=== PATIENT | male | born 1960 | race Caucasian/White ===

== ENCOUNTER 2016-09-14 22:08 | Inpatient (IN) | payer OTHER, MEDICARE ==
[~2016-09-14] VITALS: Ht 165.1 cm; Wt 68.2 kg
[~2016-09-14 22:08] MED LIST: AGGR20025 PO; AMAR2TAB PO; BENI20TA25 PO; JANU50TA9 PO; OXYC-360 PO; REST30CA PO; provastatin PO
[2016-09-14 22:09] VITALS: BP 194/89; PULSE 89; RESP 16; TEMP 98.8; O2SAT 97
--- NOTE | 2016-09-14 22:20 | PD ---
Physical Exam Time Seen by Provider: 22:16 Narrative 56yo M c/o left sided weakness that started this afternoon between 1:30 and 5pm. noticed left side w/ decreased movement and strength; also while he was walking she noticed him leaning to L side and dragging L foot. Hx stroke in 2007 and apr 2016. Patient brought strait back to room. Data Data Last Documented VS Vital Signs Date Time Temp Pulse Resp B/P Pulse Ox O2 Delivery O2 Flow Rate FiO2 09/14/16 22:09 98.8 89 16 194/89 97 Room Air MDM Supervised Visit with ABDIRASHID: Geovanna Sanchez Sep 14, 2016 22:20
[2016-09-14] MEDS ORDERED: SODIUM CHLORIDE 0.9% FLUSH 10 ML FLUSH IVF PRN (22:30)
[2016-09-14 22:38] VITALS: RESP 16; O2SAT 96
--- NOTE | 2016-09-14 22:38 | PD ---
HPI Chief Complaint: Neuro Symptoms/ Deficits Time Seen by Provider: 22:30 Travel History International Travel<30 days: No Contact w/Intl Traveler<30days: No Traveled to known affect area: No History of Present Illness HPI The patient is a 56-year-old male who presents emergency department for left- sided deficits and change in speech that occurred earlier today. The states she left her approximately 9:30 AM, he was at baseline. The daughter came by the house approximately 12:30 PM and the patient was at baseline. When the returned home she noted that the patient's voice was somewhat different, if felt "strange", she also noted he had difficulty lifting his left arm and appeared to be dragging his left leg when he was walking. She also states that he was leaning slightly to the left when ambulating. The patient does have a history of previous CVA, first which left him with short term memory difficulty, also had a CVA in April 2016 which left him with no significant permanent disabilities according to the . The patient' s symptoms started some time earlier today, most likely after 12:30 PM, onset is not known. The patient does complain of left upper extremity weakness as well as slight change in voice. He denies any acute chest pain, shortness of breath, nausea, vomiting, abdominal pain, or headache. The patient's pullman conductor is Dr. Burciaga and the patient was going to be referred to see a neurologist, Dr. Blanc, according to the . PFSH Past Medical History Hx Anticoagulant Therapy: Yes Cancer: No Cardiovascular Problems: No High Cholesterol: Yes Chemotherapy: No Cerebrovascular Accident: Yes Diabetes: Yes Patient Takes Glucophage: Yes Diminished Hearing: No Glaucoma: No Hepatitis: No Hiatal Hernia: No Hypertension: Yes Medical other: Yes (GERD, H/O CVA 06/27 W/ SHORT TERM MEMORY LOSS) Respiratory: No Sleep Apnea: Yes Thyroid Disease: No Tetanus Vaccination: Unknown Influenza Vaccination: No Past Surgical History Eye Surgery: Yes (right eye surgery) Pacemaker: No Social History Alcohol Use: No Tobacco Use: No Substance Use: No Allergies-Medications (Allergen,Severity, Reaction): Coded Allergies: Bactrim (Unverified Allergy, Severe, rash itch and patches, 09/14/16) Niacin (Unverified Allergy, Severe, redness,itching ,rash, 09/14/16) Uncoded Allergies: crestor (Allergy, Severe, muscle aches, 05/17/09) Reported Meds & Prescriptions Reported Meds & Active Scripts Active Reported Oxybutynin ER 24 HR (Oxybutynin Chloride) 10 Mg Tab 10 Mg PO DAILY Losartan (Losartan Potassium) 100 Mg Tab 100 Mg PO DAILY Levothyroxine (Levothyroxine Sodium) 75 Mcg Tab 75 Mcg PO DAILY Plavix (Clopidogrel Bisulfate) 75 Mg Tab 75 Mg PO DAILY Glimepiride 2 Mg Tab 2 Mg PO DAILY Take with breakfast or first main meal Coreg (Carvedilol) 6.25 Mg Tab 6.25 Mg PO BID Synjardy (Empagliflozin-Metformin) 5-1,000 Mg Tab 1 Tab PO BIDPC Atorvastatin (Atorvastatin Calcium) 80 Mg Tab 80 Mg PO HS Review of Systems Except as stated in HPI: all other systems reviewed are Neg General / Constitutional: No: Fever Eyes: No: Visual changes HENT: No: Headaches, Neck Pain Cardiovascular: No: Chest Pain or Discomfort Respiratory: No: Shortness of Breath Gastrointestinal: No: Nausea, Vomiting, Abdominal Pain Musculoskeletal: Positive: Weakness Neurologic: Positive: Weakness, Focal Abnormalities, Ataxia, Slurred Speech, Paresthesia, Sensory Disturbance Physical Exam Narrative GENERAL: Awake, alert, pleasant 56-year-old male who appears his stated age and is in no acute respiratory distress. SKIN: Focused skin assessment warm/dry. HEAD: Atraumatic. Normocephalic. EYES: Pupils equal and round. No scleral icterus. No injection or drainage. ENT: No nasal bleeding or discharge. Mucous membranes pink and moist. NECK: Trachea midline. No JVD. CARDIOVASCULAR: Regular rate and rhythm. No murmur appreciated. RESPIRATORY: No accessory muscle use. Clear to auscultation. Breath sounds equal bilaterally. GASTROINTESTINAL: Abdomen soft, non-tender, nondistended. No rebound tenderness. MUSCULOSKELETAL: No obvious deformities. No clubbing. No cyanosis. No edema. Well-healed scar over the left shoulder. NEUROLOGICAL: Awake and alert. Pupils are equal round reactive to light. EOMs are intact. He is able to see fingers at a distance of 2 feet without difficulty. Mild asymmetry of the smile, minimal change in the left nasolabial fold. Drift of the left upper extremity with weakness with geological aide and with extension of the elbow. No drift of the right upper extremity or lower extremities. Sensation is symmetric on the lower extremities, but slightly diminished in the left arm and left face. Finger to nose is normal. Heel-to- mckeon is normal. Patient is oriented to person and place, but did not get the current year or president of [facility]. PSYCHIATRIC: Appropriate mood and affect; insight and judgment normal. Data Data Last Documented VS Vital Signs Date Time Temp Pulse Resp B/P Pulse Ox O2 Delivery O2 Flow Rate FiO2 09/14/16 23:15 90 20 170/82 95 Room Air 09/14/16 22:09 98.8 Orders Electrocardiogram (09/14/16 22:30) Prothrombin Time / Inr (Pt) (09/14/16 22:30) Act Partial Throm Time (Ptt) (09/14/16 22:30) Complete Blood Count With Diff (09/14/16 22:30) Comprehensive Metabolic Panel (09/14/16 22:30) Creatine Kinase (Cpk) (09/14/16 22:30) Troponin I (09/14/16 22:30) Urinalysis - C+S If Indicated (09/14/16 22:30) Ct Brain W/O Iv Contrast(Rout) (09/14/16 22:30) Chest, Single Ap (09/14/16 22:30) Ecg Monitoring (09/14/16 22:30) Iv Access Insert/Monitor (09/14/16 22:30) Oximetry (09/14/16 22:30) Sodium Chloride 0.9% Flush (Ns Flush) (09/14/16 22:30) Labetalol Inj (Trandate Inj) (09/14/16 23:15) Type And Screen (09/14/16 23:17) Consult Neurosurgery (09/14/16 ) Clevidipine Inj (Cleviprex Inj) (09/14/16 23:30) Admit Order (Ed Use Only) (09/14/16 23:28) Labs Laboratory Tests Test 09/14/16 22:30 White Blood Count 9.5 TH/MM3 Red Blood Count 4.48 MIL/MM3 Hemoglobin 13.9 GM/DL Hematocrit 39.6 % Mean Corpuscular Volume 88.4 FL Mean Corpuscular Hemoglobin 31.1 PG Mean Corpuscular Hemoglobin 35.1 % Concent Red Cell Distribution Width 13.5 % Platelet Count 194 TH/MM3 Mean Platelet Volume 8.8 FL Neutrophils (%) (Auto) 54.1 % Lymphocytes (%) (Auto) 35.3 % Monocytes (%) (Auto) 8.4 % Eosinophils (%) (Auto) 1.5 % Basophils (%) (Auto) 0.7 % Neutrophils # (Auto) 5.1 TH/MM3 Lymphocytes # (Auto) 3.4 TH/MM3 Monocytes # (Auto) 0.8 TH/MM3 Eosinophils # (Auto) 0.1 TH/MM3 Basophils # (Auto) 0.1 TH/MM3 CBC Comment DIFF FINAL Differential Comment Prothrombin Time 9.7 SEC Prothromb Time International 0.9 RATIO Ratio Activated Partial 24.2 SEC Thromboplast Time Sodium Level 142 MEQ/L Potassium Level 3.5 MEQ/L Chloride Level 104 MEQ/L Carbon Dioxide Level 30.2 MEQ/L Anion Gap 8 MEQ/L Blood Urea Nitrogen 22 MG/DL Creatinine 1.22 MG/DL Estimat Glomerular Filtration 61 ML/MIN Rate Random Glucose 109 MG/DL Calcium Level 9.0 MG/DL Total Bilirubin 0.2 MG/DL Aspartate Amino Transf 18 U/L (AST/SGOT) Alanine Aminotransferase 24 U/L (ALT/SGPT) Alkaline Phosphatase 79 U/L Total Creatine Kinase 74 U/L Troponin I LESS THAN 0.02 NG/ML Total Protein 6.9 GM/DL Albumin 3.7 GM/DL Blood Type A NEGATIVE Blood Bank Comment MDM Medical Decision Making Medical Screen Exam Complete: Yes Emergency Medical Condition: Yes Medical Record Reviewed: Yes Interpretation(s) Laboratory Tests Test 09/14/16 22:30 White Blood Count 9.5 TH/MM3 Red Blood Count 4.48 MIL/MM3 Hemoglobin 13.9 GM/DL Hematocrit 39.6 % Mean Corpuscular Volume 88.4 FL Mean Corpuscular Hemoglobin 31.1 PG Mean Corpuscular Hemoglobin 35.1 % Concent Red Cell Distribution Width 13.5 % Platelet Count 194 TH/MM3 Mean Platelet Volume 8.8 FL Neutrophils (%) (Auto) 54.1 % Lymphocytes (%) (Auto) 35.3 % Monocytes (%) (Auto) 8.4 % Eosinophils (%) (Auto) 1.5 % Basophils (%) (Auto) 0.7 % Neutrophils # (Auto) 5.1 TH/MM3 Lymphocytes # (Auto) 3.4 TH/MM3 Monocytes # (Auto) 0.8 TH/MM3 Eosinophils # (Auto) 0.1 TH/MM3 Basophils # (Auto) 0.1 TH/MM3 CBC Comment DIFF FINAL Differential Comment Prothrombin Time 9.7 SEC Prothromb Time International 0.9 RATIO Ratio Activated Partial 24.2 SEC Thromboplast Time Last Impressions Head CT 09/14/162229 Signed Impressions: Service Date/Time: Wednesday, September 14, 2016 22:50 - CONCLUSION: 1. There is a 6 mm hyperdensity in the superior anterior left thalamus suggestive of a focal hemorrhage. No surrounding mass effect. 2. Stable appearance to old infarctions involving left and right supratentorial brain. Jas Whittaker MD Chest X-Ray 09/14/162229 Signed Impressions: Service Date/Time: Wednesday, September 14, 2016 22:30 - CONCLUSION: No acute disease. Eugene Gutierrez MD EKG reveals normal sinus rhythm with a rate of 90. Low QRS voltage in precordial leads. Nonspecific T-wave changes. Differential Diagnosis Differential diagnosis includes CVA, TIA, delirium, intracranial hemorrhage, hypoglycemia, hyponatremia. Narrative Course IV was established, labs are drawn and sent, and the patient was placed on cardiac telemetry monitoring and continuous pulse oximetry monitoring. EKG was ordered and interpreted. Chest x-rays obtained. The patient went for stat CT of the brain. Patient is not a candidate for stroke alert, onset of symptoms is not known, last seen normal according to family approximately 12:30 PM, approximately 10 hours prior to arrival. The patient's platelets are normal, INR is normal, CT reveals a hemorrhage in the left thalamus measuring 6 mm. The patient's blood pressure was mildly elevated 187/95 with a heart rate in 90 , therefore, he was administered 1 dose of labetalol. The on-call neurosurgeon , Dr. Low, was paged at 11:15 PM. The patient does take Plavix on a daily basis. I discussed the patient with Dr. Low at 11:18 PM who requests admission to the intensive surgical care unit in the speech pathology assistant for consultation to himself. No acute surgical intervention. Type and screen was sent to lab. Critical Care Narrative Aggregate critical care time was 35 minutes. Time to perform other separately billable procedures was not included in the critical care time. My time did not include minutes spent treating any other patients simultaneously or on activities that did not directly contribute to the patient's treatment. The services I provided to this patient were to treat and/or prevent clinically significant deterioration that could result in: Increase in neurologic deficits , herniation, arrhythmia, . I provided critical care services requiring my management, as noted below: Chart data review, documentation time, medication orders and management, vital sign assessments/reviewing monitor data, ordering and reviewing lab tests, ordering and interpreting/reviewing x-rays and diagnostic studies, care of the patient and discussion of the patient with the admitting physicians. Physician Communication Physician Communication The on-call neurosurgeon was paged at 11:15 PM. I discussed the patient with Dr. Low who recommends admission to the intensive surgical care unit in the speech pathology assistant. I discussed patient with Dr. Ken who agrees with admission. Diagnosis Primary Impression: Nontraumatic thalamic hemorrhage Admitting Information Admitting Physician Requests: Admit Condition: Stable Nishant Gould MD Sep 14, 2016 22:38
[2016-09-14] MEDS ORDERED: EMPA1TAB15 PO (22:42)
[2016-09-14] MEDS ORDERED: LOSA100T PO (22:42)
[2016-09-14] MEDS ORDERED: GLIM2TAB PO (22:42)
[2016-09-14] MEDS ORDERED: OXYB10TA PO (22:42)
[2016-09-14] MEDS ORDERED: LEVO75TA3 PO (22:42)
[2016-09-14] MEDS ORDERED: PLAV75TA29 PO (22:42)
[2016-09-14] MEDS ORDERED: CARV6.25 PO (22:42)
[2016-09-14] MEDS ORDERED: ATOR1TAB18 PO (22:42)
--- NOTE | 2016-09-14 22:46 | RADRPT ---
EXAM DATE/TIME: 09/14/2016 22:30 [facility] COMPARISON: No previous studies available for comparison. INDICATIONS : Short of breath MEDICAL HISTORY : Stroke. Cardiovascular disease. SURGICAL HISTORY : None. ENCOUNTER: Initial ACUITY: 1 day PAIN SCORE: 0/10 LOCATION: Bilateral chest FINDINGS: A single view of the chest demonstrates the lungs to be symmetrically aerated without evidence of mas s, infiltrate or effusion. The cardiomediastinal contours are unremarkable. Osseous structures are intact. CONCLUSION: No acute disease. Eugene Gutierrez MD on September 14, 2016 at 22:44 Board Certified Radiologist. This report was verified electronically.
[2016-09-14 22:51] LABS: AUTOMATED NEUTROPHIL # 5.1 TH/MM3 (1.8-7.7); BASOPHIL # 0.1 TH/MM3 (0-0.2); BASOPHIL % 0.7 % (0.0-2.0); EOSINOPHIL # 0.1 TH/MM3 (0-0.4); EOSINOPHIL % 1.5 % (0.0-4.0); HEMATOCRIT 39.6 % (39.0-51.0); HEMO FLAGS DIFF FINAL; LYMPH % 35.3 % (9.0-44.0); LYMPHOCYTE # 3.4 TH/MM3 (1.0-4.8); MEAN CELL VOLUME 88.4 FL (80.0-100.0); MEAN CORPUSCULAR HEMOGLOBIN 31.1 PG (27.0-34.0); MEAN CORPUSCULAR HGB CONC 35.1 % (32.0-36.0); MONO % 8.4 % (0.0-8.0); NEUT % 54.1 % (16.0-70.0); PLATELET COUNT 194 TH/MM3 (150-450); RED BLOOD COUNT 4.48 MIL/MM3 (4.50-5.90); RED CELL DISTRIBUTION WIDTH 13.5 % (11.6-17.2); WHITE BLOOD COUNT 9.5 TH/MM3 (4.0-11.0)
--- NOTE | 2016-09-14 23:03 | RADRPT ---
EXAM DATE/TIME: 09/14/2016 22:50 [facility] COMPARISON: CT BRAIN W/O CONTRAST, December 18, 2014, 17:44. INDICATIONS : General weakness. RADIATION DOSE: 40.24 CTDIvol (mGy) MEDICAL HISTORY : Hypertension. Diabetes mellitus type 2. CVA. SURGICAL HISTORY : None. ENCOUNTER: Initial ACUITY: 1 day PAIN SCALE: 0/10 LOCATION: cranial TECHNIQUE: Multiple contiguous axial images were obtained of the head. Using automated exposure control and adj ustment of the mA and/or kV according to patient size, radiation dose was kept as low as reasonably a chievable to obtain optimal diagnostic quality images. DICOM format image data is available electro nically for review and comparison. FINDINGS: CEREBRUM: Old infarctions involving the left caudate and right paraventricular region is similar in appearance to prior CT in November 2014. There is a new rounded hyperdensity measuring 6 mm located in the sup erior left thalamus, best seen on image #14. Ventricles are enlarged, stable from prior. No evidenc e midline shift. No extra-axial fluid collections. No evidence of mass effect. POSTERIOR FOSSA: The cerebellum and brainstem are intact. The 4th ventricle is midline. The cerebellopontine angle i s unremarkable. EXTRACRANIAL: The visualized portion of the orbits is intact. SKULL: The calvaria is intact. No evidence of skull fracture. CONCLUSION: 1. There is a 6 mm hyperdensity in the superior anterior left thalamus suggestive of a focal hemorrha ge. No surrounding mass effect. 2. Stable appearance to old infarctions involving left and right supratentorial brain. Jas Whittaker MD on September 14, 2016 at 22:57 Board Certified Radiologist. This report was verified electronically.
[2016-09-14 23:04] LABS: APTT (PATIENT) 24.2 SEC (24.3-30.1); INTERNATIONAL NORMALIZED RATIO 0.9 RATIO; PROTHROMBIN TIME - PATIENT 9.7 SEC (9.8-11.6)
[2016-09-14 23:15] VITALS: BP 170/82; PULSE 90; RESP 20; O2SAT 95
[2016-09-14] MEDS ORDERED: LABETALOL HCL 100 MG/20 ML VIAL IV PUSH ONE (23:15)
[2016-09-14 23:16] LABS: ALT (GPT) 24 U/L (12-78); ANION GAP 8 MEQ/L (5-15); AST (GOT) 18 U/L (15-37); BICARBONATE 30.2 MEQ/L (21.0-32.0); BLOOD UREA NITROGEN 22 MG/DL (7-18); CHLORIDE 104 MEQ/L (98-107); GLOMERULAR FILTRATION RATE 61 ML/MIN (>89); POTASSIUM 3.5 MEQ/L (3.5-5.1); SODIUM (NA) 142 MEQ/L (136-145)
[2016-09-14 23:20] LABS: ALKALINE PHOSPHATASE 79 U/L (45-117); TOTAL BILIRUBIN ADULT 0.2 MG/DL (0.2-1.0)
[2016-09-14 23:28] LABS: CREATINE KINASE 74 U/L (39-308)
[2016-09-14 23:37] VITALS: BP 166/82; PULSE 90; RESP 22; O2SAT 95
[2016-09-15] VITALS (15 sets, daily range): BP systolic 128–163; BP diastolic 71–83; PULSE 84–98; RESP 16–23; TEMP 98.1–98.5; O2SAT 95–99
[2016-09-15] MEDS: CLEVIDIPINE INJ 50 ML IV SCH ×2 (00:39→20:05)
[2016-09-15] MEDS ORDERED: ACETAMINOPHEN/HYDROcodone 325 MG/5 MG TAB PO PRN (00:45)
[2016-09-15] MEDS ORDERED: DEXTROSE 50% IN WATER 50 ML VIAL(D50) IV PRN (00:45)
[2016-09-15] MEDS ORDERED: RESP: ALBUTEROL 2.5 MG/3 ML NEB (PRN) INH (00:45)
[2016-09-15] MEDS ORDERED: MORPHINE SULFATE 4 MG/ML INJ IV PRN (00:45)
[2016-09-15] MEDS ORDERED: BISACODYL 10 MG SUPP RECTAL PRN (00:45)
[2016-09-15] MEDS ORDERED: SODIUM CHLORIDE 0.9% FLUSH 10 ML FLUSH IV FLUSH PRN (00:45)
[2016-09-15] MEDS ORDERED: GLUCAGON 1 MG/ML VIAL OTHER PRN (00:45)
[2016-09-15] MEDS ORDERED: MAGNESIUM HYDROXIDE SUSP 30 ML CUP PO PRN (00:45)
[2016-09-15] MEDS ORDERED: ONDANSETRON HCL 4 MG/2 ML VIAL IV PRN (00:45)
[2016-09-15] MEDS ORDERED: SENNOSIDES 8.6 MG TAB PO PRN (00:45)
[2016-09-15] MEDS ORDERED: MISCELLANEOUS NURSING INFORMATION XX SCH (00:45)
[2016-09-15] MEDS ORDERED: LACTULOSE SYRUP 20 GM/30 ML CUP PO PRN (00:45)
[2016-09-15] MEDS ORDERED: CHLORHEXIDINE GLUCONATE 2 % 1 PACK (2 CLOTHS) TOP PRN (00:45)
[2016-09-15] MEDS: SODIUM CHLOR 0.9% 1000 ML INJ 1,000 ML IV SCH ×2 (00:54→12:51)
--- NOTE | 2016-09-15 00:58 | HHI.HP ---
[facility] Service Critical Care Medicine Primary Care Physician Non-Staff Admission Diagnosis 6 mm left thalamic hemorrhage Diagnosis: (1) Nontraumatic thalamic hemorrhage Diagnosis: Principal (2) Hypertension Diagnosis: Principal (3) Dyslipidemia Diagnosis: Principal (4) Diabetes mellitus Diagnosis: Principal (5) FRANCHESKA (obstructive sleep apnea) Diagnosis: Principal (6) Gastroesophageal reflux disease Diagnosis: Principal (7) Hypothyroidism Diagnosis: Principal (8) Acute kidney injury Diagnosis: Principal (9) History of CVA (cerebrovascular accident) Diagnosis: Principal Chief Complaint: Weakness Travel History International Travel<30 Days: No Contact w/Intl Traveler <30 Da: No Traveled to Known Affected Are: No History of Present Illness 56-year-old male right-handed male. Date of admission 09/15/2016. Past medical history includes prior CVA 2007 in 2017, hypertension, dyslipidemia , diabetes mellitus, gastroesophageal reflux disease, obstructive sleep apnea patient was last seen his normal state of the 12:30 today. With falls and occludes increasing confusion, left facial droop subjectively the left upper extremity/sensation. According to daughter, patient is more confused than his baseline.. Upon arrival, patient had imaging the brain from which revealed a left basal ganglia superior anterior bleed.mass or shift. Patient was hypertensive with systolic in the 180s. Dr. Low was notified and recommended bung sewer admit patient for further evaluation treatment. Patient is currently on a Cleviprex gtt to maintain systolic blood pressure less than 150.. Noted left facial droop, left pronator drift and decreased sensation to left upper extremity. Review of Systems Constitutional: COMPLAINS OF: Fatigue, DENIES: Fever, Weight gain, Weight loss Endocrine: DENIES: Polydipsia, Polyuria Eyes: DENIES: Blurred vision, Double Vision Ears, nose, mouth, throat: DENIES: Tinnitus Respiratory: DENIES: Apneas Cardiovascular: DENIES: Chest pain Gastrointestinal: DENIES: Abdominal pain Genitourinary: DENIES: Urinary frequency Musculoskeletal: DENIES: Joint pain Integumentary: DENIES: Abnormal pigmentation Hematologic/lymphatic: DENIES: Bruising Neurologic: COMPLAINS OF: Localized weakness, Poor Balance, DENIES: Abnormal gait, Tremor Psychiatric: COMPLAINS OF: Anxiety, Depression Past Family Social History Allergies: Coded Allergies: Bactrim (Unverified Allergy, Severe, rash itch and patches, 09/14/16) Niacin (Unverified Allergy, Severe, redness,itching ,rash, 09/14/16) Uncoded Allergies: crestor (Allergy, Severe, muscle aches, 05/17/09) Past Medical History CVA Urge incontinence FRANCHESKA Hypertension Dyslipidemia Diabetes mellitus type 2 Hypothyroidism Past Surgical History Cataract/right Reported Medications Oxybutynin ER 24 HR (Oxybutynin Chloride) 10 Mg Tab 10 Mg PO DAILY Losartan (Losartan Potassium) 100 Mg Tab 100 Mg PO DAILY Levothyroxine (Levothyroxine Sodium) 75 Mcg Tab 75 Mcg PO DAILY Plavix (Clopidogrel Bisulfate) 75 Mg Tab 75 Mg PO DAILY Glimepiride 2 Mg Tab 2 Mg PO DAILY Take with breakfast or first main meal Coreg (Carvedilol) 6.25 Mg Tab 6.25 Mg PO BID Synjardy (Empagliflozin-Metformin) 5-1,000 Mg Tab 1 Tab PO BIDPC Atorvastatin (Atorvastatin Calcium) 80 Mg Tab 80 Mg PO HS Active Ordered Medications Reviewed in EMR Social History No tobacco alcohol or IV drug use Physical Exam Vital Signs Vital Signs Date Time Temp Pulse Resp B/P Pulse Ox O2 Delivery O2 Flow Rate FiO2 09/15/16 00:30 91 21 159/79 97 Room Air 09/14/16 23:37 90 22 166/82 95 Room Air 09/14/16 23:15 90 20 170/82 95 Room Air 09/14/16 22:38 16 96 Room Air 09/14/16 22:18 16 09/14/16 22:09 98.8 89 16 194/89 97 Room Air Physical Exam GENERAL: 56-year-old male, critically ill currently resting in bed in no acute distress SKIN: Warm and dry. No rash HEAD: Atraumatic. Normocephalic. EYES: Pupils equal and round about 3 mm bilaterally and reactive. No scleral icterus. No injection or drainage. ENT: No nasal bleeding or discharge. Mucous membranes pink and moist. NECK: Trachea midline. No JVD. CARDIOVASCULAR: Regular rate and rhythm. S1, S2. No S4. Without murmurclear to auscultation. Breath sounds equal bilaterally. GASTROINTESTINAL: Abdomen soft, non-tender, nondistended. Hepatic and splenic margins not palpable. MUSCULOSKELETAL: Extremities without in peripheral edema. NEUROLOGICAL: Awake and alert. No left facial droop. Decreased sensation to sensation left face. Blood BS. Positive pronator drift left upper extremity. Dysmentia Left upper extremity. Strength 4-5 left upper extremity. 5 out of 5 right upper/bilateral lower extremity. Awake and oriented to person and place only. Laboratory Laboratory Tests Test 09/14/16 22:30 White Blood Count 9.5 Red Blood Count 4.48 Hemoglobin 13.9 Hematocrit 39.6 Mean Corpuscular Volume 88.4 Mean Corpuscular Hemoglobin 31.1 Mean Corpuscular Hemoglobin 35.1 Concent Red Cell Distribution Width 13.5 Platelet Count 194 Mean Platelet Volume 8.8 Neutrophils (%) (Auto) 54.1 Lymphocytes (%) (Auto) 35.3 Monocytes (%) (Auto) 8.4 Eosinophils (%) (Auto) 1.5 Basophils (%) (Auto) 0.7 Neutrophils # (Auto) 5.1 Lymphocytes # (Auto) 3.4 Monocytes # (Auto) 0.8 Eosinophils # (Auto) 0.1 Basophils # (Auto) 0.1 CBC Comment DIFF FINAL Differential Comment Prothrombin Time 9.7 Prothromb Time International 0.9 Ratio Activated Partial 24.2 Thromboplast Time Sodium Level 142 Potassium Level 3.5 Chloride Level 104 Carbon Dioxide Level 30.2 Anion Gap 8 Blood Urea Nitrogen 22 Creatinine 1.22 Estimat Glomerular Filtration 61 Rate Random Glucose 109 Calcium Level 9.0 Total Bilirubin 0.2 Aspartate Amino Transf 18 (AST/SGOT) Alanine Aminotransferase 24 (ALT/SGPT) Alkaline Phosphatase 79 Total Creatine Kinase 74 Troponin I LESS THAN 0.02 Total Protein 6.9 Albumin 3.7 Blood Type A NEGATIVE Antibody Screen NEGATIVE Blood Bank Comment Result Diagram: 09/14/16222909/14/162229 Imaging Last Impressions Head CT 09/14/162229 Signed Impressions: Service Date/Time: Wednesday, September 14, 2016 22:50 - CONCLUSION: 1. There is a 6 mm hyperdensity in the superior anterior left thalamus suggestive of a focal hemorrhage. No surrounding mass effect. 2. Stable appearance to old infarctions involving left and right supratentorial brain. Jas Whittaker MD Chest X-Ray 09/14/162229 Signed Impressions: Service Date/Time: Wednesday, September 14, 2016 22:30 - CONCLUSION: No acute disease. Eugene Gutierrez MD Assessment and Plan Assessment and Plan Neuro/Psych: Left superior anterior thalamic CVA History CVA with old supratentorial CV is noted Dr. Low/neurosurgery consulted Plan [facility] head [facility] CV: Hypertension Dyslipidemia On losartan 100 mg daily and Coreg 6.25 mg twice a day at home for hypertension. Continue Cleviprex drip/labetalol 10 mg every hour when necessary to maintain systolic blood pressure less than 150 On Crestor 80 members at night for dyslipidemia. Hold Plavix Resp: FRANCHESKA Nasal cannula to maintain saturations greater than equal to 92% Spirometry while awake GI: Gastroesophageal reflux disease Currently nothing by mouth. Protonix for GI prophylaxis Bela-Colace for bowel regimen : Incontinence Continue oxybutynin 10 mg by mouth daily. Endo: Hypothyroidism Diabetes mellitus Continue Levoxyl 75 mg by mouth daily. Check TSH Hold metformin/glipizide 1000/5 one tablet twice a day. Sliding scale insulin Accu-Cheks to maintain euglycemia/low regimen Renal: Monitor urine output closely Accurate I's and O's Heme: CBC within normal limits Monitor coags ID: Currently no indication for antibiotic therapy. Monitor fever/sensitivities infection FEN: Replace electrolytes as clinically indicated MSK: PT/OT evaluate and treat Access - Utilize peripheral IV. Central line if indicated Prophylaxis - GI - Protonix - DVT - SCD/from) prophylaxis contra indicated status post bleed Level III admission Code Status Full code Discussed Condition With Dr. Gould. Patient. Care plan discussed all questions answered. Problem Qualifiers (1) Hypertension: Qualified Code: I10 - Essential hypertension (2) Diabetes mellitus: Qualified Code: E11.8 - Type 2 diabetes mellitus with complication, without long-term current use of insulin (3) Gastroesophageal reflux disease: Qualified Code: K21.9 - Gastroesophageal reflux disease, esophagitis presence not specified (4) Hypothyroidism: Qualified Code: E03.9 - Hypothyroidism, unspecified type Jd Ken MD Sep 15, 2016 00:57
[2016-09-15] MEDS: CHLORHEXIDINE GLUCONATE 2 % 1 PACK (2 CLOTHS) TOP SCH (04:00)
[2016-09-15 04:16] LABS: BACTERIA, URINE RARE /hpf; BLOOD, URINE NEG (NEG); COMMENT (UR) CATH-CULTURE IND; CULTURE IF INDICATED CATH CULTURE IND; GLUCOSE,URINE 1000 mg/dL (NEG); KETONE, URINE TRACE mg/dL (NEG); NITRITE,URINE NEG (NEG); SQUAMOUS EPITHELIAL CELL URINE 1 /hpf (0-5); URINE COLOR LIGHT-YELLOW (YELLW/STRAW)
[2016-09-15] MEDS: INSULIN NovoLIN REGULAR SUPPLEMENTAL SCALE SQ SCH ×4 (06:10→20:23)
[2016-09-15] MEDS: LEVOTHYROXINE SODIUM 75 MCG TAB PO SCH (06:10)
[2016-09-15] MEDS: SODIUM CHLORIDE 0.9% FLUSH 10 ML FLUSH IV FLUSH SCH ×2 (08:20→20:00)
[2016-09-15] MEDS: PANTOPRAZOLE SODIUM 40 MG VIAL IV SCH (08:20)
[2016-09-15] MEDS: LOSARTAN 50 MG TAB PO SCH (08:20)
[2016-09-15] MEDS: CARVEDILOL 6.25 MG TAB PO SCH ×2 (08:20→20:00)
[2016-09-15] MEDS: DOCUSATE SODIUM 50 MG/SENNA 8.6 MG TAB PO SCH ×2 (08:20→20:00)
[2016-09-15] MEDS: TOLTERODINE TARTRATE 4 MG CAP LA PO SCH (08:38)
--- NOTE | 2016-09-15 08:55 | PD.CONS ---
HPI Consult Requested By Primary Care Physician Non-Staff History of Present Illness This is a 56-year-old right-handed male. He has history of prior CVA 2008 in 2017, hypertension, dyslipidemia, diabetes mellitus, gastroesophageal reflux disease, obstructive sleep apnea. He presented with increasing confusion, left facial droop subjectively the left upper extremity/sensation. According to his daughter, he is more confused than his baseline.. Upon arrival, patient had imaging the brain from which revealed a left basal ganglia bleed.without significant mass effect or midline shift. He was hypertensive with systolic in the 180s. He is currently on a Cleviprex drip to maintain systolic blood pressure less than 150.. Noted left facial droop, left pronator drift and decreased sensation to left upper extremity. Neurosurgical consultation was requested Review of Systems Constitutional: DENIES: Diaphoretic episodes, Fatigue, Fever, Weight gain, Weight loss, Chills, Dizziness, Change in appetite, Night Sweats Endocrine: DENIES: Heat/cold intolerance, Polydipsia, Polyuria, Polyphagia Eyes: DENIES: Blurred vision, Diplopia, Eye inflammation, Eye pain, Vision loss , Photosensitivity, Double Vision Ears, nose, mouth, throat: DENIES: Tinnitus, Hearing loss, Vertigo, Nasal discharge, Oral lesions, Throat pain, Hoarseness, Ear Pain, Running Nose, Epistaxis, Sinus Pain, Toothache, Odynophagia Respiratory: DENIES: Apneas, Cough, Snoring, Wheezing, Hemoptysis, Sputum production, Shortness of breath Cardiovascular: DENIES: Chest pain, Palpitations, Syncope, Dyspnea on Exertion , PND, Lower Extremity Edema, Orthopnea, Claudication Gastrointestinal: DENIES: Abdominal pain, Black stools, Bloody stools, Constipation, Diarrhea, Nausea, Vomiting, Difficulty Swallowing, Anorexia Genitourinary: DENIES: Sexual dysfunction, Urinary frequency, Urinary incontinence, Urgency, Hematuria, Dysuria, Nocturia, Penile Discharge, Testicular Pain, Testicular Swelling Musculoskeletal: DENIES: Joint pain, Muscle aches, Stiffness, Joint Swelling, Back pain, Neck pain Integumentary: DENIES: Abnormal pigmentation, Nail changes, Pruritus, Rash Hematologic/lymphatic: DENIES: Bruising, Lymphadenopathy Immunologic/allergic: DENIES: Eczema, Urticaria Neurologic: COMPLAINS OF: Headache, Localized weakness, DENIES: Paresthesias, Seizures, Speech Problems, Tremor, Poor Balance Psychiatric: DENIES: Anxiety, Confusion, Mood changes, Depression, Hallucinations, Agitation, Suicidal Ideation, Homicidal Ideation, Delusions Past Family Social History Allergies: Coded Allergies: Bactrim (Unverified Allergy, Severe, rash itch and patches, 09/14/16) Niacin (Unverified Allergy, Severe, redness,itching ,rash, 09/14/16) Uncoded Allergies: crestor (Allergy, Severe, muscle aches, 05/17/09) Past Medical History CVA Urge incontinence FRANCHESKA Hypertension Dyslipidemia Diabetes mellitus type 2 Hypothyroidism Past Surgical History Cataract surgery Reported Medications Oxybutynin ER 24 HR (Oxybutynin Chloride) 10 Mg Tab 10 Mg PO DAILY Losartan (Losartan Potassium) 100 Mg Tab 100 Mg PO DAILY Levothyroxine (Levothyroxine Sodium) 75 Mcg Tab 75 Mcg PO DAILY Plavix (Clopidogrel Bisulfate) 75 Mg Tab 75 Mg PO DAILY Glimepiride 2 Mg Tab 2 Mg PO DAILY Take with breakfast or first main meal Coreg (Carvedilol) 6.25 Mg Tab 6.25 Mg PO BID Synjardy (Empagliflozin-Metformin) 5-1,000 Mg Tab 1 Tab PO BIDPC Atorvastatin (Atorvastatin Calcium) 80 Mg Tab 80 Mg PO HS Active Ordered Medications Current Medications Sodium Chloride (NS Flush) 2 ml UNSCH PRN IVF FLUSH AFTER USING IV ACCESS; Start 09/14/16 at 22:30; Stop 09/15/16 at 00:58; Status DC Labetalol HCl 20 mg 20 mg ONCE ONCE IV PUSH Last administered on 09/14/16 23: 31; Start 09/14/16 at 23:15; Stop 09/14/16 at 23:16; Status DC Clevidipine (Cleviprex Inj) 50 ml @ 0 mls/hr TITRATE IV Last administered on 00:39; Start 09/14/16 at 23:30 Atorvastatin Calcium (Lipitor) 80 mg HS PO ; Start 09/15/16 at 21:00 Carvedilol (Coreg) 6.25 mg BID PO Last administered on 09/15/16 08:20; Start 09/15/16 at 09:00 Levothyroxine Sodium (Synthroid) 75 mcg DAILY@07 PO ; Start 09/15/16 at 07:00 Losartan Potassium (Cozaar) 100 mg DAILY PO Last administered on 09/15/16 08: 20; Start 09/15/16 at 09:00 Tolterodine Tartrate 4 mg 4 mg DAILY PO Overactive Bladder Last administered on 09/15/16 08:38; Start 09/15/16 at 09:00 Sodium Chloride (NS 1000 ml Inj) 1,000 ml @ 84 mls/hr [id number] IV Last administered on 09/15/16 00:54; Start 09/15/16 at 00:45 Sodium Chloride (NS Flush) 2 ml UNSCH PRN IV FLUSH FLUSH AFTER USING IV ACCESS ; Start 09/15/16 at 00:45 Sodium Chloride (NS Flush) 2 ml BID IV FLUSH Last administered on 09/15/16 08: 20; Start 09/15/16 at 09:00 Acetaminophen (Tylenol) 650 mg Q6H PRN PO PAIN 1-10 AND/OR FEVER >101F; Start 09/15/16 at 00:45 Acetaminophen/ Hydrocodone Bitart (Noble 5-325 Mg) 1 tab Q4H PRN PO PAIN SCALE 1 TO 5; Start 09/15/16 at 00:45 Morphine Sulfate (Morphine Inj) 2 mg Q2H PRN IV PAIN SCALE 6 TO 10; Start 09/15 at 00:45 Pantoprazole Sodium (Protonix Inj) 40 mg DAILY IV Last administered on 08:20; Start 09/15/16 at 09:00 Ondansetron HCl (Zofran Inj) 4 mg Q6H PRN IV NAUSEA OR VOMITING; Start at 00:45 Albuterol Sulfate (Albuterol Neb) 2.5 mg Q2HR NEB PRN INH SOB/WHEEZING; Start 09/15/16 at 00:45 Miscellaneous Information 1 Q361D XX ; Start 09/15/16 at 00:45 Chlorhexidine Gluconate (Chlorhexidine 2% Cloth) 3 pack Taper DAILY@04 TOP Last administered on 09/15/16 04:00; Start 09/15/16 at 04:00; Stop 09/11/17 at 03:59 Chlorhexidine Gluconate (Chlorhexidine 2% Cloth) 3 pack UNSCH PRN TOP HYGIENIC CARE; Start 09/15/16 at 00:45 Senna/Docusate Sodium (Bela-Colace) 1 tab BID PO Last administered on t 08:20; Start 09/15/16 at 09:00 Magnesium Hydroxide (Milk Of Magnesia Liq) 30 ml Q12H PRN PO MILD - MODERATE CONSTIPATION; Start 09/15/16 at 00:45 Sennosides (Senokot) 17.2 mg Q12H PRN PO MODERATE - SEVERE CONSTIPATION; Start 09/15/16 at 00:45 Bisacodyl (Dulcolax Supp) 10 mg DAILY PRN RECTAL SEVERE CONSITIPATION; Start at 00:45 Lactulose (Lactulose Liq) 30 ml DAILY PRN PO SEVERE CONSITIPATION; Start at 00:45 Dextrose (D50w (Vial) Inj) 50 ml UNSCH PRN IV HYPOGLYCEMIA-SEE COMMENTS; Start 09/15/16 at 00:45 Glucagon (Glucagon Inj) 1 mg UNSCH PRN OTHER HYPOGLYCEMIA-SEE COMMENTS; Start 09/15/16 at 00:45 Insulin Human Regular (NovoLIN R SUPPLEMENTAL SCALE) 1 ACHS SLIDING SCALE SQ ; Start 09/15/16 at 07:00 Labetalol HCl (Trandate Inj) 10 mg Q4H PRN IV SPB > 160, HR > 65; Start at 01:00 Family History Non contributory Social History No tobacco, no alcohol or IV drug use Physical Exam Vital Signs Vital Signs Date Time Temp Pulse Resp B/P Pulse Ox O2 Delivery O2 Flow Rate FiO2 09/15/16 08:00 98.3 90 18 150/74 95 09/15/16 08:00 90 09/15/16 07:00 95 Room Air 09/15/16 06:00 88 09/15/16 04:00 98.2 88 23 150/79 96 09/15/16 04:00 Room Air 09/15/16 04:00 92 09/15/16 03:00 89 18 147/74 98 Room Air 09/15/16 02:00 87 16 159/81 99 Room Air 09/15/16 01:00 85 17 150/73 98 Room Air 09/15/16 00:30 91 21 159/79 97 Room Air 09/14/16 23:37 90 22 166/82 95 Room Air 09/14/16 23:15 90 20 170/82 95 Room Air 09/14/16 22:38 16 96 Room Air 09/14/16 22:18 16 09/14/16 22:09 98.8 89 16 194/89 97 Room Air Physical Exam The patient is alert, awake and oriented to time, place and person. Speech is fluent. Higher cognitive functions are normal. Cranial nerve examination demonstrates the pupils to be equal, round, and reactive to light. Extra-ocular movements are intact. Facial motor shows a left facial drop, sensory function are normal and symmetrical. Gross hearing is decreased, bilaterally. The uvula is midline and elevates symmetrically with the soft palate. Sternocleidomastoid and trapezius muscles have normal and symmetrical strength. Other cranial nerves are intact. Neck is soft and supple. Cervical spine has a full range of motion in anterior flexion, extension, lateral bending, and rotation without pain. There is no tenderness to palpation to the spinous processes or paraspinal muscles. Muscle testing reveals normal bulk and tone overall without rigidity, spasticity , fasciculations, or atrophy. 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 In the lower extremities, strength is 5/5 in his right iliopsoas, quadriceps, hamstrings, plantar flexion, dorsiflexion, and extensor hallicus longus with mild left sided weakness 4/5. Sensory examination is intact to light touch and sharp/dull discrimination in both the upper and lower extremities, symmetrically. Deep tendon reflexes are 2+ and symmetrical in the biceps, triceps, and brachioradialis, bilaterally, in the upper extremities. In the lower extremities , the patellar and Achilles are 2+, bilaterally. There is a bilateral plantar flexion response. Hoffmanns sign is negative. There is no clonus or other abnormal reflexes noted. Cerebellar examination is intact to [id number] test, rapid rhythmic alternating motion. Laboratory Laboratory Tests Test 09/14/16 09/15/16 22:30 03:30 Prothrombin Time 9.7 Prothromb Time International 0.9 Ratio Activated Partial 24.2 Thromboplast Time Sodium Level 142 Potassium Level 3.5 Chloride Level 104 Carbon Dioxide Level 30.2 Anion Gap 8 Blood Urea Nitrogen 22 Creatinine 1.22 Estimat Glomerular Filtration 61 Rate Random Glucose 109 Calcium Level 9.0 Total Bilirubin 0.2 Aspartate Amino Transf 18 (AST/SGOT) Alanine Aminotransferase 24 (ALT/SGPT) Alkaline Phosphatase 79 Total Creatine Kinase 74 Troponin I LESS THAN 0.02 Total Protein 6.9 Albumin 3.7 White Blood Count 9.5 Red Blood Count 4.48 Hemoglobin 13.9 Hematocrit 39.6 Mean Corpuscular Volume 88.4 Mean Corpuscular Hemoglobin 31.1 Mean Corpuscular Hemoglobin 35.1 Concent Red Cell Distribution Width 13.5 Platelet Count 194 Mean Platelet Volume 8.8 Neutrophils (%) (Auto) 54.1 Lymphocytes (%) (Auto) 35.3 Monocytes (%) (Auto) 8.4 Eosinophils (%) (Auto) 1.5 Basophils (%) (Auto) 0.7 Neutrophils # (Auto) 5.1 Lymphocytes # (Auto) 3.4 Monocytes # (Auto) 0.8 Eosinophils # (Auto) 0.1 Basophils # (Auto) 0.1 CBC Comment DIFF FINAL Differential Comment Thyroid Stimulating Hormone 0.366 3rd Gen Blood Type A NEGATIVE Antibody Screen NEGATIVE Blood Bank Comment Urine Color LIGHT-YELLOW Urine Turbidity CLEAR Urine pH 7.0 Urine Specific [place] 1.014 Urine Protein TRACE Urine Glucose (UA) 1000 Urine Ketones TRACE Urine Occult Blood NEG Urine Nitrite NEG Urine Bilirubin NEG Urine Urobilinogen LESS THAN 2.0 Urine Leukocyte Esterase SMALL Urine RBC 2 Urine WBC 11 Urine Squamous Epithelial 1 Cells Urine Bacteria RARE Urine Yeast (Budding) RARE Microscopic Urinalysis Comment CATH-CULTURE IND Date/Time Procedure Status Source Growth 09/15/16 03:30 Urine Culture Received Urine Catheterized Urine Pending Result Diagram: 09/14/16222909/14/162229 Imaging Last Impressions Head CT 09/14/162229 Signed Impressions: Service Date/Time: Wednesday, September 14, 2016 22:50 - CONCLUSION: 1. There is a 6 mm hyperdensity in the superior anterior left thalamus suggestive of a focal hemorrhage. No surrounding mass effect. 2. Stable appearance to old infarctions involving left and right supratentorial brain. Jas Whittaker MD Chest X-Ray 6/26/17 2230 Signed Impressions: Service Date/Time: Wednesday, September 14, 2016 22:30 - CONCLUSION: No acute disease. Eugene Gutierrez MD Attending Statement Intracranial bleed, neuro checks in a serial fashion. A follow-up CT of the head will be obtained in 24 hours. HTN. Treat with antihypertensives as needed Pulmonary. aggressive pulmonary toilette, nasotracheal suction, and breathing treatments with nebulizers. PT and OT evaluation Nutrition. NPO Renal. monitor closely urine output, BUN and creatinine Endocrine. Monitor serial Acu checks and SSI as needed in detail ID monitor for signs of infection Hyperlipidemia Continue Atorvastatin Hypothyroidism Check TSH level Protonix for stress ulcer prophylaxis Luke hose and SCD's for DVT prophylaxis Biju Low MD Sep 15, 2016 08:55
--- NOTE | 2016-09-15 11:00 | RADRPT ---
EXAM DATE/TIME: 09/15/2016 10:38 [facility] COMPARISON: CT BRAIN W/O CONTRAST, September 14, 2016, 22:50. INDICATIONS : Hemorrhagic stroke RADIATION DOSE: 33.88 CTDIvol (mGy) MEDICAL HISTORY : Hypertension. Diabetes mellitus type 2. Cardiovascular disease SURGICAL HISTORY : None. ENCOUNTER: Subsequent ACUITY: 2 days PAIN SCALE: 2/10 LOCATION: cranial TECHNIQUE: Multiple contiguous axial images were obtained of the head. Using automated exposure control and adj ustment of the mA and/or kV according to patient size, radiation dose was kept as low as reasonably a chievable to obtain optimal diagnostic quality images. DICOM format image data is available electro nically for review and comparison. FINDINGS: A tiny left thalamic hemorrhage is unchanged. Old bilateral basal ganglia lacunar infarcts are unchan ged. Moderate hypodensity in the deep white matter structures is grossly stable. No new acute finding s are identified. CONCLUSION: Small left thalamic hemorrhage is unchanged. Arben King MD on September 15, 2016 at 10:54 Board Certified Radiologist. This report was verified electronically.
--- NOTE | 2016-09-15 17:01 | EKG ---
Date Performed: 09/14/2016 Time Performed: 23:06:47 PTAGE: 56 years EKG: Sinus rhythm LOW QRS VOLTAGE IN PRECORDIAL LEADS CONSIDER ANTEROSEPTAL MYOCARDIAL INFARCTION-AGE INDETERMINATE MO DERATE T-WAVE ABNORMALITY, CONSIDER INFERIOR ISCHEMIA ABNORMAL ECG PREVIOUS TRACING 12/18/2014 17.14.00 DOCTOR: Donald Tobias Interpretating Date/Time 09/15/2016 17:00:24
--- NOTE | 2016-09-15 17:01 | EKG ---
Date Performed: 09/15/2016 Time Performed: 08:29:24 PTAGE: 56 years EKG: Sinus rhythm LOW QRS VOLTAGE IN PRECORDIAL LEADS CONSIDER ANTEROSEPTAL MYOCARDIAL INFARCTION , AGE INDETERMINATE ABNORMAL ECG PREVIOUS TRACING : 09/14/2016 23.06 DOCTOR: Donald Tobias Interpretating Date/Time 09/15/2016 17:00:47
[2016-09-15] MEDS: ATORVASTATIN 80 MG TAB PO SCH (20:00)
[2016-09-16] VITALS (14 sets, daily range): BP systolic 144–156; BP diastolic 76–89; PULSE 76–99; RESP 0–21; TEMP 98.5–98.6; O2SAT 95–99
[2016-09-16] MEDS: SODIUM CHLOR 0.9% 1000 ML INJ 1,000 ML IV SCH ×2 (00:26→11:32)
[2016-09-16] MEDS: CHLORHEXIDINE GLUCONATE 2 % 1 PACK (2 CLOTHS) TOP SCH (04:00)
[2016-09-16 04:29] LABS: AUTOMATED NEUTROPHIL # 7.5 TH/MM3 (1.8-7.7); BASOPHIL % 0.3 % (0.0-2.0); EOSINOPHIL # 0.1 TH/MM3 (0-0.4); EOSINOPHIL % 1.1 % (0.0-4.0); HEMATOCRIT 44.1 % (39.0-51.0); HEMO FLAGS DIFF FINAL; LYMPH % 23.3 % (9.0-44.0); LYMPHOCYTE # 2.7 TH/MM3 (1.0-4.8); MEAN CELL VOLUME 87.9 FL (80.0-100.0); MEAN CORPUSCULAR HGB CONC 35.3 % (32.0-36.0); MONO % 9.5 % (0.0-8.0); NEUT % 65.8 % (16.0-70.0); PLATELET COUNT 178 TH/MM3 (150-450); RED BLOOD COUNT 5.02 MIL/MM3 (4.50-5.90); RED CELL DISTRIBUTION WIDTH 13.4 % (11.6-17.2); WHITE BLOOD COUNT 11.4 TH/MM3 (4.0-11.0)
[2016-09-16 04:39] LABS: APTT (PATIENT) 25.4 SEC (24.3-30.1); INTERNATIONAL NORMALIZED RATIO 0.9 RATIO
[2016-09-16 04:51] LABS: ALT (GPT) 23 U/L (12-78); ANION GAP 7 MEQ/L (5-15); AST (GOT) 11 U/L (15-37); BICARBONATE 31.5 MEQ/L (21.0-32.0); BLOOD UREA NITROGEN 12 MG/DL (7-18); CHLORIDE 102 MEQ/L (98-107); GLOMERULAR FILTRATION RATE 103 ML/MIN (>89); MAGNESIUM 1.9 MG/DL (1.5-2.5); POTASSIUM 3.5 MEQ/L (3.5-5.1); SODIUM (NA) 140 MEQ/L (136-145)
[2016-09-16 04:53] LABS: ALKALINE PHOSPHATASE 83 U/L (45-117); TOTAL BILIRUBIN ADULT 0.5 MG/DL (0.2-1.0)
[2016-09-16] MEDS: LEVOTHYROXINE SODIUM 75 MCG TAB PO SCH (07:00)
[2016-09-16] MEDS: INSULIN NovoLIN REGULAR SUPPLEMENTAL SCALE SQ SCH ×4 (07:00→21:00)
[2016-09-16] MEDS: SODIUM CHLORIDE 0.9% FLUSH 10 ML FLUSH IV FLUSH SCH ×2 (09:00→20:24)
[2016-09-16] MEDS: CARVEDILOL 6.25 MG TAB PO SCH ×2 (09:32→20:24)
[2016-09-16] MEDS: TOLTERODINE TARTRATE 4 MG CAP LA PO SCH (09:32)
[2016-09-16] MEDS: LOSARTAN 50 MG TAB PO SCH (09:32)
[2016-09-16] MEDS: DOCUSATE SODIUM 50 MG/SENNA 8.6 MG TAB PO SCH ×2 (09:32→20:24)
[2016-09-16] MEDS: PANTOPRAZOLE SODIUM 40 MG VIAL IV SCH (09:33)
--- NOTE | 2016-09-16 09:43 | MB ---
cc: CHAPO FATIMA M.D. DATE OF CONSULTATION 09/16/2016 REASON FOR CONSULTATION Neurology for this 56-year-old right-handed man. History from his with a history of hypertension, non-insulin diabetes, hypercholesterolemia, hypothyroidism, who in 2007 had a stroke with some left-sided weakness which resolved about 90% and left him with some short-term memory, cognitive problems. He was put on Aggrenox and was on that until 05/12/2016 when he had another stroke with left-sided weakness. Evidently seen in [facility], was switched to Plavix when back to his baseline and then he was admitted here on 09/14/2016 after his came home and he was seen to be slumping over to the left. No fever that she knows of. That seemed to have resolved. A CT showed possible left basal ganglia hemorrhage small. REVIEW OF SYSTEMS According to the , no history of A. Fib, Coumadin, [place], CABG, stent, angioplasty, renal, hepatic, pulmonary disease, lupus, ulcer, cancer, or seizure. SOCIAL HISTORY Not a smoker or a drinker. Lives with his . FAMILY HISTORY Positive for cancer, negative for seizure, positive for stroke in his father in his 30s, but no history of blood clots or miscarriages. MEDICATIONS AT HOME He was on: 1. Plavix 2. Oxybutynin 3. Losartan 4. Thyroid medicine 5. Glyburide 6. Coreg 7. Synjardy 8. Atorvastatin PAST MEDICAL HISTORY As above, he sees Dr. Burciaga for cardiology. PHYSICAL EXAM On exam afebrile, 92, 156/76, 96. NECK: There were no carotid bruits. HEART: Regular rhythm. I do not detect a murmur. NEUROLOGICAL EXAM: Pupils are equal. Visual anderson are full. Extraocular movements intact without nystagmus. Face symmetric with normal sensation. Tongue was midline. There is no drift. He had normal strength in his upper and lower extremities bilaterally. Toes are downgoing bilaterally. DTRs trace throughout. Pinprick is intact throughout. He knows the month and the year. He follows commands well. Speech is fluent. He is not aphasic. LABORATORY DATA CBC is essentially unremarkable. UA shows a small amount of leukoesterase, 11 white cells. Coags normal. Basic metabolic profile normal except for glucose of 143. LFTs troponin, TSH all normal. CT scan of the brain shows a hypodensity bilateral basal ganglia a little bit more on the left than the right. CT of the head in 2004 did not show any sensing similar to that. He has bilateral deep frontal lobe infarcts not really cortically based. He has been in sinus rhythm. IMPRESSION History of for bilateral infarcts now possibly a small left thalamic hemorrhage which would not account for his droopiness over to the left. Whether this is incidental or an old finding and not really a hemorrhage or if he could have had a TIA is consideration. We will check an MRI of the brain, MRA of the neck, m[place] of [place], hyper-coag screen, echo, Holter or some other blood work. I will look at his [place] information. I think he could go to a regular floor with tele. I will be following him with you in the hospital. I note his initial blood pressure when he came in was 194/89. MD TRACEY [place]/PALMA /9:24 AM /9:34 AM
[2016-09-16 12:24] LABS: AMPHETAMINE, URINE NEG (NEG); BARBITURATES, URINE NEG (NEG); COCAINE, URINE NEG (NEG)
--- NOTE | 2016-09-16 12:30 | PD.TRANSFR ---
Transfer Summary Admission Date Sep 14, 2016 at 23:30 Transfer Date: Sep 17, 2016 Admitting Diagnosis 6 mm left thalamic hemorrhage Diagnoses: (1) Nontraumatic thalamic hemorrhage Diagnosis: Principal (2) Hypertension Diagnosis: Principal (3) Dyslipidemia Diagnosis: Principal (4) Diabetes mellitus Diagnosis: Principal (5) FRANCHESKA (obstructive sleep apnea) Diagnosis: Principal (6) Gastroesophageal reflux disease Diagnosis: Principal (7) Hypothyroidism Diagnosis: Principal (8) Acute kidney injury Diagnosis: Principal (9) History of CVA (cerebrovascular accident) Diagnosis: Principal Significant Findings Small left thalamic bleed associated with hypertension. No progression of bleed. Major problem is blood pressure control. Dr. Burgess following for stroke workup. Objective Vital Signs Date Time Temp Pulse Resp B/P Pulse Ox O2 Delivery O2 Flow Rate FiO2 09/16/16 09:01 96 21 09/16/16 07:00 Room Air 09/16/16 06:00 92 09/16/16 04:00 98.5 21 156/76 Intake and Output 09/15/16 09/15/16 09/16/16 08:00 16:00 00:00 Intake Total 416 ml 966 ml 623 ml Output Total 750 ml 400 ml 700 ml Balance -334 ml 566 ml -77 ml Result Diagram: 09/16/16 0353 09/16/16 0353 Imaging Last Impressions Head CT 09/14/162229 Signed Impressions: Service Date/Time: Wednesday, September 14, 2016 22:50 - CONCLUSION: 1. There is a 6 mm hyperdensity in the superior anterior left thalamus suggestive of a focal hemorrhage. No surrounding mass effect. 2. Stable appearance to old infarctions involving left and right supratentorial brain. Jas Whittaker MD Chest X-Ray 09/14/162229 Signed Impressions: Service Date/Time: Wednesday, September 14, 2016 22:30 - CONCLUSION: No acute disease. Eugene Gutierrez MD Objective Remarks GENERAL: 56-year-old male, in no acute distress SKIN: Warm and dry. No rash HEAD: Atraumatic. Normocephalic. EYES: Pupils equal and round about 2 mm bilaterally and reactive. ENT: No nasal bleeding or discharge. Mucous membranes pink and moist. NECK: Trachea midline. CARDIOVASCULAR: Regular rate and rhythm. S1, S2. No S4. No m,r. Breath sounds equal bilaterally. No JVD. GASTROINTESTINAL: Abdomen soft, non-tender, nondistended. BS active. MUSCULOSKELETAL: Warm, well perfused. NEUROLOGICAL: Awake and alert. No left facial droop. Decreased sensation to left face. Positive pronator drift left upper extremity. Dysmentia Left upper extremity. Strength 4-5 left upper extremity. 5 out of 5 right upper/ bilateral lower extremity. Awake and oriented to person and place. A/P Assessment and Plan Neuro/Psych: Left superior anterior thalamic CVA History CVA with old supratentorial CV is noted Dr. Low/neurosurgery consulted Plan for repeat head CT in a.[facility] Neurology Service evaluating. CV: Hypertension Dyslipidemia On losartan 100 mg daily and Coreg 6.25 mg twice a day at home for hypertension. Continue Cleviprex drip/labetalol 10 mg every hour when necessary to maintain systolic blood pressure less than 150 On Crestor 80 mg at night for dyslipidemia. Hold Plavix Resp: FRANCHESKA Nasal cannula to maintain saturations greater than equal to 92% Spirometry while awake GI: Gastroesophageal reflux disease Currently nothing by mouth. Protonix for GI prophylaxis Bela-Colace for bowel regimen : Incontinence Continue oxybutynin 10 mg by mouth daily. Endo: Hypothyroidism Diabetes mellitus Continue Levoxyl 75 mg by mouth daily. Check TSH Hold metformin/glipizide 1000/5 one tablet twice a day. Sliding scale insulin Accu-Cheks to maintain euglycemia/low regimen Renal: Monitor urine output closely Accurate I's and O's Heme: CBC within normal limits Monitor coags ID: Currently no indication for antibiotic therapy. Monitor fever/sensitivities infection FEN: Replace electrolytes as clinically indicated MSK: PT/OT evaluate and treat Access - Utilize peripheral IV. Central line if indicated Prophylaxis - GI - Protonix - DVT - SCD/from) prophylaxis contra indicated status post bleed Overall impression: Stable respiratory and hemodynamic function. Transfer to floor. Clayton Medrano MD Sep 16, 2016 12:30
[2016-09-16] MEDS: CLEVIDIPINE INJ 50 ML IV SCH (15:17)
--- NOTE | 2016-09-16 15:38 | HHI.NSPN ---
(Chikis Anne) Note Status Status: Progress Note (Chikis Anne) Interval History Interval History This is a 56-year-old right-handed male. He has history of prior CVA 2008 in 2017, hypertension, dyslipidemia, diabetes mellitus, gastroesophageal reflux disease, obstructive sleep apnea. He presented with increasing confusion, left facial droop subjectively the left upper extremity/sensation. According to his daughter, he is more confused than his baseline.. Upon arrival, patient had imaging the brain from which revealed a left basal ganglia bleed.without significant mass effect or midline shift. He was hypertensive with systolic in the 180s. He is currently on a Cleviprex drip to maintain systolic blood pressure less than 150.. Noted left facial droop, left pronator drift and decreased sensation to left upper extremity. Neurosurgical consultation was requested 09/16: doing well, neuro stable overnight. f/u CT Head yesterday was stable. ( Chikis Anne) Labs, Micro, & Vital Signs Results Date Time Temp Pulse Resp B/P Pulse Ox O2 Delivery O2 Flow Rate FiO2 09/16/16 14:00 92 09/16/16 12:00 98.6 88 18 144/89 98 09/16/16 12:00 92 09/16/16 10:00 88 09/16/16 09:01 96 21 09/16/16 08:00 98.6 76 19 145/80 95 09/16/16 08:00 76 09/16/16 07:00 96 Room Air 09/16/16 06:00 92 09/16/16 04:00 92 09/16/16 04:00 98.5 85 21 156/76 96 09/16/16 02:00 92 09/16/16 00:00 97 09/16/16 00:00 98.5 84 21 152/85 96 09/15/16 22:00 92 09/15/16 20:00 98.5 98 21 163/83 96 09/15/16 20:00 88 09/15/16 19:00 96 Room Air 09/15/16 18:00 87 09/15/16 16:00 98.1 95 16 139/71 96 09/15/16 16:00 95 09/16/16 07:00 Intake Total 2256 ml Output Total 2700 ml Balance -444 ml Constitutional Vital Signs Date Time Temp Pulse Resp B/P Pulse Ox O2 Delivery O2 Flow Rate FiO2 09/16/16 14:00 92 09/16/16 12:00 98.6 88 18 144/89 98 09/16/16 12:00 92 09/16/16 10:00 88 09/16/16 09:01 96 21 09/16/16 08:00 98.6 76 19 145/80 95 09/16/16 08:00 76 09/16/16 07:00 96 Room Air 09/16/16 06:00 92 09/16/16 04:00 92 09/16/16 04:00 98.5 85 21 156/76 96 09/16/16 02:00 92 09/16/16 00:00 97 09/16/16 00:00 98.5 84 21 152/85 96 09/15/16 22:00 92 09/15/16 20:00 98.5 98 21 163/83 96 09/15/16 20:00 88 09/15/16 19:00 96 Room Air 09/15/16 18:00 87 09/15/16 16:00 98.1 95 16 139/71 96 09/15/16 16:00 95 09/16/16 07:00 Intake Total 2256 ml Output Total 2700 ml Balance -444 ml (Chikis Anne) Review of Systems/Exam Exam Mr. Murphy is alert, in no apparent distress. Cranial nerve examination: pupils equal, round, and reactive to light. Neck is soft and supple. Muscle strength: moves all four extremities grossly symmetrically b/l. Plantar flexors b/l. Hoffmanns sign is negative. Cerebellar examination is intact to [id number] test, rapid rhythmic alternating motion. (Chikis Anne) Exam Mr. Murphy is alert, in no apparent distress. Cranial nerve examination: pupils equal, round, and reactive to light. Neck is soft and supple. Muscle strength: moves all four extremities grossly symmetrically b/l. Plantar flexors b/l. Hoffmanns sign is negative. Cerebellar examination is intact to [id number] test (Biju Low MD) Medications Current Medications Current Medications Medications (Trade) Dose Ordered Sig/Marcos Route PRN Reason Start Time Stop Time Status Last Admin Dose Admin Clevidipine (Cleviprex Inj) 50 ml @ 0 mls/hr TITRATE IV 09/14/16 23:30 09/16/16 15:17 Atorvastatin Calcium (Lipitor) 80 mg HS PO 09/15/16 21:00 09/15/16 20:00 Carvedilol (Coreg) 6.25 mg BID PO 09/15/16 09:00 09/16/16 09:32 Levothyroxine Sodium (Synthroid) 75 mcg DAILY@07 PO 09/15/16 07:00 09/16/16 07:00 Losartan Potassium (Cozaar) 100 mg DAILY PO 09/15/16 09:00 09/16/16 09:32 Tolterodine Tartrate 4 mg 4 mg DAILY PO Overactive Bladder 09/15/16 09:00 09/16/16 09:32 Sodium Chloride (NS 1000 ml Inj) 1,000 ml @ 84 mls/hr [id number] IV 09/15/16 00:45 09/16/16 11:32 Sodium Chloride (NS Flush) 2 ml UNSCH PRN IV FLUSH FLUSH AFTER USING IV ACCESS 09/15/16 00:45 Sodium Chloride (NS Flush) 2 ml BID IV FLUSH 09/15/16 09:00 09/16/16 09:00 Acetaminophen (Tylenol) 650 mg Q6H PRN PO PAIN 1-10 AND/OR FEVER >101F 09/15/16 00:45 Acetaminophen/ Hydrocodone Bitart (Elizabeth 5-325 Mg) 1 tab Q4H PRN PO PAIN SCALE 1 TO 5 09/15/16 00:45 Morphine Sulfate (Morphine Inj) 2 mg Q2H PRN IV PAIN SCALE 6 TO 10 09/15/16 00:45 Pantoprazole Sodium (Protonix Inj) 40 mg DAILY IV 09/15/16 09:00 09/16/16 09:33 Ondansetron HCl (Zofran Inj) 4 mg Q6H PRN IV NAUSEA OR VOMITING 09/15/16 00:45 Miscellaneous Information 1 Q361D XX 09/15/16 00:45 Chlorhexidine Gluconate (Chlorhexidine 2% Cloth) 3 pack Taper DAILY@04 TOP 09/15/16 04:00 09/11/17 03:59 09/16/16 04:00 Chlorhexidine Gluconate (Chlorhexidine 2% Cloth) 3 pack UNSCH PRN TOP HYGIENIC CARE 09/15/16 00:45 Senna/Docusate Sodium (Bela-Colace) 1 tab BID PO 09/15/16 09:00 09/16/16 09:32 Magnesium Hydroxide (Milk Of Magnesia Liq) 30 ml Q12H PRN PO MILD - MODERATE CONSTIPATION 09/15/16 00:45 Sennosides (Senokot) 17.2 mg Q12H PRN PO MODERATE - SEVERE CONSTIPATION 09/15/16 00:45 Bisacodyl (Dulcolax Supp) 10 mg DAILY PRN RECTAL SEVERE CONSITIPATION 09/15/16 00:45 Lactulose (Lactulose Liq) 30 ml DAILY PRN PO SEVERE CONSITIPATION 09/15/16 00:45 Dextrose (D50w (Vial) Inj) 50 ml UNSCH PRN IV HYPOGLYCEMIA-SEE COMMENTS 09/15/16 00:45 Glucagon (Glucagon Inj) 1 mg UNSCH PRN OTHER HYPOGLYCEMIA-SEE COMMENTS 09/15/16 00:45 Labetalol HCl (Trandate Inj) 10 mg Q4H PRN IV SPB > 160, HR > 65 09/15/16 01:00 Hydralazine HCl (Apresoline Inj) 10 mg Q3H PRN IV PUSH SBP > 160 09/16/16 12:15 (Chikis Anne) Medical Decision Making MDM Remarks 56 y/o male with small left basal ganglia hemorrhage (Chikis Anne) Plan Plan Remarks cont nonsurgical management cont serial neuro checks nonchemical dvt prophylaxis in view of ICH, dw , Neurology consultation for recurrent stroke (Chikis Anne) Attending Statement Intracranial bleed, Continue neuro checks in a serial fashion. Multiple strokes HTN. Cont to Treat with antihypertensives as needed Pulmonary. aggressive pulmonary toilette, nasotracheal suction, and breathing treatments with nebulizers. PT and OT evaluation Nutrition. NPO Renal. monitor closely urine output, BUN and creatinine Endocrine. Monitor serial Acu checks and SSI as needed in detail ID monitor for signs of infection Hyperlipidemia Continue Atorvastatin Hypothyroidism Check TSH level Protonix for stress ulcer prophylaxis Luke hose and SCD's for DVT prophylaxis (Biju Low MD) Chikis Anne Sep 16, 2016 15:38 Biju Low MD Sep 20, 2016 00:43
--- NOTE | 2016-09-16 17:08 | RADRPT ---
EXAM DATE/TIME: 09/16/2016 15:51 [facility] COMPARISON: No previous studies available for comparison. INDICATIONS : Left sided weakness. History of prior strokes. CONTRAST: 20 cc Omniscan (gadodiamide) IV MEDICAL HISTORY : Cerebrovascular disease. Hypertension. SURGICAL HISTORY : Left knee meniscus repair. ENCOUNTER: Subsequent ACUITY: 4-6 days PAIN SCORE: 0/10 LOCATION: head. TECHNIQUE: Multiplanar, multisequence MRI of the brain was performed both prior to and following the administrat ion of paramagnetic contrast. FINDINGS: There is a focal area of restricted diffusion in the high right centrum semiovale measuring approxima tely 1 cm. This is associated with some periventricular white matter changes. Scattered lacunar typ e infarcts are seen the basalganglia on the right. The periventricular white matter changes extend into the posterior fossa There are no extra-axial fluid collections appreciated. There is no minimal lenticulostriate type hemosiderin deposition in the deep left basalganglia. Ther e is no abnormal contrast enhancement. CONCLUSION: Central and cortical atrophy with periventricular white matter changes. Focal 1 cm area of restricte d diffusion high right centrum semiovale. Chronic hemosiderin changes basalganglia on the left. The re is no contrast enhancement. Aly Smiley MD FACR on September 16, 2016 at 17:03 Board Certified Radiologist. This report was verified electronically.
--- NOTE | 2016-09-16 17:11 | RADRPT ---
EXAM DATE/TIME: 09/16/2016 15:51 [facility] COMPARISON: No previous studies available for comparison. INDICATIONS : Left sided weakness. History of prior strokes. MEDICAL HISTORY : Cerebrovascular disease. Hypertension. SURGICAL HISTORY : Meniscus repair left knee. ENCOUNTER: Subsequent ACUITY: 4-6 days PAIN SCORE: 0/10 LOCATION: head. Please note a normal MRA of the brain does not entirely exclude the possibility of a small aneurysm, nor the possibility of distal intracranial vessel disease. TECHNIQUE: 3D time of flight MRA was performed. Source images, multiplanar STS MIP, and 3D volume MIP reconstru ctions were reviewed. FINDINGS: There is excellent visualization of the major intracranial arteries out to the second-order branch ve ssels. There is no evidence for aneurysm, vessel truncation or stenosis, and no evidence for vascula r malformation. origin of the right posterior cerebral artery. CONCLUSION: No acute absentee-[place] of [place] vascular findings Arben King MD on September 16, 2016 at 17:07 Board Certified Radiologist. This report was verified electronically.
--- NOTE | 2016-09-16 17:27 | RADRPT ---
EXAM DATE/TIME: 09/16/2016 15:51 [facility] COMPARISON: No previous studies available for comparison. INDICATIONS : Stenosis. Left sided weakness. CONTRAST: 20 cc Omniscan (gadodiamide) IV MEDICAL HISTORY : Cerebrovascular disease. Hypertension. SURGICAL HISTORY : Left knee meniscus repair. ENCOUNTER: Subsequent ACUITY: 4-6 days PAIN SCORE: 0/10 LOCATION: neck. Percent stenosis is calculated using the diameter of the stenotic region over the diameter of the nor mal distal internal carotid artery. TECHNIQUE: Bolus infused MRA of the extracranial circulation was performed using a neurovascular coil. Post pro cessing was performed including rotating subvolume maximum intensity projections of each carotid chico ry, rotating full volume maximum intensity projections of both carotid arteries, sagittal and coronal sliding thin slab reformations of each carotid artery, and left oblique sliding thin slab reformatio n through the aortic arch to include the origin of the arch branch vessels. FINDINGS: AORTIC ARCH: There is a three vessel origin of the great vessels from the aorta. No evidence of ostial narrowing. RIGHT CAROTID: The common carotid artery is intact. The carotid bulb has a normal configuration without ulceration or narrowing. The internal carotid artery lumen is smooth without stenosis. The external carotid ar nae is intact. LEFT CAROTID: The common carotid artery is intact. The carotid bulb has a normal configuration without ulceration or narrowing. The internal carotid artery lumen is smooth without stenosis. The external carotid ar nae is intact. VERTEBRALS: The vertebral arteries have a symmetric diameter. No stenotic lesions are seen. CONCLUSION: Normal examination. Arben King MD on September 16, 2016 at 17:09 Board Certified Radiologist. This report was verified electronically.
[2016-09-16] MEDS ORDERED: GADODIAMIDE PF 287 MG/ML 20 ML VIAL (for RAD MRI) IV ONE (17:57)
[2016-09-16] MEDS: ATORVASTATIN 80 MG TAB PO SCH (20:24)
[2016-09-16 21:44] LABS: FREE T4 1.02 NG/DL (0.76-1.46); HDL CHOLESTEROL 33.1 MG/DL (40.0-60.0); LDL CHOLESTEROL 68 MG/DL (0-99)
[2016-09-17] VITALS (14 sets, daily range): BP systolic 133–157; BP diastolic 74–78; PULSE 84–97; RESP 8–18; TEMP 97.8–98.5; O2SAT 96–100
[2016-09-17] MEDS: SODIUM CHLOR 0.9% 1000 ML INJ 1,000 ML IV SCH ×2 (00:13→12:20)
[2016-09-17] MEDS: CLEVIDIPINE INJ 50 ML IV SCH ×3 (00:14→11:32)
[2016-09-17 00:44] LABS: RHEUMATOID FACTOR TRIGGER LESS THAN 10.0 IU/ML (0.0-14.9)
[2016-09-17] MEDS: CHLORHEXIDINE GLUCONATE 2 % 1 PACK (2 CLOTHS) TOP SCH (04:00)
--- NOTE | 2016-09-17 08:14 | HHI.PR ---
Subjective Remarks sr Objective Vital Signs Date Time Temp Pulse Resp B/P Pulse Ox O2 Delivery O2 Flow Rate FiO2 09/17/16 06:00 97 09/17/16 04:00 98.4 95 15 157/78 96 09/17/16 04:00 95 09/17/16 02:00 84 09/17/16 00:00 98.2 86 14 139/75 98 09/17/16 00:00 86 09/16/16 22:00 98 09/16/16 20:00 98.5 98 20 153/84 97 09/16/16 20:00 98 09/16/16 19:58 95 21 09/16/16 19:00 95 Room Air 09/16/16 18:00 94 09/16/16 16:00 98.5 84 17 156/87 99 09/16/16 16:00 99 09/16/16 14:00 92 09/16/16 12:00 98.6 88 18 144/89 98 09/16/16 12:00 92 09/16/16 10:00 88 09/16/16 09:01 96 21 I/O 09/16/16 09/16/16 09/16/16 09/17/16 09/17/16 09/17/16 07:00 15:00 23:00 07:00 15:00 23:00 Intake Total 667 ml 905 ml 683 ml 796 ml Output Total 1600 ml 400 ml 1350 ml 450 ml Balance -933 ml 505 ml -667 ml 346 ml Intake Oral 240 ml 200 ml 200 ml 100 ml IV Total 427 ml 705 ml 483 ml 696 ml Output Urine Total 1600 ml 400 ml 1350 ml 450 ml # Bowel Movements 0 0 0 Result Diagram: 09/16/16 0353 09/16/16 0353 Objective Remarks alert c vff 07/24 Assessment and Plan Assessment and Plan imp now another acute r mca cortical infarct and similar in 05/08 i reviewed notes [facility] neg marylou and acc to neg two week holter mult deep and cortical cva i think the left deep ich is a hemorrhagic infarct from the asa and plavix he probably had a silent cva small left in last one month as not present [facility] he needs coumadin and i think considering the blood on ct we should wait a week to start i dw check mrv and hyper screen ok to floor ok to run bp 120-160 oob Pio Burgess MD Sep 17, 2016 08:14
[2016-09-17] MEDS: INSULIN NovoLIN REGULAR SUPPLEMENTAL SCALE SQ SCH ×4 (08:30→21:00)
[2016-09-17] MEDS: CARVEDILOL 6.25 MG TAB PO SCH ×2 (08:39→21:14)
[2016-09-17] MEDS: LEVOTHYROXINE SODIUM 75 MCG TAB PO SCH (08:39)
[2016-09-17] MEDS: DOCUSATE SODIUM 50 MG/SENNA 8.6 MG TAB PO SCH ×2 (08:39→21:15)
[2016-09-17] MEDS: LOSARTAN 50 MG TAB PO SCH (08:39)
[2016-09-17] MEDS: PANTOPRAZOLE SODIUM 40 MG VIAL IV SCH (08:40)
[2016-09-17] MEDS: TOLTERODINE TARTRATE 4 MG CAP LA PO SCH (09:00)
[2016-09-17] MEDS: SODIUM CHLORIDE 0.9% FLUSH 10 ML FLUSH IV FLUSH SCH ×2 (09:00→21:13)
[2016-09-17 09:33] LABS: RAPID PLASMA REAGIN SCREEN NON-REACTIVE (NON-REACTVE)
[2016-09-17] MEDS ORDERED: GADODIAMIDE PF 287 MG/ML 20 ML VIAL (for RAD MRI) IV ONE (13:29)
--- NOTE | 2016-09-17 16:15 | HHI.PR ---
Subjective Remarks Follow-up for intracranial bleed Patient is a poor story and but has no complaints. Per patient's he is at his baseline in terms of his mental status, but is a little more fatigued today. Patient able to move bilateral lower extremities without any difficulty. His has a lot of questions on diagnosis and management. Otherwise she has no complaints. Objective Vitals Vital Signs Date Time Temp Pulse Resp B/P Pulse Ox O2 Delivery O2 Flow Rate FiO2 09/17/16 14:00 92 09/17/16 12:00 98.4 86 16 146/76 97 09/17/16 12:00 86 09/17/16 10:00 86 09/17/16 08:24 97 21 09/17/16 08:00 98.4 90 8 140/74 100 09/17/16 08:00 90 09/17/16 07:00 96 Room Air 09/17/16 06:00 97 09/17/16 04:00 98.4 95 15 157/78 96 09/17/16 04:00 95 09/17/16 02:00 84 09/17/16 00:00 98.2 86 14 139/75 98 09/17/16 00:00 86 09/16/16 22:00 98 09/16/16 20:00 98.5 98 20 153/84 97 09/16/16 20:00 98 09/16/16 19:58 95 21 09/16/16 19:00 95 Room Air 09/16/16 18:00 94 I/O 09/16/16 09/16/16 09/16/16 09/17/16 09/17/16 09/17/16 07:00 15:00 23:00 07:00 15:00 23:00 Intake Total 667 ml 905 ml 683 ml 796 ml 885 ml Output Total 1600 ml 400 ml 1350 ml 450 ml 1200 ml Balance -933 ml 505 ml -667 ml 346 ml -315 ml Intake Oral 240 ml 200 ml 200 ml 100 ml 200 ml IV Total 427 ml 705 ml 483 ml 696 ml 685 ml Output Urine Total 1600 ml 400 ml 1350 ml 450 ml 1200 ml # Bowel Movements 0 0 0 0 Result Diagram: 09/16/16 0353 09/16/16 035 Objective Remarks GENERAL: in NAD SKIN: Warm and dry. HEAD: Normocephalic. EYES: No scleral icterus. No injection or drainage. NECK: Supple, trachea midline. No JVD or lymphadenopathy. CARDIOVASCULAR: Regular rate and rhythm without murmurs, gallops, or rubs. RESPIRATORY: Breath sounds equal bilaterally. No accessory muscle use. GASTROINTESTINAL: Abdomen soft, non-tender, nondistended. MUSCULOSKELETAL: No cyanosis, or edema. NEURO: AAO x2. Patient able to give me his last name and then he spells out his first name. He is able to me is in the hospital. Could not tell me that year or month. Patient grossly moves his upper and lower extremity. Medications and IVs Current Medications Sodium Chloride (NS Flush) 2 ml UNSCH PRN IVF FLUSH AFTER USING IV ACCESS; Start 09/14/16 at 22:30; Stop 09/15/16 at 00:58; Status DC Labetalol HCl 20 mg 20 mg ONCE ONCE IV PUSH Last administered on 09/14/16 23: 31; Start 09/14/16 at 23:15; Stop 09/14/16 at 23:16; Status DC Clevidipine (Cleviprex Inj) 50 ml @ 0 mls/hr TITRATE IV Last administered on 11:32; Start 09/14/16 at 23:30 Atorvastatin Calcium (Lipitor) 80 mg HS PO Last administered on 09/16/16 20:24 ; Start 09/15/16 at 21:00 Carvedilol (Coreg) 6.25 mg BID PO Last administered on 09/17/16 08:39; Start 09/15/16 at 09:00 Levothyroxine Sodium (Synthroid) 75 mcg DAILY@07 PO Last administered on 08:39; Start 09/15/16 at 07:00 Losartan Potassium (Cozaar) 100 mg DAILY PO Last administered on 09/17/16 08: 39; Start 09/15/16 at 09:00 Tolterodine Tartrate 4 mg 4 mg DAILY PO Overactive Bladder Last administered on 09/17/16 09:00; Start 09/15/16 at 09:00 Sodium Chloride (NS 1000 ml Inj) 1,000 ml @ 84 mls/hr [id number] IV Last administered on 09/17/16 12:20; Start 09/15/16 at 00:45 Sodium Chloride (NS Flush) 2 ml UNSCH PRN IV FLUSH FLUSH AFTER USING IV ACCESS ; Start 09/15/16 at 00:45 Sodium Chloride (NS Flush) 2 ml BID IV FLUSH Last administered on 09/17/16 09: 00; Start 09/15/16 at 09:00 Acetaminophen (Tylenol) 650 mg Q6H PRN PO PAIN 1-10 AND/OR FEVER >101F; Start 09/15/16 at 00:45 Acetaminophen/ Hydrocodone Bitart (Carlock 5-325 Mg) 1 tab Q4H PRN PO PAIN SCALE 1 TO 5; Start 09/15/16 at 00:45 Morphine Sulfate (Morphine Inj) 2 mg Q2H PRN IV PAIN SCALE 6 TO 10; Start 09/15 at 00:45 Pantoprazole Sodium (Protonix Inj) 40 mg DAILY IV Last administered on 08:40; Start 09/15/16 at 09:00 Ondansetron HCl (Zofran Inj) 4 mg Q6H PRN IV NAUSEA OR VOMITING; Start at 00:45 Albuterol Sulfate (Albuterol Neb) 2.5 mg Q2HR NEB PRN INH SOB/WHEEZING; Start 09/15/16 at 00:45 Miscellaneous Information 1 Q361D XX ; Start 09/15/16 at 00:45 Chlorhexidine Gluconate (Chlorhexidine 2% Cloth) 3 pack Taper DAILY@04 TOP Last administered on 09/17/16 04:00; Start 09/15/16 at 04:00; Stop 09/11/17 at 03:59 Chlorhexidine Gluconate (Chlorhexidine 2% Cloth) 3 pack UNSCH PRN TOP HYGIENIC CARE; Start 09/15/16 at 00:45 Senna/Docusate Sodium (Bela-Colace) 1 tab BID PO Last administered on 08:39; Start 09/15/16 at 09:00 Magnesium Hydroxide (Milk Of Magnesia Liq) 30 ml Q12H PRN PO MILD - MODERATE CONSTIPATION; Start 09/15/16 at 00:45 Sennosides (Senokot) 17.2 mg Q12H PRN PO MODERATE - SEVERE CONSTIPATION; Start 09/15/16 at 00:45 Bisacodyl (Dulcolax Supp) 10 mg DAILY PRN RECTAL SEVERE CONSITIPATION; Start at 00:45 Lactulose (Lactulose Liq) 30 ml DAILY PRN PO SEVERE CONSITIPATION; Start at 00:45 Dextrose (D50w (Vial) Inj) 50 ml UNSCH PRN IV HYPOGLYCEMIA-SEE COMMENTS; Start 09/15/16 at 00:45 Glucagon (Glucagon Inj) 1 mg UNSCH PRN OTHER HYPOGLYCEMIA-SEE COMMENTS; Start 09/15/16 at 00:45 Insulin Human Regular (NovoLIN R SUPPLEMENTAL SCALE) 1 ACHS SLIDING SCALE SQ Last administered on 09/17/16 11:00; Start 09/15/16 at 07:00 Labetalol HCl (Trandate Inj) 10 mg Q4H PRN IV SPB > 160, HR > 65; Start at 01:00 Hydralazine HCl (Apresoline Inj) 10 mg Q3H PRN IV PUSH SBP > 160; Start at 12:15 Gadodiamide (Omniscan Pf Inj) 20 ml STK-MED ONCE IV Last administered on 17:57; Start 09/16/16 at 17:57; Stop 09/16/16 at 17:58; Status DC Gadodiamide (Omniscan Pf Inj) 20 ml STK-MED ONCE IV Last administered on 13:29; Start 09/17/16 at 13:29; Stop 09/17/16 at 13:30; Status DC A/P Problem List: (1) Nontraumatic thalamic hemorrhage ICD Code: I61.9 Status: Acute (2) Hypertension ICD Code: I10 Status: Acute (3) Dyslipidemia ICD Code: E78.5 Status: Acute (4) Diabetes mellitus ICD Code: E11.9 Status: Acute (5) FRANCHESKA (obstructive sleep apnea) ICD Code: G47.33 Status: Acute (6) Gastroesophageal reflux disease ICD Code: K21.9 Status: Acute (7) Hypothyroidism ICD Code: E03.9 Status: Acute (8) Acute kidney injury ICD Code: N17.9 Status: Acute (9) History of CVA (cerebrovascular accident) ICD Code: Z86.73 Status: Acute Assessment and Plan Left superior anterior thalamic CVA History CVA with old supratentorial CV is noted Acute right MCA cortical infarct -neg GABY and two week holter neg -Per neurologist he thinks that the hemorrhagic infarct was from the aspirin and Plavix and that he probably had a silent CVA small left in the last 1 month that was not present at the other hospital. -Neurologist recommends Coumadin and to wait 1 week before starting medication. -MRV and hypocoagulable screening ordered by Dr. Burgess. -Per neurologist jenae for blood pressure to run 120-160. -PT/OT/ST following Hypertension/Dyslipidemia/FRANCHESKA/GERD/urinary incontinence/hypothyroidism/diabetes On losartan 100 mg daily and Coreg 6.25 mg twice a day at home for hypertension. Continue Cleviprex drip/labetalol 10 mg every hour when necessary to maintain systolic blood pressure less than 150 On Crestor 80 mg at night for dyslipidemia. Hold Plavix Continue oxybutynin 10 mg by mouth daily. Continue Levoxyl 75 mg by mouth daily. Check TSH Hold metformin/glipizide 1000/5 one tablet twice a day. Sliding scale insulin Accu-Cheks to maintain euglycemia/low regimen Prophylaxis - GI - Protonix - DVT - SCD/from) prophylaxis contra indicated status post bleed Discharge Planning Patient stable to transfer to neuro floor. All questions answered for patient's with satisfaction in regards to diagnosis and management. Problem Qualifiers (1) Hypertension: Qualified Code: I10 - Essential hypertension (2) Diabetes mellitus: Qualified Code: E11.8 - Type 2 diabetes mellitus with complication, without long-term current use of insulin (3) Gastroesophageal reflux disease: Qualified Code: K21.9 - Gastroesophageal reflux disease, esophagitis presence not specified (4) Hypothyroidism: Qualified Code: E03.9 - Hypothyroidism, unspecified type Anisa Rodríguez MD Sep 17, 2016 16:15 Continue Levoxyl 75 mg by mouth daily. Check TSH Hold metformin/glipizide 1000/5 one tablet twice a day. Sliding scale insulin Accu-Cheks to maintain euglycemia/low regimen Renal: Monitor urine output closely Accurate I's and O's Heme: CBC within normal limits Monitor coags ID: Currently no indication for antibiotic therapy. Monitor fever/sensitivities infection FEN: Replace electrolytes as clinically indicated MSK: PT/OT evaluate and treat Access - Utilize peripheral IV. Central line if indicated Prophylaxis - GI - Protonix - DVT - SCD/from) prophylaxis contra indicated status post bleed Problem Qualifiers (1) Hypertension: Qualified Code: I10 - Essential hypertension (2) Diabetes mellitus: Qualified Code: E11.8 - Type 2 diabetes mellitus with complication, without long-term current use of insulin (3) Gastroesophageal reflux disease: Qualified Code: K21.9 - Gastroesophageal reflux disease, esophagitis presence not specified (4) Hypothyroidism: Qualified Code: E03.9 - Hypothyroidism, unspecified type Anisa Rodríguez MD Sep 17, 2016 16:15
--- NOTE | 2016-09-17 16:51 | RADRPT ---
EXAM DATE/TIME: 09/17/2016 12:37 COMPARISON: No previous studies available for comparison. INDICATIONS : CVA. CONTRAST: 20 cc Omniscan (gadodiamide) IV GFR: 103 Date: September 16 2016 MEDICAL HISTORY : Stroke SURGICAL HISTORY : Left knee meniscus repair. ENCOUNTER: Initial ACUITY: 2 day PAIN SCORE: 0/10 LOCATION: Head. FINDINGS: The dural venous sinuses are patent throughout. The deep cerebral venous structures are patent and un remarkable. Major cortical surfaces veins are symmetric and intact CONCLUSION: Negative Arben King MD on September 17, 2016 at 16:47 Board Certified Radiologist. This report was verified electronically.
--- NOTE | 2016-09-17 17:12 | HHI.NSPN ---
(Chikis Anne) Note Status Status: Progress Note (Chikis Anne) Interval History Interval History This is a 56-year-old right-handed male. He has history of prior CVA 2008 in 2017, hypertension, dyslipidemia, diabetes mellitus, gastroesophageal reflux disease, obstructive sleep apnea. He presented with increasing confusion, left facial droop subjectively the left upper extremity/sensation. According to his daughter, he is more confused than his baseline.. Upon arrival, patient had imaging the brain from which revealed a left basal ganglia bleed.without significant mass effect or midline shift. He was hypertensive with systolic in the 180s. He is currently on a Cleviprex drip to maintain systolic blood pressure less than 150.. Noted left facial droop, left pronator drift and decreased sensation to left upper extremity. Neurosurgical consultation was requested 09/16: doing well, neuro stable overnight. f/u CT Head yesterday was stable. 09/17: sitting up in chair eating breakfast. MRI Brain shows multiple strokes, Neurology work up (Chikis Anne) Labs, Micro, & Vital Signs Results Date Time Temp Pulse Resp B/P Pulse Ox O2 Delivery O2 Flow Rate FiO2 09/17/16 16:00 90 09/17/16 16:00 97.8 90 18 133/76 98 09/17/16 14:00 92 09/17/16 12:00 98.4 86 16 146/76 97 09/17/16 12:00 86 09/17/16 10:00 86 09/17/16 08:24 97 21 09/17/16 08:00 98.4 90 8 140/74 100 09/17/16 08:00 90 09/17/16 07:00 96 Room Air 09/17/16 06:00 97 09/17/16 04:00 98.4 95 15 157/78 96 09/17/16 04:00 95 09/17/16 02:00 84 09/17/16 00:00 98.2 86 14 139/75 98 09/17/16 00:00 86 09/16/16 22:00 98 09/16/16 20:00 98.5 98 20 153/84 97 09/16/16 20:00 98 09/16/16 19:58 95 21 09/16/16 19:00 95 Room Air 09/16/16 18:00 94 09/17/16 07:00 Intake Total 2384 ml Output Total 2200 ml Balance 184 ml Constitutional Vital Signs Date Time Temp Pulse Resp B/P Pulse Ox O2 Delivery O2 Flow Rate FiO2 09/17/16 16:00 90 09/17/16 16:00 97.8 90 18 133/76 98 09/17/16 14:00 92 09/17/16 12:00 98.4 86 16 146/76 97 09/17/16 12:00 86 09/17/16 10:00 86 09/17/16 08:24 97 21 09/17/16 08:00 98.4 90 8 140/74 100 09/17/16 08:00 90 09/17/16 07:00 96 Room Air 09/17/16 06:00 97 09/17/16 04:00 98.4 95 15 157/78 96 09/17/16 04:00 95 09/17/16 02:00 84 09/17/16 00:00 98.2 86 14 139/75 98 09/17/16 00:00 86 09/16/16 22:00 98 09/16/16 20:00 98.5 98 20 153/84 97 09/16/16 20:00 98 09/16/16 19:58 95 21 09/16/16 19:00 95 Room Air 09/16/16 18:00 94 09/17/16 07:00 Intake Total 2384 ml Output Total 2200 ml Balance 184 ml (Chikis Anne) Review of Systems/Exam Exam Mr. Murphy is alert, conversing. Sitting up in chair eating breakfast. Cranial nerve examination: pupils equal, round, and reactive to light. Facial motor appears symmetric. Neck is soft and supple. Muscle strength: moves all four extremities grossly symmetrically b/l. Plantar flexors b/l. Hoffmanns sign is negative. (Chikis Anne) Medications Current Medications Current Medications Medications (Trade) Dose Ordered Sig/Marcos Route PRN Reason Start Time Stop Time Status Last Admin Dose Admin Clevidipine (Cleviprex Inj) 50 ml @ 0 mls/hr TITRATE IV 09/14/16 23:30 09/17/16 11:32 Atorvastatin Calcium (Lipitor) 80 mg HS PO 09/15/16 21:00 09/16/16 20:24 Carvedilol (Coreg) 6.25 mg BID PO 09/15/16 09:00 09/17/16 08:39 Levothyroxine Sodium (Synthroid) 75 mcg DAILY@07 PO 09/15/16 07:00 09/17/16 08:39 Losartan Potassium (Cozaar) 100 mg DAILY PO 09/15/16 09:00 09/17/16 08:39 Tolterodine Tartrate 4 mg 4 mg DAILY PO Overactive Bladder 09/15/16 09:00 09/17/16 09:00 Sodium Chloride (NS 1000 ml Inj) 1,000 ml @ 84 mls/hr [id number] IV 09/15/16 00:45 09/17/16 12:20 Sodium Chloride (NS Flush) 2 ml UNSCH PRN IV FLUSH FLUSH AFTER USING IV ACCESS 09/15/16 00:45 Sodium Chloride (NS Flush) 2 ml BID IV FLUSH 09/15/16 09:00 09/17/16 09:00 Acetaminophen (Tylenol) 650 mg Q6H PRN PO PAIN 1-10 AND/OR FEVER >101F 09/15/16 00:45 Acetaminophen/ Hydrocodone Bitart ([place] 5-325 Mg) 1 tab Q4H PRN PO PAIN SCALE 1 TO 5 09/15/16 00:45 Morphine Sulfate (Morphine Inj) 2 mg Q2H PRN IV PAIN SCALE 6 TO 10 09/15/16 00:45 Pantoprazole Sodium (Protonix Inj) 40 mg DAILY IV 09/15/16 09:00 09/17/16 08:40 Ondansetron HCl (Zofran Inj) 4 mg Q6H PRN IV NAUSEA OR VOMITING 09/15/16 00:45 Miscellaneous Information 1 Q361D XX 09/15/16 00:45 Chlorhexidine Gluconate (Chlorhexidine 2% Cloth) 3 pack Taper DAILY@04 TOP 09/15/16 04:00 09/11/17 03:59 09/17/16 04:00 Chlorhexidine Gluconate (Chlorhexidine 2% Cloth) 3 pack UNSCH PRN TOP HYGIENIC CARE 09/15/16 00:45 Senna/Docusate Sodium (Bela-Colace) 1 tab BID PO 09/15/16 09:00 09/17/16 08:39 Magnesium Hydroxide (Milk Of Magnesia Liq) 30 ml Q12H PRN PO MILD - MODERATE CONSTIPATION 09/15/16 00:45 Sennosides (Senokot) 17.2 mg Q12H PRN PO MODERATE - SEVERE CONSTIPATION 09/15/16 00:45 Bisacodyl (Dulcolax Supp) 10 mg DAILY PRN RECTAL SEVERE CONSITIPATION 09/15/16 00:45 Lactulose (Lactulose Liq) 30 ml DAILY PRN PO SEVERE CONSITIPATION 09/15/16 00:45 Dextrose (D50w (Vial) Inj) 50 ml UNSCH PRN IV HYPOGLYCEMIA-SEE COMMENTS 09/15/16 00:45 Glucagon (Glucagon Inj) 1 mg UNSCH PRN OTHER HYPOGLYCEMIA-SEE COMMENTS 09/15/16 00:45 Labetalol HCl (Trandate Inj) 10 mg Q4H PRN IV SPB > 160, HR > 65 09/15/16 01:00 Hydralazine HCl (Apresoline Inj) 10 mg Q3H PRN IV PUSH SBP > 160 09/16/16 12:15 (Chikis Anne) Medical Decision Making MDM Remarks 56 y/o male with small left basal ganglia hemorrhage, stable, nonoperative multiple CVA on MRI Brain (Chikis Anne) Plan Plan Remarks cont nonsurgical management of ICH, cont stroke work up with defer to Neurology for stroke management cont serial neuro checks PT, OT discussed with and patient (Chikis Anne) Attending Statement Intracranial bleed, Continue neuro checks in a serial fashion. Multiple strokes HTN. Cont to Treat with antihypertensives as needed Pulmonary. aggressive pulmonary toilette, nasotracheal suction, and breathing treatments with nebulizers. PT and OT evaluation Nutrition. NPO Renal. monitor closely urine output, BUN and creatinine Endocrine. Monitor serial Acu checks and SSI as needed in detail ID monitor for signs of infection Hyperlipidemia Continue Atorvastatin Hypothyroidism Check TSH level Protonix for stress ulcer prophylaxis Luke hose and SCD's for DVT prophylaxis (Biju Low MD) Chikis Anne Sep 17, 2016 17:11 Biju Low MD Sep 20, 2016 00:42 Biju Low MD Sep 20, 2016 00:42
--- NOTE | 2016-09-17 17:21 | ECHRPT ---
Indication: CVA/TIA CONCLUSIONS The left ventricular systolic function is probably normal with an estimated ejection fraction in the range of 55-60%. BP: 156 / 76 HR: 92 Rhythm: Sinus MEASUREMENTS (Male / Female) Normal Values Technical Quality:Good 2D ECHO LV Diastolic Diameter PLAX 3.7 cm 4.2 - 5.9 / 3.9 - 5.3 cm LV Systolic Diameter PLAX 3.0 cm IVS Diastolic Thickness 0.9 cm 0.6 - 1.0 / 0.6 - 0.9 cm LVPW Diastolic Thickness 0.9 cm 0.6 - 1.0 / 0.6 - 0.9 cm LV Relative Wall Thickness 0.5 RV Internal Dim ED PLAX 1.3 cm LVOT Diameter 2.0 cm LA Systolic Diameter LX 2.5 cm 3.0 - 4.0 / 2.7 - 3.8 cm M-MODE Aortic Root Diameter MM 2.9 cm AV Cusp Separation MM 1.9 cm DOPPLER AV Peak Velocity 104.5 cm/s AV Peak Gradient 4.4 mmHg LVOT Peak Velocity 80.0 cm/s LVOT Peak Gradient 2.6 mmHg AV Area Cont Eq pk 2.4 cm Mitral E Point Velocity 55.3 cm/s Mitral A Point Velocity 65.6 cm/s Mitral E to A Ratio 0.8 LV E' Septal Velocity 6.8 cm/s Mitral E to LV E' Septal Ratio 8.1 PV Peak Velocity 95.0 cm/s PV Peak Gradient 3.6 mmHg FINDINGS LEFT VENTRICLE The left ventricular systolic function is probably normal with an estimated ejection fraction in the range of 55-60%. Wall thickness is normal. Normal left ventricular size. No regional wall motion abnormalities are noted RIGHT VENTRICLE Normal right ventricular size and systolic function. LEFT ATRIUM The left atrial size is normal. RIGHT ATRIUM The right atrial size is normal. ATRIAL SEPTUM The interatrial septum not well visualized. AORTA The aortic root and proximal ascending aorta are not well visualized. MITRAL VALVE Structurally normal mitral valve. No mitral valve stenosis or regurgitation. AORTIC VALVE Trileaflet aortic valve. No aortic valve stenosis or regurgitation. TRICUSPID VALVE Structurally normal tricuspid valve. No tricuspid valve stenosis or regurgitation. PULMONARY VALVE The pulmonary valve is not well visualized. VESSELS The inferior vena cava is normal in size. PERICARDIUM No pericardial effusion. Miguel Trevizo DO (Electronically Signed) Final Date:17 September 2016 17:19
[2016-09-17] MEDS: ATORVASTATIN 80 MG TAB PO SCH (21:14)
[2016-09-18] VITALS (13 sets, daily range): BP systolic 123–161; BP diastolic 62–80; PULSE 71–111; RESP 16–20; TEMP 97.8–98.7; O2SAT 96–99
[2016-09-18] MEDS: SODIUM CHLOR 0.9% 1000 ML INJ 1,000 ML IV SCH ×2 (00:15→12:10)
[2016-09-18] MEDS: CLEVIDIPINE INJ 50 ML IV SCH (00:30)
[2016-09-18] MEDS: LABETALOL HCL 100 MG/20 ML VIAL IV PRN (03:45)
[2016-09-18] MEDS: CHLORHEXIDINE GLUCONATE 2 % 1 PACK (2 CLOTHS) TOP SCH (04:00)
[2016-09-18] MEDS: hydrALAZINE HCL 20 MG/ML VIAL IV PUSH PRN ×2 (06:03→19:16)
[2016-09-18] MEDS: LEVOTHYROXINE SODIUM 75 MCG TAB PO SCH (06:34)
[2016-09-18] MEDS: INSULIN NovoLIN REGULAR SUPPLEMENTAL SCALE SQ SCH ×4 (06:44→21:00)
--- NOTE | 2016-09-18 07:51 | HHI.PR ---
Subjective Remarks sr Objective Vital Signs Date Time Temp Pulse Resp B/P Pulse Ox O2 Delivery O2 Flow Rate FiO2 09/18/16 06:00 92 09/18/16 04:00 97.8 72 16 123/62 96 09/18/16 04:00 71 09/18/16 02:00 85 09/18/16 00:00 98.7 88 18 146/78 99 09/18/16 00:00 77 09/17/16 22:00 96 09/17/16 20:00 98.5 92 18 138/74 97 09/17/16 20:00 85 09/17/16 19:21 97 21 09/17/16 19:00 98 Room Air 09/17/16 18:00 89 09/17/16 16:00 90 09/17/16 16:00 97.8 90 18 133/76 98 09/17/16 14:00 92 09/17/16 12:00 98.4 86 16 146/76 97 09/17/16 12:00 86 09/17/16 10:00 86 09/17/16 08:24 97 21 09/17/16 08:00 98.4 90 8 140/74 100 09/17/16 08:00 90 I/O 09/17/16 09/17/16 09/17/16 09/18/16 09/18/16 09/18/16 07:00 15:00 23:00 07:00 15:00 23:00 Intake Total 796 ml 885 ml 988 ml 799 ml Output Total 450 ml 1200 ml 1000 ml 1000 ml Balance 346 ml -315 ml -12 ml -201 ml Intake Oral 100 ml 200 ml 240 ml 100 ml IV Total 696 ml 685 ml 748 ml 699 ml Output Urine Total 450 ml 1200 ml 1000 ml 1000 ml # Voids 1 1 # Bowel Movements 0 0 0 0 Result Diagram: 09/16/16 0353 09/16/16 0353 Objective Remarks alert c vff 07/24 Assessment and Plan Assessment and Plan imp now another acute r mca cortical infarct and similar in 05/08 i reviewed notes [facility] neg marylou and acc to neg two week holter mult deep and cortical cva i think the left deep ich is a hemorrhagic infarct from the asa and plavix he probably had a silent cva small left in last one month as not present on last ct [facility] he needs coumadin and i think considering the blood on ct we should wait a week to start i dw check mrv and hyper screen ok to floor ok to run bp 120-160 oob // 09/18/16 no change bps 150s left small ich will start coumadin one week he is ok to go to either home if walking well or rehab oob ambulate with PT plz inc his oral meds so we can get him off iv deborah and dced Pio Burgess MD Sep 18, 2016 07:51
[2016-09-18] MEDS: SODIUM CHLORIDE 0.9% FLUSH 10 ML FLUSH IV FLUSH SCH ×2 (09:00→21:00)
[2016-09-18] MEDS: LOSARTAN 50 MG TAB PO SCH (09:07)
[2016-09-18] MEDS: PANTOPRAZOLE SODIUM 40 MG VIAL IV SCH (09:07)
[2016-09-18] MEDS: TOLTERODINE TARTRATE 4 MG CAP LA PO SCH (09:07)
[2016-09-18] MEDS: CARVEDILOL 6.25 MG TAB PO SCH ×2 (09:07→20:51)
[2016-09-18] MEDS: DOCUSATE SODIUM 50 MG/SENNA 8.6 MG TAB PO SCH ×2 (09:07→20:51)
[2016-09-18] MEDS: hydrALAZINE HCL 50 MG TAB PO SCH ×3 (09:35→20:52)
[2016-09-18 11:24] LABS: ANA SCREEN NEG (NEG)
--- NOTE | 2016-09-18 11:40 | HM ---
Date Performed: 09/16/2016 Time Performed: 21:34:00 HOOKUP DATE: 09/16/16 09:34:00 PM Wed ANALYSIS START TIME: 09/16/2016 9:39:00 PM ANALYSIS END TIME: 09/17/2016 9:27:17 PM PATIENT AGE: 56 PATIENT HEIGHT PATIENT WEIGHT DRUG LIST PATIENT DIAGNOSIS: HEMORRHAGE TEST NARRATIVE: The patient's average heart rate was 91 BPM. No episodes of tachycardia wer e noted. No episodes of bradycardia were noted. No pauses exceeding 2.0 seconds were noted. No ventricular ectopics were noted. No supraventricular ectopics were noted. No episodes of S T depression (defined as -1.0 mm or more) were noted in channel 1. No episodes of ST depression (def ined as -1.0 mm or more) were noted in channel 2. No episodes of ST depression (defined as -1.0 mm o r more) were noted in channel 3. EXTREMELY POOR QUALITY TRACING NO DIARY MAINTAINED TEST INTERPRETATION: No diary was present and no significant pauses were noted. The underlying rhythm is Sinus rhythm with average rate 91 beats per minute and range of 72-114 beats per minute. No ectopy was noted. Signed by : Hamilton Fermin
--- NOTE | 2016-09-18 16:30 | HHI.PR ---
Subjective Remarks f/u for CVA his is at bedside. no issues. patient started hydralazine in AM and doing well with medication. he has not required IV meds. nurse at bedside. no new neurological deficit. Objective Vitals Vital Signs Date Time Temp Pulse Resp B/P Pulse Ox O2 Delivery O2 Flow Rate FiO2 09/18/16 14:00 93 09/18/16 12:00 75 09/18/16 12:00 98.4 92 20 132/78 97 09/18/16 11:25 98 09/18/16 10:00 84 09/18/16 08:00 99 09/18/16 08:00 98.0 90 16 145/76 98 09/18/16 06:00 92 09/18/16 04:00 97.8 72 16 123/62 96 09/18/16 04:00 71 09/18/16 02:00 85 09/18/16 00:00 98.7 88 18 146/78 99 09/18/16 00:00 77 09/17/16 22:00 96 09/17/16 20:00 98.5 92 18 138/74 97 09/17/16 20:00 85 09/17/16 19:21 97 21 09/17/16 19:00 98 Room Air 09/17/16 18:00 89 I/O 09/17/16 09/17/16 09/17/16 09/18/16 09/18/16 09/18/16 07:00 15:00 23:00 07:00 15:00 23:00 Intake Total 796 ml 885 ml 988 ml 799 ml 888 ml Output Total 450 ml 1200 ml 1000 ml 1000 ml 1100 ml Balance 346 ml -315 ml -12 ml -201 ml -212 ml Intake Oral 100 ml 200 ml 240 ml 100 ml 240 ml IV Total 696 ml 685 ml 748 ml 699 ml 648 ml Output Urine Total 450 ml 1200 ml 1000 ml 1000 ml 1100 ml # Voids 1 1 # Bowel Movements 0 0 0 0 0 Result Diagram: 09/16/16 0353 09/16/16 0353 Objective Remarks GENERAL: in NAD SKIN: Warm and dry. HEAD: Normocephalic. EYES: No scleral icterus. No injection or drainage. NECK: Supple, trachea midline. No JVD or lymphadenopathy. CARDIOVASCULAR: Regular rate and rhythm without murmurs, gallops, or rubs. RESPIRATORY: Breath sounds equal bilaterally. No accessory muscle use. GASTROINTESTINAL: Abdomen soft, non-tender, nondistended. MUSCULOSKELETAL: No cyanosis, or edema. NEURO: AAO x2. Patient able to give me his last name and then he spells out his first name. He is able to me is in the hospital. Could not tell me that year or month. Patient grossly moves his upper and lower extremity. Medications and IVs Current Medications Sodium Chloride (NS Flush) 2 ml UNSCH PRN IVF FLUSH AFTER USING IV ACCESS; Start 09/14/16 at 22:30; Stop 09/15/16 at 00:58; Status DC Labetalol HCl 20 mg 20 mg ONCE ONCE IV PUSH Last administered on 09/14/16 23: 31; Start 09/14/16 at 23:15; Stop 09/14/16 at 23:16; Status DC Clevidipine (Cleviprex Inj) 50 ml @ 0 mls/hr TITRATE IV Last administered on 00:30; Start 09/14/16 at 23:30 Atorvastatin Calcium (Lipitor) 80 mg HS PO Last administered on 09/17/16 21:14 ; Start 09/15/16 at 21:00 Carvedilol (Coreg) 6.25 mg BID PO Last administered on 09/18/16 09:07; Start 09/15/16 at 09:00 Levothyroxine Sodium (Synthroid) 75 mcg DAILY@07 PO Last administered on 06:34; Start 09/15/16 at 07:00 Losartan Potassium (Cozaar) 100 mg DAILY PO Last administered on 09/18/16 09: 07; Start 09/15/16 at 09:00 Tolterodine Tartrate 4 mg 4 mg DAILY PO Overactive Bladder Last administered on 09/18/16 09:07; Start 09/15/16 at 09:00 Sodium Chloride (NS 1000 ml Inj) 1,000 ml @ 84 mls/hr [id number] IV Last administered on 09/18/16 12:10; Start 09/15/16 at 00:45 Sodium Chloride (NS Flush) 2 ml UNSCH PRN IV FLUSH FLUSH AFTER USING IV ACCESS ; Start 09/15/16 at 00:45 Sodium Chloride (NS Flush) 2 ml BID IV FLUSH Last administered on 09/18/16 09: 00; Start 09/15/16 at 09:00 Acetaminophen (Tylenol) 650 mg Q6H PRN PO PAIN 1-10 AND/OR FEVER >101F; Start 09/15/16 at 00:45 Acetaminophen/ Hydrocodone Bitart ([place] 5-325 Mg) 1 tab Q4H PRN PO PAIN SCALE 1 TO 5; Start 09/15/16 at 00:45 Morphine Sulfate (Morphine Inj) 2 mg Q2H PRN IV PAIN SCALE 6 TO 10; Start 09/15 at 00:45 Pantoprazole Sodium (Protonix Inj) 40 mg DAILY IV Last administered on 09:07; Start 09/15/16 at 09:00 Ondansetron HCl (Zofran Inj) 4 mg Q6H PRN IV NAUSEA OR VOMITING; Start at 00:45 Albuterol Sulfate (Albuterol Neb) 2.5 mg Q2HR NEB PRN INH SOB/WHEEZING; Start 09/15/16 at 00:45 Miscellaneous Information 1 Q361D XX ; Start 09/15/16 at 00:45 Chlorhexidine Gluconate (Chlorhexidine 2% Cloth) 3 pack Taper DAILY@04 TOP Last administered on 09/18/16 04:00; Start 09/15/16 at 04:00; Stop 09/11/17 at 03:59 Chlorhexidine Gluconate (Chlorhexidine 2% Cloth) 3 pack UNSCH PRN TOP HYGIENIC CARE; Start 09/15/16 at 00:45 Senna/Docusate Sodium (Bela-Colace) 1 tab BID PO Last administered on 09:07; Start 09/15/16 at 09:00 Magnesium Hydroxide (Milk Of Magnesia Liq) 30 ml Q12H PRN PO MILD - MODERATE CONSTIPATION; Start 09/15/16 at 00:45 Sennosides (Senokot) 17.2 mg Q12H PRN PO MODERATE - SEVERE CONSTIPATION; Start 09/15/16 at 00:45 Bisacodyl (Dulcolax Supp) 10 mg DAILY PRN RECTAL SEVERE CONSITIPATION; Start at 00:45 Lactulose (Lactulose Liq) 30 ml DAILY PRN PO SEVERE CONSITIPATION; Start at 00:45 Dextrose (D50w (Vial) Inj) 50 ml UNSCH PRN IV HYPOGLYCEMIA-SEE COMMENTS; Start 09/15/16 at 00:45 Glucagon (Glucagon Inj) 1 mg UNSCH PRN OTHER HYPOGLYCEMIA-SEE COMMENTS; Start 09/15/16 at 00:45 Insulin Human Regular (NovoLIN R SUPPLEMENTAL SCALE) 1 ACHS SLIDING SCALE SQ Last administered on 09/18/16 11:21; Start 09/15/16 at 07:00 Labetalol HCl (Trandate Inj) 10 mg Q4H PRN IV SPB > 160, HR > 65 Last administered on 09/18/16 03:45; Start 09/15/16 at 01:00 Hydralazine HCl (Apresoline Inj) 10 mg Q3H PRN IV PUSH SBP > 160 Last administered on 09/18/16 06:03; Start 09/16/16 at 12:15 Gadodiamide (Omniscan Pf Inj) 20 ml STK-MED ONCE IV Last administered on 17:57; Start 09/16/16 at 17:57; Stop 09/16/16 at 17:58; Status DC Gadodiamide (Omniscan Pf Inj) 20 ml STK-MED ONCE IV Last administered on 13:29; Start 09/17/16 at 13:29; Stop 09/17/16 at 13:30; Status DC Hydralazine HCl (Apresoline) 50 mg Q8HR PO Last administered on 09/18/16 14:00 ; Start 09/18/16 at 09:00 A/P Problem List: (1) Nontraumatic thalamic hemorrhage ICD Code: I61.9 Status: Acute (2) Hypertension ICD Code: I10 Status: Acute (3) Dyslipidemia ICD Code: E78.5 Status: Acute (4) Diabetes mellitus ICD Code: E11.9 Status: Acute (5) FRANCHESKA (obstructive sleep apnea) ICD Code: G47.33 Status: Acute (6) Gastroesophageal reflux disease ICD Code: K21.9 Status: Acute (7) Hypothyroidism ICD Code: E03.9 Status: Acute (8) Acute kidney injury ICD Code: N17.9 Status: Acute (9) History of CVA (cerebrovascular accident) ICD Code: Z86.73 Status: Acute Assessment and Plan Left superior anterior thalamic CVA History CVA with old supratentorial CV is noted Acute right MCA cortical infarct -neg GABY and two week holter neg -Per neurologist he thinks that the hemorrhagic infarct was from the aspirin and Plavix and that he probably had a silent CVA small left in the last 1 month that was not present at the other hospital. -Neurologist recommends Coumadin and to wait 1 week before starting medication. -MRV negative and hypocoagulable screening pending. -Per neurologist okay for blood pressure to run 120-160. -PT/OT/ST following Hypertension/Dyslipidemia/FRANCHESKA/GERD/urinary incontinence/hypothyroidism/diabetes On losartan 100 mg daily and Coreg 6.25 mg twice a day at home for hypertension. Continue hydralazine started today and better control of BP. On Crestor 80 mg at night for dyslipidemia. Hold Plavix Continue oxybutynin 10 mg by mouth daily. Continue Levoxyl 75 mg by mouth daily. Check TSH Hold metformin/glipizide 1000/5 one tablet twice a day. Sliding scale insulin Accu-Cheks to maintain euglycemia/low regimen Prophylaxis - GI - Protonix - DVT - SCD/from) prophylaxis contra indicated status post bleed Discharge Planning Patient stable to transfer to neuro floor. If BP is stable off and controlled on oral medication can be discharge to SNF. Problem Qualifiers (1) Hypertension: Qualified Code: I10 - Essential hypertension (2) Diabetes mellitus: Qualified Code: E11.8 - Type 2 diabetes mellitus with complication, without long-term current use of insulin (3) Gastroesophageal reflux disease: Qualified Code: K21.9 - Gastroesophageal reflux disease, esophagitis presence not specified (4) Hypothyroidism: Qualified Code: E03.9 - Hypothyroidism, unspecified type Anisa Rodríguez MD Sep 18, 2016 16:30
[2016-09-18] MEDS: ATORVASTATIN 80 MG TAB PO SCH (20:51)
[2016-09-19] VITALS (14 sets, daily range): BP systolic 121–157; BP diastolic 61–80; PULSE 98–120; RESP 20–26; TEMP 98–101.1; O2SAT 92–97
[2016-09-19] MEDS: SODIUM CHLOR 0.9% 1000 ML INJ 1,000 ML IV SCH ×3 (00:05→22:52)
[2016-09-19] MEDS: hydrALAZINE HCL 20 MG/ML VIAL IV PUSH PRN (00:23)
[2016-09-19] MEDS: CHLORHEXIDINE GLUCONATE 2 % 1 PACK (2 CLOTHS) TOP SCH (04:00)
[2016-09-19] MEDS: hydrALAZINE HCL 50 MG TAB PO SCH ×3 (05:38→21:12)
[2016-09-19] MEDS: LEVOTHYROXINE SODIUM 75 MCG TAB PO SCH (06:07)
[2016-09-19] MEDS: INSULIN NovoLIN REGULAR SUPPLEMENTAL SCALE SQ SCH ×4 (06:34→21:00)
[2016-09-19] MEDS: SODIUM CHLORIDE 0.9% FLUSH 10 ML FLUSH IV FLUSH SCH ×2 (09:00→21:00)
[2016-09-19] MEDS ORDERED: HYDR-3516 PO (09:43)
[2016-09-19] MEDS ORDERED: HYDR-3800 PO (09:43)
[2016-09-19] MEDS ORDERED: PANT40P IV (09:43)
[2016-09-19] MEDS ORDERED: WALKER WHEELS/F1 MIS (09:45)
[2016-09-19] MEDS: TOLTERODINE TARTRATE 4 MG CAP LA PO SCH (09:57)
[2016-09-19] MEDS: PANTOPRAZOLE SODIUM 40 MG VIAL IV SCH (09:57)
[2016-09-19] MEDS: CARVEDILOL 6.25 MG TAB PO SCH ×2 (09:57→21:12)
[2016-09-19] MEDS: LOSARTAN 50 MG TAB PO SCH (09:57)
[2016-09-19] MEDS: DOCUSATE SODIUM 50 MG/SENNA 8.6 MG TAB PO SCH ×2 (09:58→21:12)
--- NOTE | 2016-09-19 11:59 | HHI.PR ---
Subjective Remarks Patient in bed, and nurse at the bedside they told me patient has been lethargic very change in his situation since the morning Per the nurse he was more awake and alert and conversing, he was able to move all his extremities I woke up the patient by sternal rub, he opened his eyes and answer simple question he was able to recognize his , and no he is in the hospital and knows the year 2016 however he thought we are in March, when I asked him to a Fist in both hands he did only in the right hand and ignore the left but later on with further questioning and requesting he was able to raise up his left arm and make a very weak this in his hands According to the and the nurse this is very new and divergent from his baseline We'll do a stat CT without contrast to assess his bleeding, will place a call for neurologist to reassess the patient, he will be contraindicated for TPA due to recent CVA Blood pressure stabilized after adding hydralazine, however patient is tachycardic Objective Vitals Vital Signs Date Time Temp Pulse Resp B/P Pulse Ox O2 Delivery O2 Flow Rate FiO2 09/19/16 07:00 94 Room Air 09/19/16 06:00 117 09/19/16 04:00 120 09/19/16 04:00 100.0 120 21 121/61 94 09/19/16 02:00 118 09/19/16 00:00 98.0 117 20 157/80 94 09/19/16 00:00 120 09/18/16 22:00 111 09/18/16 20:00 103 09/18/16 20:00 98.3 103 17 146/67 98 09/18/16 19:00 98 Room Air 09/18/16 18:00 85 09/18/16 16:00 86 09/18/16 16:00 98.3 86 18 161/80 97 09/18/16 14:00 93 09/18/16 12:00 75 09/18/16 12:00 98.4 92 20 132/78 97 I/O 09/18/16 09/18/16 09/18/16 09/19/16 09/19/16 09/19/16 07:00 15:00 23:00 07:00 15:00 23:00 Intake Total 799 ml 888 ml 1023 ml 669 ml Output Total 1000 ml 1100 ml 750 ml 600 ml Balance -201 ml -212 ml 273 ml 69 ml Intake Oral 100 ml 240 ml 360 ml 120 ml IV Total 699 ml 648 ml 663 ml 549 ml Output Urine Total 1000 ml 1100 ml 750 ml 600 ml # Voids 1 1 # Bowel Movements 0 0 0 0 Result Diagram: 09/16/163 09/16/16 035 Objective Remarks GENERAL: This is a well-nourished, well-developed patient, in no apparent distress. SKIN: No rashes, warm and dry HEAD: Atraumatic. Normocephalic. EYES: Pupils equal round and reactive. Extraocular motions intact. No scleral icterus. ENT: Nose without bleeding, or drainage, Airway patent. NECK: Trachea midline. Supple CARDIOVASCULAR: Regular tachycardia without murmurs, gallops, or rubs. RESPIRATORY: Fair air entry bilaterally. No wheezes, rales, or rhonchi. GASTROINTESTINAL: Abdomen soft, non-tender, nondistended. Positive bowel sounds MUSCULOSKELETAL: Extremities without clubbing, cyanosis, or edema. Pedal pulses appreciated NEUROLOGICAL: Awake and alert oriented to place and person and the year not the month. Right upper and lower extremity 4 out of 5, left upper and lower extremity 2-3 out of 5. Normal speech but slow. A/P Problem List: (1) Nontraumatic thalamic hemorrhage ICD Code: I61.9 Status: Acute (2) Hypertension ICD Code: I10 Status: Acute (3) Dyslipidemia ICD Code: E78.5 Status: Acute (4) Diabetes mellitus ICD Code: E11.9 Status: Acute (5) FRANCHESKA (obstructive sleep apnea) ICD Code: G47.33 Status: Acute (6) Gastroesophageal reflux disease ICD Code: K21.9 Status: Acute (7) Hypothyroidism ICD Code: E03.9 Status: Acute (8) Acute kidney injury ICD Code: N17.9 Status: Acute (9) History of CVA (cerebrovascular accident) ICD Code: Z86.73 Status: Acute Assessment and Plan 09/19: Per the and the nurse significant change in status including left upper and lower worsening weakness, blood pressure improved after adding hydralazine, tachycardia 110/120, need to rule out any underlying sepsis considering low-grade fever of 100 today >> Stat Accu-Chek has been done showing 170 >> Check stat CT without contrast assess bleeding, contraindication for TPA due to this >> Neuro check every hour >> Placed call for neurology to reassess Discussed with nurse, , reviewed previous imagings , previous note from other attending and specialist, decision made to hold on discharge today and workup worsening neuro status >> Neurosurgery also notified stable follow on CT had >> Check lactic acid and CBC stat, blood culture A/P: Left superior anterior thalamic CVA History CVA with old supratentorial CV is noted Acute right MCA cortical infarct -neg GABY and two week holter neg -Per neurologist he thinks that the hemorrhagic infarct was from the aspirin and Plavix and that he probably had a silent CVA small left in the last 1 month that was not present at the other hospital. -Neurologist recommends Coumadin and to wait 1 week before starting medication. -MRV negative and hypocoagulable screening pending. -Per neurologist okay for blood pressure to run 120-160. -PT/OT/ST following Hypertension/Dyslipidemia/FRANCHESKA/GERD/urinary incontinence/hypothyroidism/diabetes On losartan 100 mg daily and Coreg 6.25 mg twice a day at home for hypertension. Continue hydralazine started today and better control of BP. On Crestor 80 mg at night for dyslipidemia. Hold Plavix Continue oxybutynin 10 mg by mouth daily. Continue Levoxyl 75 mg by mouth daily. Check TSH Hold metformin/glipizide 1000/5 one tablet twice a day. Sliding scale insulin Accu-Cheks to maintain euglycemia/low regimen Prophylaxis - GI - Protonix - DVT - SCD/from) prophylaxis contra indicated status post bleed Problem Qualifiers (1) Hypertension: Qualified Code: I10 - Essential hypertension (2) Diabetes mellitus: Qualified Code: E11.8 - Type 2 diabetes mellitus with complication, without long-term current use of insulin (3) Gastroesophageal reflux disease: Qualified Code: K21.9 - Gastroesophageal reflux disease, esophagitis presence not specified (4) Hypothyroidism: Qualified Code: E03.9 - Hypothyroidism, unspecified type Luciana Heck MD Sep 19, 2016 11:59
--- NOTE | 2016-09-19 13:10 | RADRPT ---
EXAM DATE/TIME: 09/19/2016 12:45 [facility] COMPARISON: CT BRAIN W/O CONTRAST, September 15, 2016, 10:38. INDICATIONS : Evaluate hemorrhage RADIATION DOSE: 36.53 CTDIvol (mGy) MEDICAL HISTORY : Hypertension. Stroke SURGICAL HISTORY : None. ENCOUNTER: Initial ACUITY: 1 day PAIN SCALE: Non-responsive LOCATION: cranial TECHNIQUE: Multiple contiguous axial images were obtained of the head. Using automated exposure control and adj ustment of the mA and/or kV according to patient size, radiation dose was kept as low as reasonably a chievable to obtain optimal diagnostic quality images. DICOM format image data is available electro nically for review and comparison. FINDINGS: Compare September 15. Small left thalamic hemorrhage again noted. No new hemorrhage or mass effect. Chroni c white matter ischemic changes and old lacunar infarcts in the periventricular region bilaterally. CONCLUSION: 1. Evolving small thalamic hemorrhage on the left. No acute intracranial abnormalities. Celso Andrew MD on September 19, 2016 at 13:02 Board Certified Radiologist. This report was verified electronically.
[2016-09-19 14:15] LABS: AUTOMATED NEUTROPHIL # 11.9 TH/MM3 (1.8-7.7); BASOPHIL # 0.1 TH/MM3 (0-0.2); BASOPHIL % 0.4 % (0.0-2.0); HEMATOCRIT 39.8 % (39.0-51.0); HEMO FLAGS DIFF FINAL; LYMPH % 9.9 % (9.0-44.0); LYMPHOCYTE # 1.4 TH/MM3 (1.0-4.8); MEAN CELL VOLUME 88.7 FL (80.0-100.0); MEAN CORPUSCULAR HEMOGLOBIN 31.2 PG (27.0-34.0); MEAN CORPUSCULAR HGB CONC 35.2 % (32.0-36.0); MONO % 5.9 % (0.0-8.0); NEUT % 83.8 % (16.0-70.0); PLATELET COUNT 158 TH/MM3 (150-450); RED BLOOD COUNT 4.49 MIL/MM3 (4.50-5.90); RED CELL DISTRIBUTION WIDTH 13.4 % (11.6-17.2); WHITE BLOOD COUNT 14.2 TH/MM3 (4.0-11.0)
--- NOTE | 2016-09-19 16:25 | HHI.NSPN ---
Note Status Status: Progress Note Interval History Interval History This is a 56-year-old right-handed male. He has history of prior CVA 2008 in 2017, hypertension, dyslipidemia, diabetes mellitus, gastroesophageal reflux disease, obstructive sleep apnea. He presented with increasing confusion, left facial droop subjectively the left upper extremity/sensation. According to his daughter, he is more confused than his baseline.. Upon arrival, patient had imaging the brain from which revealed a left basal ganglia bleed.without significant mass effect or midline shift. He was hypertensive with systolic in the 180s. He is currently on a Cleviprex drip to maintain systolic blood pressure less than 150.. Noted left facial droop, left pronator drift and decreased sensation to left upper extremity. Neurosurgical consultation was requested 09/16: doing well, neuro stable overnight. f/u CT Head yesterday was stable. 09/17: sitting up in chair eating breakfast. MRI Brain shows multiple strokes, Neurology work up 09/18. Alerty, awake neurologically stable 09/19. Today he became lethargic, stuporose, very confused. CT brain ordered Labs, Micro, & Vital Signs Results Date Time Temp Pulse Resp B/P Pulse Ox O2 Delivery O2 Flow Rate FiO2 09/19/16 07:00 94 Room Air 09/19/16 06:00 117 09/19/16 04:00 120 09/19/16 04:00 100.0 120 21 121/61 94 09/19/16 02:00 118 09/19/16 00:00 98.0 117 20 157/80 94 09/19/16 00:00 120 09/18/16 22:00 111 09/18/16 20:00 103 09/18/16 20:00 98.3 103 17 146/67 98 09/18/16 19:00 98 Room Air 09/18/16 18:00 85 09/19/16 07:00 Intake Total 2580 ml Output Total 2450 ml Balance 130 ml Constitutional Vital Signs Date Time Temp Pulse Resp B/P Pulse Ox O2 Delivery O2 Flow Rate FiO2 09/19/16 07:00 94 Room Air 09/19/16 06:00 117 09/19/16 04:00 120 09/19/16 04:00 100.0 120 21 121/61 94 09/19/16 02:00 118 09/19/16 00:00 98.0 117 20 157/80 94 09/19/16 00:00 120 09/18/16 22:00 111 09/18/16 20:00 103 09/18/16 20:00 98.3 103 17 146/67 98 09/18/16 19:00 98 Room Air 09/18/16 18:00 85 09/19/16 07:00 Intake Total 2580 ml Output Total 2450 ml Balance 130 ml Review of Systems/Exam Exam Mr. Murphy is very lehargic, stuporose. Confused Cranial nerve examination: pupils equal, round, and reactive to light. Facial motor appears symmetric. Neck is soft and supple. Muscle strength: moves all four extremities grossly symmetrically b/l. Plantar flexors b/l. Hoffmanns sign is negative. Medications Current Medications Current Medications Sodium Chloride (NS Flush) 2 ml UNSCH PRN IVF FLUSH AFTER USING IV ACCESS; Start 09/14/16 at 22:30; Stop 09/15/16 at 00:58; Status DC Labetalol HCl 20 mg 20 mg ONCE ONCE IV PUSH Last administered on 09/14/16 23: 31; Start 09/14/16 at 23:15; Stop 09/14/16 at 23:16; Status DC Clevidipine (Cleviprex Inj) 50 ml @ 0 mls/hr TITRATE IV Last administered on 00:30; Start 09/14/16 at 23:30 Atorvastatin Calcium (Lipitor) 80 mg HS PO Last administered on 09/19/16 21:12 ; Start 09/15/16 at 21:00 Carvedilol (Coreg) 6.25 mg BID PO Last administered on 09/19/16 21:12; Start at 09:00 Levothyroxine Sodium (Synthroid) 75 mcg DAILY@07 PO Last administered on 06:07; Start 09/15/16 at 07:00 Losartan Potassium (Cozaar) 100 mg DAILY PO Last administered on 09/19/16 09:57 ; Start 09/15/16 at 09:00 Tolterodine Tartrate 4 mg 4 mg DAILY PO Overactive Bladder Last administered on 09/19/16 09:57; Start 09/15/16 at 09:00 Sodium Chloride (NS 1000 ml Inj) 1,000 ml @ 84 mls/hr [id number] IV Last administered on 09/19/16 22:52; Start 09/15/16 at 00:45 Sodium Chloride (NS Flush) 2 ml UNSCH PRN IV FLUSH FLUSH AFTER USING IV ACCESS ; Start 09/15/16 at 00:45 Sodium Chloride (NS Flush) 2 ml BID IV FLUSH Last administered on 09/19/16 21: 00; Start 09/15/16 at 09:00 Acetaminophen (Tylenol) 650 mg Q6H PRN PO FEVER >101F Last administered on 18:15; Start 09/15/16 at 00:45 Acetaminophen/ Hydrocodone Bitart ([place]ne 5-325 Mg) 1 tab Q4H PRN PO PAIN SCALE 1 TO 5; Start 09/15/16 at 00:45 Morphine Sulfate (Morphine Inj) 2 mg Q2H PRN IV PAIN SCALE 6 TO 10; Start 09/15 at 00:45 Pantoprazole Sodium (Protonix Inj) 40 mg DAILY IV Last administered on 09:57; Start 09/15/16 at 09:00 Ondansetron HCl (Zofran Inj) 4 mg Q6H PRN IV NAUSEA OR VOMITING; Start at 00:45 Albuterol Sulfate (Albuterol Neb) 2.5 mg Q2HR NEB PRN INH SOB/WHEEZING; Start 09/15/16 at 00:45 Miscellaneous Information 1 Q361D XX ; Start 09/15/16 at 00:45 Chlorhexidine Gluconate (Chlorhexidine 2% Cloth) 3 pack Taper DAILY@04 TOP Last administered on 09/19/16 04:00; Start 09/15/16 at 04:00; Stop 09/11/17 at 03:59 Chlorhexidine Gluconate (Chlorhexidine 2% Cloth) 3 pack UNSCH PRN TOP HYGIENIC CARE; Start 09/15/16 at 00:45 Senna/Docusate Sodium (Bela-Colace) 1 tab BID PO Last administered on 09/19/16 21:12; Start 09/15/16 at 09:00 Magnesium Hydroxide (Milk Of Magnesia Liq) 30 ml Q12H PRN PO MILD - MODERATE CONSTIPATION; Start 09/15/16 at 00:45 Sennosides (Senokot) 17.2 mg Q12H PRN PO MODERATE - SEVERE CONSTIPATION; Start 09/15/16 at 00:45 Bisacodyl (Dulcolax Supp) 10 mg DAILY PRN RECTAL SEVERE CONSITIPATION; Start at 00:45 Lactulose (Lactulose Liq) 30 ml DAILY PRN PO SEVERE CONSITIPATION; Start at 00:45 Dextrose (D50w (Vial) Inj) 50 ml UNSCH PRN IV HYPOGLYCEMIA-SEE COMMENTS; Start 09/15/16 at 00:45 Glucagon (Glucagon Inj) 1 mg UNSCH PRN OTHER HYPOGLYCEMIA-SEE COMMENTS; Start 09/15/16 at 00:45 Insulin Human Regular (NovoLIN R SUPPLEMENTAL SCALE) 1 ACHS SLIDING SCALE SQ Last administered on 09/19/16 21:00; Start 09/15/16 at 07:00 Labetalol HCl (Trandate Inj) 10 mg Q4H PRN IV SPB > 160, HR > 65 Last administered on 09/18/16 03:45; Start 09/15/16 at 01:00 Hydralazine HCl (Apresoline Inj) 10 mg Q3H PRN IV PUSH SBP > 160 Last administered on 09/19/16 00:23; Start 09/16/16 at 12:15 Gadodiamide (Omniscan Pf Inj) 20 ml STK-MED ONCE IV Last administered on 17:57; Start 09/16/16 at 17:57; Stop 09/16/16 at 17:58; Status DC Gadodiamide (Omniscan Pf Inj) 20 ml STK-MED ONCE IV Last administered on 13:29; Start 09/17/16 at 13:29; Stop 09/17/16 at 13:30; Status DC Hydralazine HCl (Apresoline) 50 mg Q8HR PO Last administered on 09/19/16 21:12 ; Start 09/18/16 at 09:00 Medical Decision Making MDM Remarks Last Impressions Head CT 09/19/16 0000 Signed Impressions: Service Date/Time: Monday, September 19, 2016 12:45 - CONCLUSION: 1. Evolving small thalamic hemorrhage on the left. No acute intracranial abnormalities. Celso Andrew MD Head/Brain Mag Res Venography 09/17/16 0000 Signed Impressions: Service Date/Time: August 12:37 - CONCLUSION: Negative Arben King MD Neck Magnetic Resonance Angiography 09/16/16900 Signed Impressions: Service Date/Time: Friday, September 16, 2016 15:51 - CONCLUSION: Normal examination. Arben King MD Head Magnetic Resonance Angiography 09/16/16900 Signed Impressions: Service Date/Time: Friday, September 16, 2016 15:51 - CONCLUSION: No acute kaibab of [place] vascular findings Arben King MD Brain MRI 09/16/16900 Signed Impressions: Service Date/Time: Friday, September 16, 2016 15:51 - CONCLUSION: Central and cortical atrophy with periventricular white matter changes. Focal 1 cm area of restricted diffusion high right centrum semiovale. Chronic hemosiderin changes basalganglia on the left. There is no contrast enhancement. Aly Smiley MD FACR Chest X-Ray 09/14/160 Signed Impressions: Service Date/Time: Wednesday, September 14, 2016 22:30 - CONCLUSION: No acute disease. Eugene Gutierrez MD Plan Plan Remarks 56 y/o male with small left basal ganglia hemorrhage, stable, nonoperative multiple CVA on MRI Brain Attending Statement Intracranial bleed, Continue neuro checks. ALtered mental status. STAT CT brain r/o further hemorrhage Follow up with neurology HTN. Cont to Treat with antihypertensives as needed Pulmonary. aggressive pulmonary toilette, nasotracheal suction, and breathing treatments with nebulizers. PT and OT evaluation Nutrition. NPO Renal. monitor closely urine output, BUN and creatinine Endocrine. Monitor serial Acu checks and SSI as needed in detail ID monitor for signs of infection Hyperlipidemia Continue Atorvastatin Hypothyroidism Check TSH level Protonix for stress ulcer prophylaxis Luke hose and SCD's for DVT prophylaxis Biju Low MD Sep 19, 2016 16:25
[2016-09-19] MEDS: ACETAMINOPHEN 325 MG TAB PO PRN (18:15)
[2016-09-19] MEDS: ATORVASTATIN 80 MG TAB PO SCH (21:12)
[2016-09-19 23:51] LABS: THROMBIN TIME FOR LA ND sec (13-19)
[2016-09-20] VITALS (12 sets, daily range): BP systolic 117–156; BP diastolic 69–83; PULSE 88–118; RESP 20–25; TEMP 98.8–99.7; O2SAT 94–97
--- NOTE | 2016-09-20 00:37 | HHI.NSPN ---
Note Status Status: Progress Note Interval History Interval History THIS NOTE REFLECTS MY ENCOUNTER ON 09/18 WHEN MR MURPHY WAS EVALUATED DURING ROUNDS This is a 56-year-old right-handed male. He has history of prior CVA 2008 in 2017, hypertension, dyslipidemia, diabetes mellitus, gastroesophageal reflux disease, obstructive sleep apnea. He presented with increasing confusion, left facial droop subjectively the left upper extremity/sensation. According to his daughter, he is more confused than his baseline.. Upon arrival, patient had imaging the brain from which revealed a left basal ganglia bleed.without significant mass effect or midline shift. He was hypertensive with systolic in the 180s. He is currently on a Cleviprex drip to maintain systolic blood pressure less than 150.. Noted left facial droop, left pronator drift and decreased sensation to left upper extremity. Neurosurgical consultation was requested 09/16: doing well, neuro stable overnight. f/u CT Head yesterday was stable. 09/17: sitting up in chair eating breakfast. MRI Brain shows multiple strokes, Neurology work up 09/18. Alerty, awake neurologically stable Labs, Micro, & Vital Signs Results THIS NOTE REFLECTS MY ENCOUNTER ON 09/18 WHEN MR MURPHY WAS EVALUATED DURING ROUNDS Date Time Temp Pulse Resp B/P Pulse Ox O2 Delivery O2 Flow Rate FiO2 09/20/16 00:00 99.0 107 23 137/83 97 09/20/16 00:00 107 09/19/16 22:00 98 09/19/16 22:00 23 09/19/16 20:00 99 09/19/16 20:00 98.4 105 23 124/63 97 09/19/16 19:47 97 09/19/16 19:00 97 Room Air 09/19/16 18:00 110 09/19/16 17:22 100.3 118 26 155/67 95 09/19/16 16:00 101.1 112 24 136/70 92 09/19/16 16:00 112 09/19/16 14:00 106 09/19/16 12:00 110 09/19/16 12:00 99.4 110 24 134/68 95 09/19/16 10:00 118 7/1/17 08:00 118 09/19/16 07:00 94 Room Air 09/19/16 06:00 117 09/19/16 04:00 120 09/19/16 04:00 100.0 120 21 121/61 94 09/19/16 02:00 118 09/20/16 07:00 Intake Total 1583 ml Output Total 0 ml Balance 1583 ml Constitutional THIS NOTE REFLECTS MY ENCOUNTER ON 09/18 WHEN MR MURPHY WAS EVALUATED DURING ROUNDS Vital Signs Date Time Temp Pulse Resp B/P Pulse Ox O2 Delivery O2 Flow Rate FiO2 09/20/16 00:00 99.0 107 23 137/83 97 09/20/16 00:00 107 09/19/16 22:00 98 09/19/16 22:00 23 09/19/16 20:00 99 09/19/16 20:00 98.4 105 23 124/63 97 09/19/16 19:47 97 09/19/16 19:00 97 Room Air 09/19/16 18:00 110 09/19/16 17:22 100.3 118 26 155/67 95 09/19/16 16:00 101.1 112 24 136/70 92 09/19/16 16:00 112 09/19/16 14:00 106 09/19/16 12:00 110 09/19/16 12:00 99.4 110 24 134/68 95 09/19/16 10:00 118 09/19/16 08:00 118 09/19/16 07:00 94 Room Air 09/19/16 06:00 117 09/19/16 04:00 120 09/19/16 04:00 100.0 120 21 121/61 94 09/19/16 02:00 118 09/20/16 07:00 Intake Total 1583 ml Output Total 0 ml Balance 1583 ml Review of Systems/Exam ROS THIS NOTE REFLECTS MY ENCOUNTER ON 09/18 WHEN MR MURPHY WAS EVALUATED DURING ROUNDS Exam THIS NOTE REFLECTS MY ENCOUNTER ON 09/18 WHEN MR MURPHY WAS EVALUATED DURING ROUNDS Mr. Murphy is alert, conversing. Sitting up in chair eating breakfast. Cranial nerve examination: pupils equal, round, and reactive to light. Facial motor appears symmetric. Neck is soft and supple. Muscle strength: moves all four extremities grossly symmetrically b/l. Plantar flexors b/l. Hoffmanns sign is negative. Mr. Murphy is alert, awake. Int confusion Cranial nerve examination: pupils equal, round, and reactive to light. Neck is soft and supple. Muscle strength: moves all four extremities grossly symmetrically b/l. Plantar flexors b/l. Hoffmanns sign is negative. Cerebellar examination is intact to [id number] test Medications Current Medications THIS NOTE REFLECTS MY ENCOUNTER ON 09/18 WHEN MR MURPHY WAS EVALUATED DURING ROUNDS Current Medications Sodium Chloride (NS Flush) 2 ml UNSCH PRN IVF FLUSH AFTER USING IV ACCESS; Start 09/14/16 at 22:30; Stop 09/15/16 at 00:58; Status DC Labetalol HCl 20 mg 20 mg ONCE ONCE IV PUSH Last administered on 09/14/16 23: 31; Start 09/14/16 at 23:15; Stop 09/14/16 at 23:16; Status DC Clevidipine (Cleviprex Inj) 50 ml @ 0 mls/hr TITRATE IV Last administered on 00:30; Start 09/14/16 at 23:30 Atorvastatin Calcium (Lipitor) 80 mg HS PO Last administered on 09/19/16 21:12 ; Start 09/15/16 at 21:00 Carvedilol (Coreg) 6.25 mg BID PO Last administered on 09/19/16 21:12; Start at 09:00 Levothyroxine Sodium (Synthroid) 75 mcg DAILY@07 PO Last administered on 06:07; Start 09/15/16 at 07:00 Losartan Potassium (Cozaar) 100 mg DAILY PO Last administered on 09/19/16 09:57 ; Start 09/15/16 at 09:00 Tolterodine Tartrate 4 mg 4 mg DAILY PO Overactive Bladder Last administered on 09/19/16 09:57; Start 09/15/16 at 09:00 Sodium Chloride (NS 1000 ml Inj) 1,000 ml @ 84 mls/hr [id number] IV Last administered on 09/19/16 22:52; Start 09/15/16 at 00:45 Sodium Chloride (NS Flush) 2 ml UNSCH PRN IV FLUSH FLUSH AFTER USING IV ACCESS ; Start 09/15/16 at 00:45 Sodium Chloride (NS Flush) 2 ml BID IV FLUSH Last administered on 09/19/16 21: 00; Start 09/15/16 at 09:00 Acetaminophen (Tylenol) 650 mg Q6H PRN PO FEVER >101F Last administered on 18:15; Start 09/15/16 at 00:45 Acetaminophen/ Hydrocodone Bitart ([place] 5-325 Mg) 1 tab Q4H PRN PO PAIN SCALE 1 TO 5; Start 09/15/16 at 00:45 Morphine Sulfate (Morphine Inj) 2 mg Q2H PRN IV PAIN SCALE 6 TO 10; Start 09/15 at 00:45 Pantoprazole Sodium (Protonix Inj) 40 mg DAILY IV Last administered on 09:57; Start 09/15/16 at 09:00 Ondansetron HCl (Zofran Inj) 4 mg Q6H PRN IV NAUSEA OR VOMITING; Start at 00:45 Albuterol Sulfate (Albuterol Neb) 2.5 mg Q2HR NEB PRN INH SOB/WHEEZING; Start 09/15/16 at 00:45 Miscellaneous Information 1 Q361D XX ; Start 09/15/16 at 00:45 Chlorhexidine Gluconate (Chlorhexidine 2% Cloth) 3 pack Taper DAILY@04 TOP Last administered on 09/19/16 04:00; Start 09/15/16 at 04:00; Stop 09/11/17 at 03:59 Chlorhexidine Gluconate (Chlorhexidine 2% Cloth) 3 pack UNSCH PRN TOP HYGIENIC CARE; Start 09/15/16 at 00:45 Senna/Docusate Sodium (Bela-Colace) 1 tab BID PO Last administered on 09/19/16 21:12; Start 09/15/16 at 09:00 Magnesium Hydroxide (Milk Of Magnesia Liq) 30 ml Q12H PRN PO MILD - MODERATE CONSTIPATION; Start 09/15/16 at 00:45 Sennosides (Senokot) 17.2 mg Q12H PRN PO MODERATE - SEVERE CONSTIPATION; Start 09/15/16 at 00:45 Bisacodyl (Dulcolax Supp) 10 mg DAILY PRN RECTAL SEVERE CONSITIPATION; Start at 00:45 Lactulose (Lactulose Liq) 30 ml DAILY PRN PO SEVERE CONSITIPATION; Start at 00:45 Dextrose (D50w (Vial) Inj) 50 ml UNSCH PRN IV HYPOGLYCEMIA-SEE COMMENTS; Start 09/15/16 at 00:45 Glucagon (Glucagon Inj) 1 mg UNSCH PRN OTHER HYPOGLYCEMIA-SEE COMMENTS; Start 09/15/16 at 00:45 Insulin Human Regular (NovoLIN R SUPPLEMENTAL SCALE) 1 ACHS SLIDING SCALE SQ Last administered on 09/19/16 21:00; Start 09/15/16 at 07:00 Labetalol HCl (Trandate Inj) 10 mg Q4H PRN IV SPB > 160, HR > 65 Last administered on 09/18/16 03:45; Start 09/15/16 at 01:00 Hydralazine HCl (Apresoline Inj) 10 mg Q3H PRN IV PUSH SBP > 160 Last administered on 09/19/16 00:23; Start 09/16/16 at 12:15 Gadodiamide (Omniscan Pf Inj) 20 ml STK-MED ONCE IV Last administered on 17:57; Start 09/16/16 at 17:57; Stop 09/16/16 at 17:58; Status DC Gadodiamide (Omniscan Pf Inj) 20 ml STK-MED ONCE IV Last administered on 13:29; Start 09/17/16 at 13:29; Stop 09/17/16 at 13:30; Status DC Hydralazine HCl (Apresoline) 50 mg Q8HR PO Last administered on 09/19/16 21:12 ; Start 09/18/16 at 09:00 Medical Decision Making MDM Remarks THIS NOTE REFLECTS MY ENCOUNTER ON 09/18 WHEN MR MURPHY WAS EVALUATED DURING ROUNDS Last Impressions Head/Brain Mag Res Venography 09/17/16 0000 Signed Impressions: Service Date/Time: August 12:37 - CONCLUSION: Negative Arben King MD Neck Magnetic Resonance Angiography 09/16/16900 Signed Impressions: Service Date/Time: Friday, September 16, 2016 15:51 - CONCLUSION: Normal examination. Arben King MD Head Magnetic Resonance Angiography 09/16/16900 Signed Impressions: Service Date/Time: Friday, September 16, 2016 15:51 - CONCLUSION: No acute [place] vascular findings Arben King MD Brain MRI 09/16/16 0901 Signed Impressions: Service Date/Time: Friday, September 16, 2016 15:51 - CONCLUSION: Central and cortical atrophy with periventricular white matter changes. Focal 1 cm area of restricted diffusion high right centrum semiovale. Chronic hemosiderin changes basalganglia on the left. There is no contrast enhancement. Aly Smiley MD FACR Chest X-Ray 09/14/160 Signed Impressions: Service Date/Time: Wednesday, September 14, 2016 22:30 - CONCLUSION: No acute disease. Eugene Gutierrez MD Plan Plan Remarks THIS NOTE REFLECTS MY ENCOUNTER ON 09/18 WHEN MR MURPHY WAS EVALUATED DURING ROUNDS 56 y/o male with small left basal ganglia hemorrhage, stable, nonoperative multiple CVA on MRI Brain Attending Statement THIS NOTE REFLECTS MY ENCOUNTER ON 09/18 WHEN MR MURPHY WAS EVALUATED DURING ROUNDS Intracranial bleed, Continue neuro checks in a serial fashion. Multiple strokes HTN. Cont to Treat with antihypertensives as needed Pulmonary. aggressive pulmonary toilette, nasotracheal suction, and breathing treatments with nebulizers. PT and OT evaluation Nutrition. NPO Renal. monitor closely urine output, BUN and creatinine Endocrine. Monitor serial Acu checks and SSI as needed in detail ID monitor for signs of infection Hyperlipidemia Continue Atorvastatin Hypothyroidism Check TSH level Protonix for stress ulcer prophylaxis Luke pleitez and SCD's for DVT prophylaxis Biju Low MD Sep 20, 2016 00:37
--- NOTE | 2016-09-20 00:38 | HHI.NSPN ---
Note Status Status: Progress Note Interval History Interval History This is a 56-year-old right-handed male. He has history of prior CVA 2008 in 2017, hypertension, dyslipidemia, diabetes mellitus, gastroesophageal reflux disease, obstructive sleep apnea. He presented with increasing confusion, left facial droop subjectively the left upper extremity/sensation. According to his daughter, he is more confused than his baseline.. Upon arrival, patient had imaging the brain from which revealed a left basal ganglia bleed.without significant mass effect or midline shift. He was hypertensive with systolic in the 180s. He is currently on a Cleviprex drip to maintain systolic blood pressure less than 150.. Noted left facial droop, left pronator drift and decreased sensation to left upper extremity. Neurosurgical consultation was requested 09/16: doing well, neuro stable overnight. f/u CT Head yesterday was stable. 09/17: sitting up in chair eating breakfast. MRI Brain shows multiple strokes, Neurology work up 09/18. Alerty, awake neurologically stable 09/19. Today he became lethargic, stuporose, very confused. CT brain ordered 09/20 Labs, Micro, & Vital Signs Results Date Time Temp Pulse Resp B/P Pulse Ox O2 Delivery O2 Flow Rate FiO2 09/20/16 00:00 99.0 107 23 137/83 97 09/20/16 00:00 107 09/19/16 22:00 98 09/19/16 22:00 23 09/19/16 20:00 99 09/19/16 20:00 98.4 105 23 124/63 97 09/19/16 19:47 97 09/19/16 19:00 97 Room Air 09/19/16 18:00 110 09/19/16 17:22 100.3 118 26 155/67 95 09/19/16 16:00 101.1 112 24 136/70 92 09/19/16 16:00 112 09/19/16 14:00 106 09/19/16 12:00 110 09/19/16 12:00 99.4 110 24 134/68 95 09/19/16 10:00 118 09/19/16 08:00 118 7/1/17 07:00 94 Room Air 09/19/16 06:00 117 09/19/16 04:00 120 09/19/16 04:00 100.0 120 21 121/61 94 09/19/16 02:00 118 09/20/16 07:00 Intake Total 1583 ml Output Total 0 ml Balance 1583 ml Constitutional Vital Signs Date Time Temp Pulse Resp B/P Pulse Ox O2 Delivery O2 Flow Rate FiO2 09/20/16 00:00 99.0 107 23 137/83 97 09/20/16 00:00 107 09/19/16 22:00 98 09/19/16 22:00 23 09/19/16 20:00 99 09/19/16 20:00 98.4 105 23 124/63 97 09/19/16 19:47 97 09/19/16 19:00 97 Room Air 09/19/16 18:00 110 09/19/16 17:22 100.3 118 26 155/67 95 09/19/16 16:00 101.1 112 24 136/70 92 09/19/16 16:00 112 09/19/16 14:00 106 09/19/16 12:00 110 09/19/16 12:00 99.4 110 24 134/68 95 09/19/16 10:00 118 09/19/16 08:00 118 09/19/16 07:00 94 Room Air 09/19/16 06:00 117 09/19/16 04:00 120 09/19/16 04:00 100.0 120 21 121/61 94 09/19/16 02:00 118 09/20/16 07:00 Intake Total 1583 ml Output Total 0 ml Balance 1583 ml Review of Systems/Exam Exam Mr. Murphy is alert, conversing. Sitting up in chair eating breakfast. Cranial nerve examination: pupils equal, round, and reactive to light. Facial motor appears symmetric. Neck is soft and supple. Muscle strength: moves all four extremities grossly symmetrically b/l. Plantar flexors b/l. Hoffmanns sign is negative. Mr. Murphy is alert, awake Cranial nerve examination: pupils equal, round, and reactive to light. Facial motor appears symmetric. Neck is soft and supple. Muscle strength: moves all four extremities grossly symmetrically b/l. Plantar flexors b/l. Hoffmanns sign is negative. Cerebellar exam unremarkable Plan Plan Remarks 56 y/o male with small left basal ganglia hemorrhage, stable, nonoperative multiple CVA on MRI Brain Attending Statement Neuro. Continue checks in a serial fashion. Respiratory. pulmonary toilette, nasotracheal suction, and breathing treatments with nebulizers. PT and OT eval Nutrition. oral dit Renal. monitor closely urine output, BUN and creatinine Endocrine. Monitor serial Acu checks and SSI for tight control ID monitor for signs of infection Protonix for stress ulcer prophylaxis Luke hose and SCD's for DVT prophylaxis The exam, history, and the medical decision-making described in the above note were completed with the assistance of the mid-level provider. I reviewed and agree with the findings presented. I attest that I had a [id number]-ufiy encounter with the patient on the same day, and personally performed and documented my assessment and findings in the medical record. Biju Low MD Sep 20, 2016 00:38
[2016-09-20] MEDS: ACETAMINOPHEN 325 MG TAB PO PRN (01:13)
[2016-09-20] MEDS: CHLORHEXIDINE GLUCONATE 2 % 1 PACK (2 CLOTHS) TOP SCH (04:00)
[2016-09-20 05:58] LABS: AUTOMATED NEUTROPHIL # 6.8 TH/MM3 (1.8-7.7); BASOPHIL % 0.5 % (0.0-2.0); EOSINOPHIL % 0.2 % (0.0-4.0); HEMATOCRIT 36.9 % (39.0-51.0); LYMPH % 19.3 % (9.0-44.0); LYMPHOCYTE # 1.8 TH/MM3 (1.0-4.8); MEAN CELL VOLUME 88.5 FL (80.0-100.0); MEAN CORPUSCULAR HEMOGLOBIN 31.6 PG (27.0-34.0); MEAN CORPUSCULAR HGB CONC 35.7 % (32.0-36.0); MONO % 7.1 % (0.0-8.0); NEUT % 72.9 % (16.0-70.0); PLATELET COUNT 125 TH/MM3 (150-450); RED BLOOD COUNT 4.17 MIL/MM3 (4.50-5.90); RED CELL DISTRIBUTION WIDTH 13.4 % (11.6-17.2); WHITE BLOOD COUNT 9.4 TH/MM3 (4.0-11.0)
[2016-09-20 05:59] LABS: HEMO FLAGS AUTO DIFF
[2016-09-20] MEDS: hydrALAZINE HCL 50 MG TAB PO SCH ×3 (06:00→22:24)
[2016-09-20] MEDS: LEVOTHYROXINE SODIUM 75 MCG TAB PO SCH (06:00)
[2016-09-20] MEDS: INSULIN NovoLIN REGULAR SUPPLEMENTAL SCALE SQ SCH ×4 (06:21→21:00)
[2016-09-20 06:47] LABS: BANDS 12 % (0-6); NEUTROPHIL # MANUAL DIFF 8.2 TH/MM3 (1.8-7.7); PLATELET ESTIMATE SMEAR LOW (NORMAL); PLATELET MORPHOLOGY NORMAL (NORMAL); POLYS (SEG NEUTROPHILS) 75 % (16-70); SCAN/DIFF FINAL DIFF MANUAL; WBC DIFF SAMPLE 100
[2016-09-20] MEDS: CARVEDILOL 6.25 MG TAB PO SCH ×2 (08:48→22:24)
[2016-09-20] MEDS: LOSARTAN 50 MG TAB PO SCH (08:48)
[2016-09-20] MEDS: TOLTERODINE TARTRATE 4 MG CAP LA PO SCH (08:48)
[2016-09-20] MEDS: PANTOPRAZOLE SODIUM 40 MG VIAL IV SCH (08:49)
[2016-09-20] MEDS: DOCUSATE SODIUM 50 MG/SENNA 8.6 MG TAB PO SCH ×2 (09:00→21:00)
[2016-09-20 12:55] LABS: HEMOGLOBIN A1a 1.1 %; HEMOGLOBIN A1b 2.2 %; HEMOGLOBIN Ao 81.4 %; HEMOGLOBIN LA1C 2.1 %; HEMOGLOBIN P3 4.3 %
--- NOTE | 2016-09-20 13:00 | HHI.PR ---
Subjective Subjective Comments diminished responsiveness yesterday but better today dr Grant following him and work up in progress hypercoag profile pending multiple vascular events, ischemic and hemorrhagic ?tia vs seizure vs encephalopathy yest check eeg discussed with his and RN as well Active Medications Current Medications Medications (Trade) Dose Ordered Sig/Marcos Route Start Time Stop Time Status Last Admin (Cleviprex Inj) 50 ml @ 0 mls/hr TITRATE IV 09/14/16 23:30 09/18/16 00:30 (Lipitor) 80 mg HS PO 09/15/16 21:00 09/19/16 21:12 (Coreg) 6.25 mg BID PO 09/15/16 09:00 09/20/16 08:48 (Synthroid) 75 mcg DAILY@07 PO 09/15/16 07:00 09/20/16 06:00 (Cozaar) 100 mg DAILY PO 09/15/16 09:00 09/20/16 08:48 Tolterodine Tartrate 4 mg 4 mg DAILY PO 09/15/16 09:00 09/20/16 08:48 (NS 1000 ml Inj) 1,000 ml @ 84 mls/hr [id number] IV 09/15/16 00:45 09/19/16 22:52 (NS Flush) 2 ml UNSCH PRN IV FLUSH 09/15/16 00:45 (NS Flush) 2 ml BID IV FLUSH 09/15/16 09:00 09/19/16 21:00 (Tylenol) 650 mg Q6H PRN PO 09/15/16 00:45 09/20/16 01:13 ([place] 5-325 Mg) 1 tab Q4H PRN PO 09/15/16 00:45 (Morphine Inj) 2 mg Q2H PRN IV 09/15/16 00:45 (Protonix Inj) 40 mg DAILY IV 09/15/16 09:00 09/20/16 08:49 (Zofran Inj) 4 mg Q6H PRN IV 09/15/16 00:45 Miscellaneous Information 1 Q361D XX 09/15/16 00:45 (Chlorhexidine 2% Cloth) Taper DAILY@04 TOP 09/15/16 04:00 09/11/17 03:59 09/20/16 04:00 (Chlorhexidine 2% Cloth) 3 pack UNSCH PRN TOP 09/15/16 00:45 (Bela-Colace) 1 tab BID PO 09/15/16 09:00 09/19/16 21:12 (Milk Of Magnesia Liq) 30 ml Q12H PRN PO 09/15/16 00:45 (Senokot) 17.2 mg Q12H PRN PO 09/15/16 00:45 (Dulcolax Supp) 10 mg DAILY PRN RECTAL 09/15/16 00:45 (Lactulose Liq) 30 ml DAILY PRN PO 09/15/16 00:45 (D50w (Vial) Inj) 50 ml UNSCH PRN IV 09/15/16 00:45 (Glucagon Inj) 1 mg UNSCH PRN OTHER 09/15/16 00:45 (Trandate Inj) 10 mg Q4H PRN IV 09/15/16 01:00 09/18/16 03:45 (Apresoline Inj) 10 mg Q3H PRN IV PUSH 09/16/16 12:15 09/19/16 00:23 (Apresoline) 50 mg Q8HR PO 09/18/16 09:00 09/20/16 06:00 Allergies Allergies Coded Allergies Bactrim (Unverified Allergy, Severe, rash itch and patches, 09/14/16) Niacin (Unverified Allergy, Severe, redness,itching ,rash, 09/14/16) Uncoded Allergies crestor ( Allergy, Severe, muscle aches, 05/17/09) Exam I&O / VS 09/19/16 09/19/16 09/20/16 15:00 23:00 07:00 Intake Total 776 ml 807 ml 1802 ml Output Total 0 ml 100 ml Balance 776 ml 807 ml 1702 ml Intake Oral 100 ml 240 ml 1110 ml IV Total 676 ml 567 ml 692 ml Output Urine Total 100 ml Stool Total 0 ml # Voids 2 1 2 # Bowel Movements 0 1 Vital Signs Date Time Temp Pulse Resp B/P Pulse Ox O2 Delivery O2 Flow Rate FiO2 09/20/16 12:17 98 Room Air 09/20/16 12:15 98.8 109 25 152/75 96 09/20/16 08:27 93 09/20/16 07:57 95 21 09/20/16 06:00 93 09/20/16 04:00 99.7 88 20 117/69 94 09/20/16 04:00 88 09/20/16 02:00 107 09/20/16 00:00 99.0 107 23 137/83 97 09/20/16 00:00 107 09/19/16 22:00 98 09/19/16 22:00 23 09/19/16 20:00 99 09/19/16 20:00 98.4 105 23 124/63 97 09/19/16 19:47 97 09/19/16 19:00 97 Room Air 09/19/16 18:00 110 09/19/16 17:22 100.3 118 26 155/67 95 09/19/16 16:00 101.1 112 24 136/70 92 09/19/16 16:00 112 09/19/16 14:00 106 Objective Micro and Labs Laboratory Tests Test 09/19/16 09/20/16 14:00 05:08 White Blood Count 14.2 9.4 Red Blood Count 4.49 4.17 Hemoglobin 14.0 13.2 Hematocrit 39.8 36.9 Mean Corpuscular Volume 88.7 88.5 Mean Corpuscular Hemoglobin 31.2 31.6 Mean Corpuscular Hemoglobin 35.2 35.7 Concent Red Cell Distribution Width 13.4 13.4 Platelet Count 158 125 Mean Platelet Volume 8.8 9.0 Neutrophils (%) (Auto) 83.8 72.9 Lymphocytes (%) (Auto) 9.9 19.3 Monocytes (%) (Auto) 5.9 7.1 Eosinophils (%) (Auto) 0.0 0.2 Basophils (%) (Auto) 0.4 0.5 Neutrophils # (Auto) 11.9 6.8 Lymphocytes # (Auto) 1.4 1.8 Monocytes # (Auto) 0.8 0.7 Eosinophils # (Auto) 0.0 0.0 Basophils # (Auto) 0.1 0.0 CBC Comment DIFF FINAL AUTO DIFF Differential Comment FINAL DIFF MANUAL Lactic Acid Level 1.4 Differential Total Cells 100 Counted Neutrophils % (Manual) 75 Band Neutrophils % 12 Lymphocytes % 13 Neutrophils # (Manual) 8.2 Platelet Estimate LOW Platelet Morphology Comment NORMAL Red Cell Morphology Comment NORMAL Date/Time Procedure Status Source Growth 09/19/16 14:00 Aerobic Blood Culture - Preliminary Resulted Blood Peripheral Staphylococcus Aureus 09/19/16 14:00 Anaerobic Blood Culture - Preliminary Resulted Gram Positive Cocci Preet Nino MD Sep 20, 2016 13:00
[2016-09-20 13:38] LABS: BICARBONATE 26.8 MEQ/L (21.0-32.0)
--- NOTE | 2016-09-20 17:21 | HHI.PR ---
Subjective Remarks Sitting on the chair he is less confused today but still not oriented to time, he is oriented to person and place Discussed with the at the bedside Blood culture was positive for gram-positive cocci we started vancomycin awaiting 2-D echo result ? Urinary source Patient had a bowel movement today after 5 days of being constipated as per his Objective Vitals Vital Signs Date Time Temp Pulse Resp B/P Pulse Ox O2 Delivery O2 Flow Rate FiO2 09/20/16 15:28 103 09/20/16 12:17 98 Room Air 09/20/16 12:15 98.8 109 25 152/75 96 09/20/16 08:27 93 09/20/16 07:57 95 21 09/20/16 06:00 93 09/20/16 04:00 99.7 88 20 117/69 94 09/20/16 04:00 88 09/20/16 02:00 107 09/20/16 00:00 99.0 107 23 137/83 97 09/20/16 00:00 107 09/19/16 22:00 98 09/19/16 22:00 23 09/19/16 20:00 99 09/19/16 20:00 98.4 105 23 124/63 97 09/19/16 19:47 97 09/19/16 19:00 97 Room Air 09/19/16 18:00 110 09/19/16 17:22 100.3 118 26 155/67 95 I/O 09/19/16 09/19/16 09/19/16 09/20/16 09/20/16 09/20/16 07:00 15:00 23:00 07:00 15:00 23:00 Intake Total 669 ml 776 ml 807 ml 1802 ml 460 ml Output Total 600 ml 0 ml 100 ml Balance 69 ml 776 ml 807 ml 1702 ml 460 ml Intake Oral 120 ml 100 ml 240 ml 1110 ml IV Total 549 ml 676 ml 567 ml 692 ml 460 ml Output Urine Total 600 ml 100 ml Stool Total 0 ml # Voids 1 2 1 2 2 # Bowel Movements 0 0 1 Result Diagram: 09/20/16 0508 09/20/16 1248 Objective Remarks GENERAL: This is a well-nourished, well-developed patient, in no apparent distress. SKIN: No rashes, warm and dry HEAD: Atraumatic. Normocephalic. EYES: Pupils equal round and reactive. Extraocular motions intact. No scleral icterus. ENT: Nose without bleeding, or drainage, Airway patent. NECK: Trachea midline. Supple CARDIOVASCULAR: Regular tachycardia without murmurs, gallops, or rubs. RESPIRATORY: Fair air entry bilaterally. No wheezes, rales, or rhonchi. GASTROINTESTINAL: Abdomen soft, non-tender, nondistended. Positive bowel sounds MUSCULOSKELETAL: Extremities without clubbing, cyanosis, or edema. Pedal pulses appreciated NEUROLOGICAL: Awake and alert oriented to place and person not time in general better than yesterday. Right upper and lower extremity 4 out of 5, left upper and lower extremity 2-3 out of 5. Normal speech but slow. A/P Problem List: (1) Nontraumatic thalamic hemorrhage ICD Code: I61.9 Status: Acute (2) Hypertension ICD Code: I10 Status: Acute (3) Dyslipidemia ICD Code: E78.5 Status: Acute (4) Diabetes mellitus ICD Code: E11.9 Status: Acute (5) FRANCHESKA (obstructive sleep apnea) ICD Code: G47.33 Status: Acute (6) Gastroesophageal reflux disease ICD Code: K21.9 Status: Acute (7) Hypothyroidism ICD Code: E03.9 Status: Acute (8) Acute kidney injury ICD Code: N17.9 Status: Acute (9) History of CVA (cerebrovascular accident) ICD Code: Z86.73 Status: Acute Assessment and Plan 09/19: Per the and the nurse significant change in status including left upper and lower worsening weakness, blood pressure improved after adding hydralazine, tachycardia 110/120, need to rule out any underlying sepsis considering low-grade fever of 100 today >> Stat Accu-Chek has been done showing 170 >> Check stat CT without contrast assess bleeding, contraindication for TPA due to this >> Neuro check every hour >> Placed call for neurology to reassess Discussed with nurse, , reviewed previous imagings , previous note from other attending and specialist, decision made to hold on discharge today and workup worsening neuro status >> Neurosurgery also notified stable follow on CT had >> Check lactic acid and CBC stat, blood culture 09/20: Blood culture positive for gram-positive cocci sepsis? Urine source>> started vancomycin, 2-D echo pending, consider ID consult Continue monitoring, neurology following A/P: Left superior anterior thalamic CVA History CVA with old supratentorial CV is noted Acute right MCA cortical infarct -neg GABY and two week holter neg -Per neurologist he thinks that the hemorrhagic infarct was from the aspirin and Plavix and that he probably had a silent CVA small left in the last 1 month that was not present at the other hospital. -Neurologist recommends Coumadin and to wait 1 week before starting medication. -MRV negative and hypocoagulable screening pending. -Per neurologist okay for blood pressure to run 120-160. -PT/OT/ST following Hypertension/Dyslipidemia/FRANCHESKA/GERD/urinary incontinence/hypothyroidism/diabetes On losartan 100 mg daily and Coreg 6.25 mg twice a day at home for hypertension. Continue hydralazine started today and better control of BP. On Crestor 80 mg at night for dyslipidemia. Hold Plavix Continue oxybutynin 10 mg by mouth daily. Continue Levoxyl 75 mg by mouth daily. Check TSH Hold metformin/glipizide 1000/5 one tablet twice a day. Sliding scale insulin Accu-Cheks to maintain euglycemia/low regimen Prophylaxis - GI - Protonix - DVT - SCD/from) prophylaxis contra indicated status post bleed Problem Qualifiers (1) Hypertension: Qualified Code: I10 - Essential hypertension (2) Diabetes mellitus: Qualified Code: E11.8 - Type 2 diabetes mellitus with complication, without long-term current use of insulin (3) Gastroesophageal reflux disease: Qualified Code: K21.9 - Gastroesophageal reflux disease, esophagitis presence not specified (4) Hypothyroidism: Qualified Code: E03.9 - Hypothyroidism, unspecified type Luciana Heck MD Sep 20, 2016 17:21
[2016-09-20] MEDS ORDERED: Vancomycin Consult Pharmacy 1 EA OTHER SCH (19:45)
[2016-09-20] MEDS ORDERED: POTASSIUM CHLORIDE 20 MEQ CONTROLLED RELEASE TAB PO ONE (19:45)
[2016-09-20] MEDS ORDERED: VANCOMYCIN 1,000 MG/NS 250 ML IV ONE ×2 (20:00)
[2016-09-20] MEDS: SODIUM CHLORIDE 0.9% FLUSH 10 ML FLUSH IV FLUSH SCH (21:00)
[2016-09-20] MEDS ORDERED: NS + KCL 20 MEQ INJ 1,000 ML IV SCH (21:00)
[2016-09-20] MEDS: hydrALAZINE HCL 20 MG/ML VIAL IV PUSH PRN (22:25)
[2016-09-20] MEDS: ATORVASTATIN 80 MG TAB PO SCH (22:43)
[2016-09-21] VITALS (14 sets, daily range): BP systolic 129–152; BP diastolic 69–86; PULSE 87–108; RESP 18–22; TEMP 98.5–99.4; O2SAT 92–97
[2016-09-21] MEDS: CHLORHEXIDINE GLUCONATE 2 % 1 PACK (2 CLOTHS) TOP SCH (04:00)
[2016-09-21] MEDS: hydrALAZINE HCL 20 MG/ML VIAL IV PUSH PRN (04:59)
[2016-09-21] MEDS: hydrALAZINE HCL 50 MG TAB PO SCH ×3 (05:16→21:08)
[2016-09-21] MEDS: LEVOTHYROXINE SODIUM 75 MCG TAB PO SCH (06:13)
[2016-09-21] MEDS: INSULIN NovoLIN REGULAR SUPPLEMENTAL SCALE SQ SCH ×4 (06:13→21:20)
[2016-09-21] MEDS: SODIUM CHLOR 0.9% 1000 ML INJ 1,000 ML IV SCH ×2 (08:06→21:21)
[2016-09-21] MEDS: SODIUM CHLORIDE 0.9% FLUSH 10 ML FLUSH IV FLUSH SCH ×2 (08:07→21:20)
[2016-09-21] MEDS: LOSARTAN 50 MG TAB PO SCH (08:07)
[2016-09-21] MEDS: TOLTERODINE TARTRATE 4 MG CAP LA PO SCH (08:07)
[2016-09-21] MEDS: VANCOMYCIN 1,000 MG/NS 250 ML IV SCH ×4 (08:07→21:19)
[2016-09-21] MEDS: PANTOPRAZOLE SODIUM 40 MG VIAL IV SCH (08:07)
[2016-09-21] MEDS: DOCUSATE SODIUM 50 MG/SENNA 8.6 MG TAB PO SCH ×2 (08:08→21:09)
[2016-09-21] MEDS: CARVEDILOL 6.25 MG TAB PO SCH ×2 (08:08→21:08)
--- NOTE | 2016-09-21 10:03 | HHI.PR ---
Subjective Remarks sr Objective Vital Signs Date Time Temp Pulse Resp B/P Pulse Ox O2 Delivery O2 Flow Rate FiO2 09/21/16 09:14 99.4 108 22 140/73 93 09/21/16 09:14 108 09/21/16 07:59 92 21 09/21/16 07:00 92 Room Air 21 09/21/16 06:00 98 09/21/16 04:00 98.5 95 22 152/77 92 09/21/16 04:00 95 09/21/16 02:00 106 09/21/16 00:00 99.4 102 21 145/69 95 09/21/16 00:00 103 09/20/16 22:00 108 09/20/16 20:13 95 09/20/16 20:00 118 09/20/16 20:00 99.5 118 25 156/71 94 09/20/16 19:00 110 09/20/16 19:00 96 Room Air 09/20/16 19:00 99.5 110 25 156/72 96 09/20/16 15:28 103 09/20/16 12:17 98 Room Air 09/20/16 12:15 98.8 109 25 152/75 96 I/O 09/20/16 09/20/16 09/20/16 09/21/16 09/21/16 09/21/16 07:00 15:00 23:00 07:00 15:00 23:00 Intake Total 1802 ml 1818 ml 1068 ml Output Total 100 ml 450 ml 750 ml Balance 1702 ml 1368 ml 318 ml Intake Oral 1110 ml 160 ml 240 ml IV Total 692 ml 1658 ml 828 ml Output Urine Total 100 ml 450 ml 750 ml # Voids 2 2 1 # Bowel Movements 1 0 0 Result Diagram: 09/20/16 0508 09/20/16 1248 Objective Remarks alert [facility] 07/24 face sym Assessment and Plan Assessment and Plan imp now another acute r mca cortical infarct and similar in 05/08 i reviewed notes [facility] neg marylou and acc to neg two week holter mult deep and cortical cva i think the left deep ich is a hemorrhagic infarct from the asa and plavix he probably had a silent cva small left in last one month as not present on last ct [facility] he needs coumadin and i think considering the blood on ct we should wait a week to start i dw check mrv and hyper screen ok to floor ok to run bp 120-160 oob // 09/18/16 no change bps 150s left small ich will start coumadin one week he is ok to go to either home if walking well or rehab oob ambulate with PT plz inc his oral meds so we can get him off iv deborah and dced 09/21/16 lethargic yes unclear why temp on 1.1 on 09/19 bld cx positive on vanco plan is to recheck mri make sure no new cva and check eeg why he got septic i do not know he had marylou neg in 05/08 echo neg here defer to med team if need another echo recheck mri eeg as above ct yest still shows evolving left deep ich Pio Neil MD Sep 21, 2016 10:03
[2016-09-21] MEDS ORDERED: DIATRIZOATE MEGLUM/DIATRIZOATE SOD 9 ML CUP PO ONE (12:00)
--- NOTE | 2016-09-21 12:26 | MB ---
cc: CHELSEA ULLOA MD DATE OF CONSULTATION 09/21/[address] Heck REASON Sepsis, bacteremia. HISTORY OF PRESENT ILLNESS This is a 56-year-old white male who presented to the emergency department on 09/14/2016. The patient was diagnosed with CVA. He was noted to have left facial droop and increased confusion and also with dragging of the left foot. The patient had an image of the brain which revealed a left basal ganglia, superior-anterior bleed. He was afebrile on admission and the white blood cell count was normal on admission. During evaluation the patient was found to have abnormal urinalysis on 09/15 and a urine culture was performed. The urine culture came back showing Staph aureus 10,000-15,000 colonies and also mixed gram-positive marzena. The patient remained afebrile. He was not started on IV antibiotics or given antibiotics up until 09/20. He had temperature elevation on 09/19 of 101.1 degrees and blood cultures were taken and all four bottles have gram-positive cocci. One bottle has been identified as Staph aureus thus far. The patient's white blood cell count climbed to 14.2 on 09/19. He also had increased heart rate of 118. He was started on IV vancomycin on 09/19. CT scan of the head is on 09/19 showed evolving small thalamic hemorrhage on the left. The patient awakened to his name. However, he is very somnolent and quickly drifts to sleep. I awakened him a few times to ask simple questions and he indicates that he had no chills, sweats, headaches or nausea. His temperature max yesterday was 99.7. The patient had a 2-D echocardiogram on 09/17 which showed structurally normal mitral valve and no aortic valve stenosis or regurgitation and structurally normal tricuspid valve. This consultation is requested for antibiotic management. PAST MEDICAL HISTORY 1. CVA in 2008 and also in 2017. 2. Hypertension. 3. Dyslipidemia. 4. Diabetes mellitus. 5. Gastroesophageal reflux disease. 6. Obstructive sleep apnea. ALLERGIES BACTRIM. NIACIN. CRESTOR. MEDICATIONS 1. Vancomycin. 2. Apresoline. 3. Lipitor. 4. Coreg. 5. Cozaar. 6. Detrol LA. 7. Protonix. 8. Bela-Colace. 9. Synthroid. 10. Sliding scale insulin. SOCIAL HISTORY No tobacco, no alcohol. No illicit drugs. FAMILY HISTORY Unable to obtain because of the patient's current condition. REVIEW OF SYSTEMS Difficult to obtain because of the patient's current condition. He is very somnolent. PHYSICAL EXAMINATION GENERAL: This is a well-developed, well-nourished male in no acute distress. He is somnolent. VITAL SIGNS: Temperature 99., BP 140/73, respirations 22, heart rate 108. HEENT. Unable to fully assess. The head is atraumatic. No icterus. Oropharynx - Moist mucosa without lesions. NECK: Supple without adenopathy or mass. HEART: Regular S1 and S2. LUNGS: Clear to auscultation. ABDOMEN: Bowel sounds present. Soft. No tenderness appreciated. No masses palpable. RECTAL: Not performed. EXTREMITIES: No clubbing, cyanosis or edema. NEURO: Unable to fully assess. The patient moves all four extremities. SKIN: No rash. LABORATORY DATA WBC 9.4, platelets 125,000, hemoglobin 13.2, 75% neutrophils, 12% bands. Creatinine is 0.72, BUN 18, sodium 135. IMPRESSION 1. Bacteremia with inpatient with sepsis. Parameters including elevated heart rate, fever, elevated white blood cell count at the time of the blood culture being obtained. Positive blood cultures due to Staph aureus preliminary identified in one of four bottles. 2. Urinary tract infection due to Staph aureus. Patient with elevated white cells in the urine and a small amount of leukocyte esterase and Staph aureus recovered from the urine. 3. CVA. Patient with thalamic hemorrhage on the left on the left on imaging. RECOMMENDATIONS 1. Continue vancomycin. 2. Monitor the staph in the blood cultures and follow sensitivities. 3. Monitor temperature and clinical status. Thank you this consultation. The patient's progress will be monitored and further recommendations will be made on followup if necessary. Chelsea Ulloa MD FD/JOSE /11:34 AM /12:13 PM
--- NOTE | 2016-09-21 12:48 | MG ---
cc: CHAPO FATIMA M.D., DALIA M.D. Lab No: [id number] Date: 09/21/2016 Age: 56 Sex: M Room 1332. Photic stimulation. Awake, drowsy, asleep study. CT 09/19/2016 showed evolving small thalamic hemorrhage on the left. No other acute findings. This is a 56-year-old man with right MCA infarct, now shows left thalamic hemorrhage. History of stroke in 2007 and 2016. On anticoagulant. Listed now on vancomycin, Apresoline, Coreg, Cozaar, Detrol, Protonix, Synthroid, insulin. DESCRIPTION OF RECORD There is quite a bit of artifact but a mild slowing predominately of 7 to 7.5 Hz, 20-40 microvolt background consistent with a theta frequency. A lot of muscle artifact. There may be an arrhythmia seen in the EKG portion as well. At times the patient falls asleep. Towards the midportion of the EEG there is some delta frequency noted then by epoch 95 there may be some generalized sharp wave activity bilateral, not continuous. Subsequently photic stimulation is performed with a posterior driving response. I do not appreciate any other sharps. IMPRESSION 1. Abnormal EEG due to some mild background slowing, may be encephalopathic. 2. One epoch generalized bilateral sharp wave activity may be a focus of epileptogenicity in this patient. This was just in one epoch however. RECOMMENDATIONS Clinical correlation. MD ALTAF Brooks/CODIE /12:36 PM /12:44 PM
[2016-09-21 16:10] LABS: BICARBONATE 26.5 MEQ/L (21.0-32.0); MAGNESIUM 1.8 MG/DL (1.5-2.5); POTASSIUM 3.4 MEQ/L (3.5-5.1)
--- NOTE | 2016-09-21 16:18 | RADRPT ---
EXAM DATE/TIME: 09/21/2016 15:53 [facility] COMPARISON: No previous studies available for comparison. INDICATIONS : Diffuse abdomen pain today. ORAL CONTRAST: Prescribed oral contrast ingested. RADIATION DOSE: 9.96 CTDIvol (mGy) MEDICAL HISTORY : Hypertension. diabetes SURGICAL HISTORY : None. ENCOUNTER: Initial ACUITY: 1 day PAIN SCALE: 5/10 LOCATION: Bilateral abdomen TECHNIQUE: Volumetric scanning of the abdomen and pelvis was performed. Using automated exposure control and ad justment of the mA and/or kV according to patient size, radiation dose was kept as low as reasonably achievable to obtain optimal diagnostic quality images. DICOM format image data is available electro nically for review and comparison. The lack of IV contrast limits the diagnosis for certain organ pa thology. FINDINGS: LOWER LUNGS: Bibasilar atelectasis. LIVER: Homogeneous density without lesion. There is no dilation of the biliary tree. No calcified gallston es. SPLEEN: Normal size without lesion. PANCREAS: Within normal limits. KIDNEYS: Normal in size and shape. There is no mass, stone, or hydronephrosis. ADRENAL GLANDS: Within normal limits. VASCULAR: There is no aortic aneurysm. BOWEL/MESENTERY: The stomach, small bowel, and colon demonstrate no acute abnormality. There is no free intraperitone al air or fluid. The appendix is unremarkable. There is stool throughout the colon. No inflammatory c hanges are demonstrated. ABDOMINAL WALL: Within normal limits. RETROPERITONEUM: There is no lymphadenopathy. BLADDER: No wall thickening or mass. The bladder appears to be distended. REPRODUCTIVE: The prostate measures 4.9 cm. INGUINAL: There is no lymphadenopathy or hernia. MUSCULOSKELETAL: Within normal limits for patient age. CONCLUSION: 1. The urinary bladder appears to be distended. 2. The prostate is diffusely enlarged at 4.9 cm. 3. Bibasilar atelectasis. 4. No acute abdominal or pelvic pathology. Jorge Lima MD on September 21, 2016 at 16:13 Board Certified Radiologist. This report was verified electronically.
--- NOTE | 2016-09-21 16:43 | HHI.PR ---
Subjective Remarks Patient doing slightly better mentation orosco Oriented to person and place No chest pain lightheaded or dizziness or short of breath Discussed with the Positive blood culture with + GC>> will do CT abdomen and pelvic rule out underlying abscess, continue vancomycin, awaiting 2-D echo, repeat BMP mag and possible, consult ID Objective Vitals Vital Signs Date Time Temp Pulse Resp B/P Pulse Ox O2 Delivery O2 Flow Rate FiO2 09/21/16 16:00 90 09/21/16 16:00 99.0 90 21 132/74 97 09/21/16 14:00 87 09/21/16 12:00 95 09/21/16 12:00 99.0 95 18 129/77 93 09/21/16 10:00 101 09/21/16 09:14 99.4 108 22 140/73 93 09/21/16 09:14 108 09/21/16 07:59 92 21 09/21/16 07:00 92 Room Air 21 09/21/16 06:00 98 09/21/16 04:00 98.5 95 22 152/77 92 09/21/16 04:00 95 09/21/16 02:00 106 09/21/16 00:00 99.4 102 21 145/69 95 09/21/16 00:00 103 09/20/16 22:00 108 09/20/16 20:13 95 09/20/16 20:00 118 09/20/16 20:00 99.5 118 25 156/71 94 09/20/16 19:00 110 09/20/16 19:00 96 Room Air 09/20/16 19:00 99.5 110 25 156/72 96 I/O 09/20/16 09/20/16 09/20/16 09/21/16 09/21/16 09/21/16 07:00 15:00 23:00 07:00 15:00 23:00 Intake Total 1802 ml 1818 ml 1068 ml 2092 ml Output Total 100 ml 450 ml 750 ml 400 ml Balance 1702 ml 1368 ml 318 ml 1692 ml Intake Oral 1110 ml 160 ml 240 ml 1146 ml IV Total 692 ml 1658 ml 828 ml 946 ml Output Urine Total 100 ml 450 ml 750 ml 400 ml # Voids 2 2 1 # Bowel Movements 1 0 0 0 Result Diagram: 09/20/16 0508 09/21/16 6838 Objective Remarks GENERAL: This is a well-nourished, well-developed patient, in no apparent distress. SKIN: No rashes, warm and dry HEAD: Atraumatic. Normocephalic. EYES: Pupils equal round and reactive. Extraocular motions intact. No scleral icterus. ENT: Nose without bleeding, or drainage, Airway patent. NECK: Trachea midline. Supple CARDIOVASCULAR: Regular tachycardia without murmurs, gallops, or rubs. RESPIRATORY: Fair air entry bilaterally. No wheezes, rales, or rhonchi. GASTROINTESTINAL: Abdomen soft, non-tender, nondistended. Positive bowel sounds MUSCULOSKELETAL: Extremities without clubbing, cyanosis, or edema. Pedal pulses appreciated NEUROLOGICAL: Awake and alert oriented to place and person not time Right upper and lower extremity 4 out of 5, left upper and lower extremity 2-3 out of 5. Normal speech but slow. A/P Problem List: (1) Nontraumatic thalamic hemorrhage ICD Code: I61.9 Status: Acute (2) Hypertension ICD Code: I10 Status: Acute (3) Dyslipidemia ICD Code: E78.5 Status: Acute (4) Diabetes mellitus ICD Code: E11.9 Status: Acute (5) FRANCHESKA (obstructive sleep apnea) ICD Code: G47.33 Status: Acute (6) Gastroesophageal reflux disease ICD Code: K21.9 Status: Acute (7) Hypothyroidism ICD Code: E03.9 Status: Acute (8) Acute kidney injury ICD Code: N17.9 Status: Acute (9) History of CVA (cerebrovascular accident) ICD Code: Z86.73 Status: Acute Assessment and Plan 09/19: Per the and the nurse significant change in status including left upper and lower worsening weakness, blood pressure improved after adding hydralazine, tachycardia 110/120, need to rule out any underlying sepsis considering low-grade fever of 100 today >> Stat Accu-Chek has been done showing 170 >> Check stat CT without contrast assess bleeding, contraindication for TPA due to this >> Neuro check every hour >> Placed call for neurology to reassess Discussed with nurse, , reviewed previous imagings , previous note from other attending and specialist, decision made to hold on discharge today and workup worsening neuro status >> Neurosurgery also notified stable follow on CT had >> Check lactic acid and CBC stat, blood culture 09/20: Blood culture positive for gram-positive cocci sepsis? Urine source>> started vancomycin, 2-D echo pending, appreciate ID consultation Continue monitoring, neurology following 09/21: Positive blood culture with + GC>> will do CT abdomen and pelvic rule out underlying abscess, continue vancomycin, awaiting 2-D echo, repeat BMP mag and possible, consult ID A/P: Left superior anterior thalamic CVA History CVA with old supratentorial CV is noted Acute right MCA cortical infarct -neg GABY and two week holter neg -Per neurologist he thinks that the hemorrhagic infarct was from the aspirin and Plavix and that he probably had a silent CVA small left in the last 1 month that was not present at the other hospital. -Neurologist recommends Coumadin and to wait 1 week before starting medication. -MRV negative and hypocoagulable screening pending. -Per neurologist okay for blood pressure to run 120-160. -PT/OT/ST following Hypertension/Dyslipidemia/FRANCHESKA/GERD/urinary incontinence/hypothyroidism/diabetes On losartan 100 mg daily and Coreg 6.25 mg twice a day at home for hypertension. Continue hydralazine started today and better control of BP. On Crestor 80 mg at night for dyslipidemia. Hold Plavix Continue oxybutynin 10 mg by mouth daily. Continue Levoxyl 75 mg by mouth daily. Check TSH Hold metformin/glipizide 1000/5 one tablet twice a day. Sliding scale insulin Accu-Cheks to maintain euglycemia/low regimen Prophylaxis - GI - Protonix - DVT - SCD/from) prophylaxis contra indicated status post bleed Problem Qualifiers (1) Hypertension: Qualified Code: I10 - Essential hypertension (2) Diabetes mellitus: Qualified Code: E11.8 - Type 2 diabetes mellitus with complication, without long-term current use of insulin (3) Gastroesophageal reflux disease: Qualified Code: K21.9 - Gastroesophageal reflux disease, esophagitis presence not specified (4) Hypothyroidism: Qualified Code: E03.9 - Hypothyroidism, unspecified type Luciana Heck MD Sep 21, 2016 16:43
--- NOTE | 2016-09-21 17:43 | RADRPT ---
EXAM DATE/TIME: 09/21/2016 15:32 This report includes an Addendum and supersedes previous reports for this exam. [facility] COMPARISON: CT BRAIN W/O CONTRAST, September 19, 2016, 12:45. INDICATIONS : CVA. Evaluate for new CVA. MEDICAL HISTORY : Stroke Hypertension. Diabetes mellitus type 2. SURGICAL HISTORY : Cataract. ENCOUNTER: Subsequent ACUITY: 3 day PAIN SCORE: 0/10 LOCATION: head TECHNIQUE: Multiplanar, multisequence MRI of the brain was performed without contrast. FINDINGS: CEREBRUM: The ventricles are normal for age. There is bilateral cortical atrophy and chronic white matter atkinson ges throughout the white matter tracks. No evidence of midline shift or mass lesion. There is a small punctate hemorrhage in the left thalamus. This was noted on patient's recent CT. No extraaxial fluid collections are seen. The pituitary gland and suprasellar cistern are normal in configuration. WHITE MATTER: There are chronic white matter changes noted bilaterally. POSTERIOR FOSSA: There appears to be a tiny hemorrhage in the central portion the midbrain. This may be faintly visibl e on the prior CT scan of the brain. DIFFUSION IMAGING: There is a small area of restricted diffusion in the mid right parietal lobe adjacent to the lateral horn of the right ventricle. This indicates a small focal acute infarct. EXTRACRANIAL: The visualized portions of the orbits and paranasal sinuses are unremarkable. CONCLUSION: 1. Small area restricted diffusion in the mid right parietal lobe indicating a small acute infarct. 2. Small punctate hemorrhage in the central portion of the midbrain and left thalamic area. 3. Diffuse bilateral cortical atrophy and chronic white matter changes are noted bilaterally. Jorge Lima MD on September 21, 2016 at 17:35 Board Certified Radiologist. This report was verified electronically. ADDENDUM: COMPARISON: MRI BRAIN W & W/O CONTRAST, September 16, 2016, 15:51. The MRI of the brain of 09/21/2016 is compared to the prior MRI of 09/16/2016. There's been no new or si gnificant changes with the overall appearance of the brain compared to the prior examination. The foc al area of acute infarction in the mid right parietal lobe on the diffusion-weighted images are stabl e. The punctate hemorrhage in the left thalamic area and midbrain are also stable. Jorge Lima MD on September 23, 2016 at 8:46 Board Certified Radiologist. This report was verified electronically.
[2016-09-21] MEDS: ATORVASTATIN 80 MG TAB PO SCH (21:08)
[2016-09-22] VITALS (13 sets, daily range): BP systolic 143–159; BP diastolic 72–98; PULSE 79–108; RESP 12–26; TEMP 97.5–99.1; O2SAT 92–99
[2016-09-22] MEDS: CHLORHEXIDINE GLUCONATE 2 % 1 PACK (2 CLOTHS) TOP SCH (04:00)
[2016-09-22 04:15] LABS: AUTOMATED NEUTROPHIL # 4.8 TH/MM3 (1.8-7.7); BASOPHIL % 0.4 % (0.0-2.0); EOSINOPHIL # 0.2 TH/MM3 (0-0.4); EOSINOPHIL % 1.9 % (0.0-4.0); HEMATOCRIT 34.4 % (39.0-51.0); HEMO FLAGS DIFF FINAL; LYMPH % 30.3 % (9.0-44.0); LYMPHOCYTE # 2.6 TH/MM3 (1.0-4.8); MEAN CELL VOLUME 88.6 FL (80.0-100.0); MEAN CORPUSCULAR HEMOGLOBIN 30.7 PG (27.0-34.0); MEAN CORPUSCULAR HGB CONC 34.6 % (32.0-36.0); MONO % 10.8 % (0.0-8.0); NEUT % 56.6 % (16.0-70.0); PLATELET COUNT 126 TH/MM3 (150-450); RED BLOOD COUNT 3.89 MIL/MM3 (4.50-5.90); RED CELL DISTRIBUTION WIDTH 13.1 % (11.6-17.2); WHITE BLOOD COUNT 8.5 TH/MM3 (4.0-11.0)
[2016-09-22 04:38] LABS: BICARBONATE 26.9 MEQ/L (21.0-32.0); POTASSIUM 3.3 MEQ/L (3.5-5.1)
[2016-09-22] MEDS: INSULIN NovoLIN REGULAR SUPPLEMENTAL SCALE SQ SCH ×4 (05:34→21:19)
[2016-09-22] MEDS: LEVOTHYROXINE SODIUM 75 MCG TAB PO SCH (05:35)
[2016-09-22] MEDS: hydrALAZINE HCL 50 MG TAB PO SCH ×3 (05:35→21:04)
[2016-09-22 07:52] LABS: VITAMIN B6 6.3 ng/mL (2.1-21.7)
[2016-09-22] MEDS: PANTOPRAZOLE SODIUM 40 MG VIAL IV SCH (08:29)
[2016-09-22] MEDS: SODIUM CHLORIDE 0.9% FLUSH 10 ML FLUSH IV FLUSH SCH ×2 (08:29→21:06)
[2016-09-22] MEDS: TOLTERODINE TARTRATE 4 MG CAP LA PO SCH (08:29)
[2016-09-22] MEDS: SODIUM CHLOR 0.9% 1000 ML INJ 1,000 ML IV SCH ×2 (08:29→21:06)
[2016-09-22] MEDS: CARVEDILOL 6.25 MG TAB PO SCH ×2 (08:30→21:05)
[2016-09-22] MEDS: DOCUSATE SODIUM 50 MG/SENNA 8.6 MG TAB PO SCH ×2 (08:30→21:00)
[2016-09-22] MEDS: LOSARTAN 50 MG TAB PO SCH (08:30)
[2016-09-22] MEDS ORDERED: PHARMACY ORDERED LAB ONE (08:45)
[2016-09-22] MEDS: ceFAZolin 2 GM PREMIX 50 ML IV SCH ×2 (10:43→17:31)
--- NOTE | 2016-09-22 12:00 | HHI.IDPN ---
Note Infectious Disease Note Patient is up in chair. feels okay denies chills. No complaints. Afebrile. Patient's notes that he has had urinary hesitancy. Seen for positive blood cultures. Diagnosed with thalamic stroke this admission. PAST MEDICAL HISTORY 1. CVA in 2008 and also in 2017. 2. Hypertension. 3. Dyslipidemia. 4. Diabetes mellitus. 5. Gastroesophageal reflux disease. 6. Obstructive sleep apnea. ALLERGIES BACTRIM. NIACIN. CRESTOR. ANTIBIOTICS 1. Vancomycin. OBJECTIVE: Vital Signs Date Time Temp Pulse Resp B/P Pulse Ox O2 Delivery O2 Flow Rate FiO2 09/22/16 10:00 108 09/22/16 08:00 100 09/22/16 08:00 99.1 79 26 150/98 96 09/22/16 07:00 97 Room Air 09/22/16 06:00 97 09/22/16 04:00 98 09/22/16 04:00 98.3 98 18 153/73 92 09/22/16 02:00 88 09/22/16 00:00 99.0 90 20 143/76 97 09/22/16 00:00 90 09/21/16 22:00 90 09/21/16 20:00 98.6 96 21 145/86 95 09/21/16 20:00 96 09/21/16 19:30 94 21 09/21/16 19:00 96 Room Air 09/21/16 18:00 93 09/21/16 16:00 90 09/21/16 16:00 99.0 90 21 132/74 97 09/21/16 14:00 87 09/21/16 12:00 95 09/21/16 12:00 99.0 95 18 129/77 93 09/21/16 09/21/16 09/22/16 15:00 23:00 07:00 Intake Total 2092 ml 732 ml 1020 ml Output Total 400 ml 800 ml Balance 1692 ml -68 ml 1020 ml Intake Oral 1146 ml 480 ml 120 ml IV Total 946 ml 252 ml 900 ml Output Urine Total 400 ml 800 ml # Voids 4 # Bowel Movements 0 0 0 Laboratory Tests Test 09/22/16 03:32 White Blood Count 8.5 TH/MM3 Red Blood Count 3.89 MIL/MM3 Hemoglobin 11.9 GM/DL Hematocrit 34.4 % Mean Corpuscular Volume 88.6 FL Mean Corpuscular Hemoglobin 30.7 PG Mean Corpuscular Hemoglobin 34.6 % Concent Red Cell Distribution Width 13.1 % Platelet Count 126 TH/MM3 Mean Platelet Volume 9.2 FL Neutrophils (%) (Auto) 56.6 % Lymphocytes (%) (Auto) 30.3 % Monocytes (%) (Auto) 10.8 % Eosinophils (%) (Auto) 1.9 % Basophils (%) (Auto) 0.4 % Neutrophils # (Auto) 4.8 TH/MM3 Lymphocytes # (Auto) 2.6 TH/MM3 Monocytes # (Auto) 0.9 TH/MM3 Eosinophils # (Auto) 0.2 TH/MM3 Basophils # (Auto) 0.0 TH/MM3 CBC Comment DIFF FINAL Differential Comment Laboratory Tests Test 09/20/16 09/21/16 09/22/16 12:48 14:40 03:32 Sodium Level 135 MEQ/L 138 MEQ/L 139 MEQ/L Potassium Level 3.0 MEQ/L 3.4 MEQ/L 3.3 MEQ/L Chloride Level 102 MEQ/L 103 MEQ/L 104 MEQ/L Carbon Dioxide Level 26.8 MEQ/L 26.5 MEQ/L 26.9 MEQ/L Anion Gap 6 MEQ/L 9 MEQ/L 8 MEQ/L Blood Urea Nitrogen 18 MG/DL 15 MG/DL 19 MG/DL Creatinine 0.72 MG/DL 0.64 MG/DL 0.68 MG/DL Estimat Glomerular Filtration 113 ML/MIN 129 ML/MIN 121 ML/MIN Rate Random Glucose 259 MG/DL 234 MG/DL 235 MG/DL Calcium Level 8.6 MG/DL 8.3 MG/DL 7.9 MG/DL Phosphorus Level 2.4 MG/DL Magnesium Level 1.8 MG/DL Microbiology Date/Time Procedure Status Source Growth 09/19/16 13:50 Aerobic Blood Culture - Final Complete Blood Peripheral Staphylococcus Aureus 09/19/16 13:50 Anaerobic Blood Culture - Final Complete Staphylococcus Aureus 09/19/16 14:00 Aerobic Blood Culture - Final Complete Blood Peripheral Staphylococcus Aureus 09/19/16 14:00 Anaerobic Blood Culture - Final Complete Staphylococcus Aureus IMAGING: Brain MRI 09/21/16 0000 Signed Impressions: Service Date/Time: Wednesday, September 21, 2016 15:32 - CONCLUSION: 1. Small area restricted diffusion in the mid right parietal lobe indicating a small acute infarct. 2. Small punctate hemorrhage in the central portion of the midbrain and left thalamic area. 3. Diffuse bilateral cortical atrophy and chronic white matter changes are noted bilaterally. Jorge Lima MD Abdomen/Pelvis CT 09/21/16 0000 Signed Impressions: Service Date/Time: Wednesday, September 21, 2016 15:53 - CONCLUSION: 1. The urinary bladder appears to be distended. 2. The prostate is diffusely enlarged at 4.9 cm. 3. Bibasilar atelectasis. 4. No acute abdominal or pelvic pathology. Joreg Lima MD Head CT 09/19/16 0000 Signed Impressions: Service Date/Time: Monday, September 19, 2016 12:45 - CONCLUSION: 1. Evolving small thalamic hemorrhage on the left. No acute intracranial abnormalities. Celso Andrew MD Head/Brain Mag Res Venography 09/17/16 0000 Signed Impressions: Service Date/Time: August 12:37 - CONCLUSION: Negative Arben King MD Neck Magnetic Resonance Angiography 09/16/16900 Signed Impressions: Service Date/Time: Friday, September 16, 2016 15:51 - CONCLUSION: Normal examination. Arben King MD Head Magnetic Resonance Angiography 09/16/16900 Signed Impressions: Service Date/Time: Friday, September 16, 2016 15:51 - CONCLUSION: No acute [place] vascular findings Arben King MD Chest X-Ray 09/14/16 2230 Signed Impressions: Service Date/Time: Wednesday, September 14, 2016 22:30 - CONCLUSION: No acute disease. Eugene Gutierrez MD PHYSICAL EXAMINATION GENERAL: Awake and alert, no acute distress. HEENT. Unable to fully assess. The head is atraumatic. No icterus. Oropharynx - Moist mucosa without lesions. NECK: Supple without adenopathy or mass. HEART: Regular S1 and S2. LUNGS: Clear to auscultation. ABDOMEN: Bowel sounds present. Soft. No tenderness appreciated. EXTREMITIES: No clubbing, cyanosis or edema. NEURO: Non focal. speech normal. SKIN: No rash. IMPRESSION 1. Bacteremia in patient with sepsis. Parameters including elevated heart rate, fever, elevated white blood cell count at the time of the blood culture being obtained. Positive blood cultures due to Staph aureus preliminary identified in one of four bottles. 2. Urinary tract infection due to Staph aureus. Patient with elevated white cells in the urine and a small amount of leukocyte esterase and Staph aureus recovered from the urine. 3. CVA. Patient with thalamic hemorrhage on the left on the left on imaging. RECOMMENDATIONS 1. Stop vancomycin. 2. Start Ancef. Staph is MSSA. 3. Repeat the blood culture. 4. Monitor temperature and clinical status. Alex Macdonald MD Sep 22, 2016 12:00
--- NOTE | 2016-09-22 17:37 | HHI.PR ---
Subjective Remarks Sitting on the chair, pleasant answering simple question, oriented to place and person Denied chest pain short of breath, no fever or chills lightheadedness or blurry vision, new weakness CT abdomen showed distended ladder with enlarged prostate, MRI as below Objective Vitals Vital Signs Date Time Temp Pulse Resp B/P Pulse Ox O2 Delivery O2 Flow Rate FiO2 09/22/16 16:00 87 09/22/16 16:00 97.5 87 18 159/83 96 09/22/16 14:00 98 09/22/16 12:00 94 09/22/16 12:00 98.5 94 19 149/72 99 09/22/16 10:00 108 09/22/16 08:00 100 09/22/16 08:00 99.1 79 26 150/98 96 09/22/16 07:00 97 Room Air 09/22/16 06:00 97 09/22/16 04:00 98 09/22/16 04:00 98.3 98 18 153/73 92 09/22/16 02:00 88 09/22/16 00:00 99.0 90 20 143/76 97 09/22/16 00:00 90 09/21/16 22:00 90 09/21/16 20:00 98.6 96 21 145/86 95 09/21/16 20:00 96 09/21/16 19:30 94 21 09/21/16 19:00 96 Room Air 09/21/16 18:00 93 I/O 09/21/16 09/21/16 09/21/16 09/22/16 09/22/16 09/22/16 07:00 15:00 23:00 07:00 15:00 23:00 Intake Total 1068 ml 2092 ml 732 ml 1020 ml 1292 ml Output Total 750 ml 400 ml 800 ml 850 ml Balance 318 ml 1692 ml -68 ml 1020 ml 442 ml Intake Oral 240 ml 1146 ml 480 ml 120 ml 711 ml IV Total 828 ml 946 ml 252 ml 900 ml 581 ml Output Urine Total 750 ml 400 ml 800 ml 850 ml Bladder Scan Volume Amount 361 ml # Voids 4 # Bowel Movements 0 0 0 0 0 Result Diagram: 09/22/1633109/22/16331 Objective Remarks GENERAL: This is a well-nourished, well-developed patient, in no apparent distress. SKIN: No rashes, warm and dry HEAD: Atraumatic. Normocephalic. EYES: Pupils equal round and reactive. Extraocular motions intact. No scleral icterus. ENT: Nose without bleeding, or drainage, Airway patent. NECK: Trachea midline. Supple CARDIOVASCULAR: Regular tachycardia without murmurs, gallops, or rubs. RESPIRATORY: Fair air entry bilaterally. No wheezes, rales, or rhonchi. GASTROINTESTINAL: Abdomen soft, non-tender, nondistended. Positive bowel sounds MUSCULOSKELETAL: Extremities without clubbing, cyanosis, or edema. Pedal pulses appreciated NEUROLOGICAL: Awake and alert oriented to place and person not time Right upper and lower extremity 4 out of 5, left upper and lower extremity 2-3 out of 5. Normal speech but slow. A/P Problem List: (1) Nontraumatic thalamic hemorrhage ICD Code: I61.9 Status: Acute (2) Hypertension ICD Code: I10 Status: Acute (3) Dyslipidemia ICD Code: E78.5 Status: Acute (4) Diabetes mellitus ICD Code: E11.9 Status: Acute (5) FRANCHESKA (obstructive sleep apnea) ICD Code: G47.33 Status: Acute (6) Gastroesophageal reflux disease ICD Code: K21.9 Status: Acute (7) Hypothyroidism ICD Code: E03.9 Status: Acute (8) Acute kidney injury ICD Code: N17.9 Status: Acute (9) History of CVA (cerebrovascular accident) ICD Code: Z86.73 Status: Acute Assessment and Plan 09/19: Per the and the nurse significant change in status including left upper and lower worsening weakness, blood pressure improved after adding hydralazine, tachycardia 110/120, need to rule out any underlying sepsis considering low-grade fever of 100 today >> Stat Accu-Chek has been done showing 170 >> Check stat CT without contrast assess bleeding, contraindication for TPA due to this >> Neuro check every hour >> Placed call for neurology to reassess Discussed with nurse, , reviewed previous imagings , previous note from other attending and specialist, decision made to hold on discharge today and workup worsening neuro status >> Neurosurgery also notified stable follow on CT had >> Check lactic acid and CBC stat, blood culture 09/20: Blood culture positive for gram-positive cocci sepsis? Urine source>> started vancomycin, 2-D echo pending, appreciate ID consultation Continue monitoring, neurology following 09/21: Positive blood culture with + GC>> will do CT abdomen and pelvic rule out underlying abscess, continue vancomycin, awaiting 2-D echo, repeat BMP mag and possible, consult ID 09/22: Discussed with the CT abdomen and MRI of brain reviewed personally by me, showing enlarged prostate and distended bladder, area of ischemic stroke and minimal hemorrhage on MRI as above Check bladder scan and inserted Pantoja if needed to release pressure of the bladder Notify neurology about the result of the MRI EEG she reviewed personally by me positive encephalopathy with EPOCH epileptogenic area. The culture revealed MSSA>> antibiotic switched to cefazolin per ID A/P: MSSA bacteremia Left superior anterior thalamic CVA History CVA with old supratentorial CV is noted Acute right MCA cortical infarct -neg GABY and two week holter neg -Per neurologist he thinks that the hemorrhagic infarct was from the aspirin and Plavix and that he probably had a silent CVA small left in the last 1 month that was not present at the other hospital. -Neurologist recommends Coumadin and to wait 1 week before starting medication. -MRV negative and hypocoagulable screening pending. -Per neurologist okay for blood pressure to run 120-160. -PT/OT/ST following Hypertension/Dyslipidemia/FRANCHESKA/GERD/urinary incontinence/hypothyroidism/diabetes On losartan 100 mg daily and Coreg 6.25 mg twice a day at home for hypertension. Continue hydralazine started today and better control of BP. On Crestor 80 mg at night for dyslipidemia. Hold Plavix Continue oxybutynin 10 mg by mouth daily. Continue Levoxyl 75 mg by mouth daily. Check TSH Hold metformin/glipizide 1000/5 one tablet twice a day. Sliding scale insulin Accu-Cheks to maintain euglycemia/low regimen Prophylaxis - GI - Protonix - DVT - SCD/from) prophylaxis contra indicated status post bleed Problem Qualifiers (1) Hypertension: Qualified Code: I10 - Essential hypertension (2) Diabetes mellitus: Qualified Code: E11.8 - Type 2 diabetes mellitus with complication, without long-term current use of insulin (3) Gastroesophageal reflux disease: Qualified Code: K21.9 - Gastroesophageal reflux disease, esophagitis presence not specified (4) Hypothyroidism: Qualified Code: E03.9 - Hypothyroidism, unspecified type Nemou,Chowdhury MD Sep 22, 2016 17:37
[2016-09-22] MEDS: ATORVASTATIN 80 MG TAB PO SCH (21:05)
[2016-09-22] MEDS: LABETALOL HCL 100 MG/20 ML VIAL IV PRN (22:23)
[2016-09-23] VITALS (12 sets, daily range): BP systolic 128–146; BP diastolic 61–77; PULSE 78–94; RESP 12–23; TEMP 97.7–99.1; O2SAT 91–98
[2016-09-23] MEDS: ceFAZolin 2 GM PREMIX 50 ML IV SCH ×3 (02:11→17:58)
[2016-09-23] MEDS: LABETALOL HCL 100 MG/20 ML VIAL IV PRN (03:12)
[2016-09-23] MEDS: CHLORHEXIDINE GLUCONATE 2 % 1 PACK (2 CLOTHS) TOP SCH (04:00)
[2016-09-23] MEDS: hydrALAZINE HCL 50 MG TAB PO SCH ×3 (05:14→21:11)
[2016-09-23] MEDS: LEVOTHYROXINE SODIUM 75 MCG TAB PO SCH (06:07)
[2016-09-23] MEDS: TOLTERODINE TARTRATE 4 MG CAP LA PO SCH (07:27)
[2016-09-23] MEDS: CARVEDILOL 6.25 MG TAB PO SCH ×2 (07:27→20:12)
[2016-09-23] MEDS: SODIUM CHLOR 0.9% 1000 ML INJ 1,000 ML IV SCH ×2 (07:27→20:12)
[2016-09-23] MEDS: LOSARTAN 50 MG TAB PO SCH (07:27)
[2016-09-23] MEDS: SODIUM CHLORIDE 0.9% FLUSH 10 ML FLUSH IV FLUSH SCH ×2 (07:28→20:12)
[2016-09-23] MEDS: DOCUSATE SODIUM 50 MG/SENNA 8.6 MG TAB PO SCH ×2 (07:28→20:11)
[2016-09-23] MEDS: PANTOPRAZOLE SODIUM 40 MG VIAL IV SCH (07:28)
[2016-09-23] MEDS: INSULIN NovoLIN REGULAR SUPPLEMENTAL SCALE SQ SCH ×4 (07:42→20:15)
--- NOTE | 2016-09-23 08:38 | HHI.PR ---
Subjective Remarks sr Objective Vital Signs Date Time Temp Pulse Resp B/P Pulse Ox O2 Delivery O2 Flow Rate FiO2 09/23/16 08:00 96 Room Air 09/23/16 07:49 94 21 09/23/16 07:00 97 Nasal Cannula 3.00 21 09/23/16 06:00 90 09/23/16 04:38 98 Nasal Cannula 3.00 09/23/16 04:00 99.1 78 12 129/62 91 09/23/16 04:00 78 09/23/16 02:00 78 09/23/16 00:00 98.1 90 20 143/71 94 09/23/16 00:00 90 09/22/16 22:00 88 09/22/16 20:00 94 09/22/16 20:00 98.5 88 12 158/80 95 09/22/16 19:40 96 21 09/22/16 19:00 95 Room Air 09/22/16 18:00 90 09/22/16 16:00 87 09/22/16 16:00 97.5 87 18 159/83 96 09/22/16 14:00 98 09/22/16 12:00 94 09/22/16 12:00 98.5 94 19 149/72 99 09/22/16 10:00 108 I/O 09/22/16 09/22/16 09/22/16 09/23/16 09/23/16 09/23/16 06:59 14:59 22:59 06:59 14:59 22:59 Intake Total 1020 ml 1292 ml 980 ml 583 ml Output Total 850 ml 1725 ml 1000 ml Balance 1020 ml 442 ml -745 ml -417 ml Intake Oral 120 ml 711 ml 240 ml IV Total 900 ml 581 ml 740 ml 583 ml Output Urine Total 850 ml 1725 ml 1000 ml Bladder Scan Volume Amount 361 ml # Voids 4 # Bowel Movements 0 0 0 0 Result Diagram: 09/22/1633109/22/16331 Objective Remarks alert face sym nl speech Assessment and Plan Assessment and Plan imp now another acute r mca cortical infarct and similar in 05/08 i reviewed notes [facility] neg marylou and acc to neg two week holter mult deep and cortical cva i think the left deep ich is a hemorrhagic infarct from the asa and plavix he probably had a silent cva small left in last one month as not present on last [facility] he needs coumadin and i think considering the blood on ct we should wait a week to start i dw check mrv and hyper screen ok to floor ok to run bp 120-160 oob // 09/18/16 no change bps 150s left small ich will start coumadin one week he is ok to go to either home if walking well or rehab oob ambulate with PT plz inc his oral meds so we can get him off iv deborah and dced 09/21/16 lethargic yes unclear why temp on 1.1 on 09/19 bld cx positive on vanco plan is to recheck mri make sure no new cva and check eeg why he got septic i do not know he had marylou neg in 05/08 echo neg here defer to med team if need another echo recheck mri eeg as above ct yest still shows evolving left deep ich small 09/23/16 mri nothing new i reviewed films eeg ? abn mild i will review echo and holter neg will consider anticoag next week late some old blood product brain stem also run bp and pulse nl levels oob could dc neuro orosco Pio Burgess MD Sep 23, 2016 08:38
--- NOTE | 2016-09-23 11:24 | HHI.IDPN ---
Note Infectious Disease Note Patient is up in chair. Feels well. Denies chills. No complaints. Afebrile. Seen for positive blood cultures. Diagnosed with thalamic stroke this admission. PAST MEDICAL HISTORY 1. CVA in 2008 and also in 2017. 2. Hypertension. 3. Dyslipidemia. 4. Diabetes mellitus. 5. Gastroesophageal reflux disease. 6. Obstructive sleep apnea. ALLERGIES BACTRIM. NIACIN. CRESTOR. ANTIBIOTICS Ancef. OBJECTIVE: Vital Signs Date Time Temp Pulse Resp B/P Pulse Ox O2 Delivery O2 Flow Rate FiO2 09/23/16 10:00 88 09/23/16 08:00 98.5 86 23 128/61 94 09/23/16 08:00 94 09/23/16 08:00 96 Room Air 09/23/16 07:49 94 21 09/23/16 07:00 97 Nasal Cannula 3.00 21 09/23/16 06:00 90 09/23/16 04:38 98 Nasal Cannula 3.00 09/23/16 04:00 99.1 78 12 129/62 91 09/23/16 04:00 78 09/23/16 02:00 78 09/23/16 00:00 98.1 90 20 143/71 94 09/23/16 00:00 90 09/22/16 22:00 88 09/22/16 20:00 94 09/22/16 20:00 98.5 88 12 158/80 95 09/22/16 19:40 96 21 09/22/16 19:00 95 Room Air 09/22/16 18:00 90 09/22/16 16:00 87 09/22/16 16:00 97.5 87 18 159/83 96 09/22/16 14:00 98 09/22/16 12:00 94 09/22/16 12:00 98.5 94 19 149/72 99 09/22/16 09/22/16 09/23/16 15:00 23:00 07:00 Intake Total 1292 ml 980 ml 583 ml Output Total 850 ml 1725 ml 1000 ml Balance 442 ml -745 ml -417 ml Intake Oral 711 ml 240 ml IV Total 581 ml 740 ml 583 ml Output Urine Total 850 ml 1725 ml 1000 ml Bladder Scan Volume Amount 361 ml # Bowel Movements 0 0 0 Laboratory Tests Test 09/22/16 03:32 White Blood Count 8.5 TH/MM3 Red Blood Count 3.89 MIL/MM3 Hemoglobin 11.9 GM/DL Hematocrit 34.4 % Mean Corpuscular Volume 88.6 FL Mean Corpuscular Hemoglobin 30.7 PG Mean Corpuscular Hemoglobin 34.6 % Concent Red Cell Distribution Width 13.1 % Platelet Count 126 TH/MM3 Mean Platelet Volume 9.2 FL Neutrophils (%) (Auto) 56.6 % Lymphocytes (%) (Auto) 30.3 % Monocytes (%) (Auto) 10.8 % Eosinophils (%) (Auto) 1.9 % Basophils (%) (Auto) 0.4 % Neutrophils # (Auto) 4.8 TH/MM3 Lymphocytes # (Auto) 2.6 TH/MM3 Monocytes # (Auto) 0.9 TH/MM3 Eosinophils # (Auto) 0.2 TH/MM3 Basophils # (Auto) 0.0 TH/MM3 CBC Comment DIFF FINAL Differential Comment Laboratory Tests Test 09/21/16 09/22/16 14:40 03:32 Sodium Level 138 MEQ/L 139 MEQ/L Potassium Level 3.4 MEQ/L 3.3 MEQ/L Chloride Level 103 MEQ/L 104 MEQ/L Carbon Dioxide Level 26.5 MEQ/L 26.9 MEQ/L Anion Gap 9 MEQ/L 8 MEQ/L Blood Urea Nitrogen 15 MG/DL 19 MG/DL Creatinine 0.64 MG/DL 0.68 MG/DL Estimat Glomerular Filtration 129 ML/MIN 121 ML/MIN Rate Random Glucose 234 MG/DL 235 MG/DL Calcium Level 8.3 MG/DL 7.9 MG/DL Phosphorus Level 2.4 MG/DL Magnesium Level 1.8 MG/DL Microbiology Date/Time Procedure Status Source Growth 09/22/16 18:18 Aerobic Blood Culture - Preliminary Resulted Blood Peripheral NO GROWTH IN 1 DAY 09/22/16 18:18 Anaerobic Blood Culture - Preliminary Resulted Blood Peripheral NO GROWTH IN 1 DAY Microbiology Date/Time Procedure Status Source Growth 09/19/16 13:50 Aerobic Blood Culture - Final Complete Blood Peripheral Staphylococcus Aureus 09/19/16 13:50 Anaerobic Blood Culture - Final Complete Staphylococcus Aureus 09/19/16 14:00 Aerobic Blood Culture - Final Complete Blood Peripheral Staphylococcus Aureus 09/19/16 14:00 Anaerobic Blood Culture - Final Complete Staphylococcus Aureus IMAGING: Brain MRI 09/21/16 0000 Signed Impressions: Service Date/Time: Wednesday, September 21, 2016 15:32 - CONCLUSION: 1. Small area restricted diffusion in the mid right parietal lobe indicating a small acute infarct. 2. Small punctate hemorrhage in the central portion of the midbrain and left thalamic area. 3. Diffuse bilateral cortical atrophy and chronic white matter changes are noted bilaterally. Jorge Lima MD Abdomen/Pelvis CT 09/21/16 0000 Signed Impressions: Service Date/Time: Wednesday, September 21, 2016 15:53 - CONCLUSION: 1. The urinary bladder appears to be distended. 2. The prostate is diffusely enlarged at 4.9 cm. 3. Bibasilar atelectasis. 4. No acute abdominal or pelvic pathology. Jorge Lima MD Head CT 09/19/16 0000 Signed Impressions: Service Date/Time: Monday, September 19, 2016 12:45 - CONCLUSION: 1. Evolving small thalamic hemorrhage on the left. No acute intracranial abnormalities. Celso Andrew MD Head/Brain Mag Res Venography 09/17/16 0000 Signed Impressions: Service Date/Time: August 12:37 - CONCLUSION: Negative Arben King MD Neck Magnetic Resonance Angiography 09/16/16 09 Signed Impressions: Service Date/Time: Friday, September 16, 2016 15:51 - CONCLUSION: Normal examination. Arben King MD Head Magnetic Resonance Angiography 09/16/16 0901 Signed Impressions: Service Date/Time: Friday, September 16, 2016 15:51 - CONCLUSION: No acute [facility] vascular findings Arben King MD Chest X-Ray 09/14/160 Signed Impressions: Service Date/Time: Wednesday, September 14, 2016 22:30 - CONCLUSION: No acute disease. Eugene Gutierrez MD PHYSICAL EXAMINATION GENERAL: Awake and alert, no acute distress. HEENT. Unable to fully assess. The head is atraumatic. No icterus. Oropharynx - Moist mucosa without lesions. NECK: Supple without adenopathy or mass. HEART: Regular S1 and S2. LUNGS: Clear to auscultation. ABDOMEN: Bowel sounds present. Soft. Non tender. EXTREMITIES: No clubbing, cyanosis or edema. NEURO: Non focal. speech normal. Moves all extremities. SKIN: No rash. IMPRESSION 1. Bacteremia in patient with sepsis. Parameters including elevated heart rate, fever, elevated white blood cell count at the time of the blood culture being obtained. Positive blood cultures due to Staph aureus MSSA. 2. Urinary tract infection due to Staph aureus. Patient with elevated white cells in the urine and a small amount of leukocyte esterase and Staph aureus recovered from the urine. 3. CVA. Patient with thalamic hemorrhage on the left on the left on imaging. RECOMMENDATIONS 1. Continue Ancef. 2. Follow repeat the blood culture. 3. Needs 14 days of IV antibiotics for the sepsis from day of last positive culture. 4. Monitor temperature and clinical status. Alex Macdonald MD Sep 23, 2016 11:24
--- NOTE | 2016-09-23 17:34 | HHI.PR ---
Subjective Remarks Seen and examined laying in bed open eyes Answering simple question no major changes today no complain Multiple question by his all answered to satisfaction Continue iv antibiotic with Ancef, neurology did not notice new finding in the MRI Objective Vitals Vital Signs Date Time Temp Pulse Resp B/P Pulse Ox O2 Delivery O2 Flow Rate FiO2 09/23/16 16:00 98.8 85 19 142/67 96 09/23/16 16:00 85 09/23/16 15:13 92 Nasal Cannula 2.00 21 09/23/16 14:20 88 Room Air 09/23/16 14:00 86 09/23/16 12:00 97.7 90 16 141/77 98 09/23/16 12:00 90 09/23/16 10:00 88 09/23/16 08:00 98.5 86 23 128/61 94 09/23/16 08:00 94 09/23/16 08:00 96 Room Air 09/23/16 07:49 94 21 09/23/16 07:00 97 Nasal Cannula 3.00 21 09/23/16 06:00 90 09/23/16 04:38 98 Nasal Cannula 3.00 09/23/16 04:00 99.1 78 12 129/62 91 09/23/16 04:00 78 09/23/16 02:00 78 09/23/16 00:00 98.1 90 20 143/71 94 09/23/16 00:00 90 09/22/16 22:00 88 09/22/16 20:00 94 09/22/16 20:00 98.5 88 12 158/80 95 09/22/16 19:40 96 21 09/22/16 19:00 95 Room Air 09/22/16 18:00 90 I/O 09/22/16 09/22/16 09/22/16 09/23/16 09/23/16 09/23/16 07:00 15:00 23:00 07:00 15:00 23:00 Intake Total 1020 ml 1292 ml 980 ml 583 ml 1108 ml Output Total 850 ml 1725 ml 1000 ml 1050 ml Balance 1020 ml 442 ml -745 ml -417 ml 58 ml Intake Oral 120 ml 711 ml 240 ml 448 ml IV Total 900 ml 581 ml 740 ml 583 ml 660 ml Output Urine Total 850 ml 1725 ml 1000 ml 1050 ml Bladder Scan Volume Amount 361 ml # Voids 4 # Bowel Movements 0 0 0 0 0 Result Diagram: 09/22/1633109/22/16331 Objective Remarks GENERAL: This is a well-nourished, well-developed patient, in no apparent distress. SKIN: No rashes, warm and dry HEAD: Atraumatic. Normocephalic. EYES: Pupils equal round and reactive. Extraocular motions intact. No scleral icterus. ENT: Nose without bleeding, or drainage, Airway patent. NECK: Trachea midline. Supple CARDIOVASCULAR: Regular tachycardia without murmurs, gallops, or rubs. RESPIRATORY: Fair air entry bilaterally. No wheezes, rales, or rhonchi. GASTROINTESTINAL: Abdomen soft, non-tender, nondistended. Positive bowel sounds MUSCULOSKELETAL: Extremities without clubbing, cyanosis, or edema. Pedal pulses appreciated NEUROLOGICAL: Awake and alert oriented to place and person not time Right upper and lower extremity 4 out of 5, left upper and lower extremity 2-3 out of 5. Normal speech but slow. A/P Problem List: (1) Nontraumatic thalamic hemorrhage ICD Code: I61.9 Status: Acute (2) Hypertension ICD Code: I10 Status: Acute (3) Dyslipidemia ICD Code: E78.5 Status: Acute (4) Diabetes mellitus ICD Code: E11.9 Status: Acute (5) FRANCHESKA (obstructive sleep apnea) ICD Code: G47.33 Status: Acute (6) Gastroesophageal reflux disease ICD Code: K21.9 Status: Acute (7) Hypothyroidism ICD Code: E03.9 Status: Acute (8) Acute kidney injury ICD Code: N17.9 Status: Acute (9) History of CVA (cerebrovascular accident) ICD Code: Z86.73 Status: Acute Assessment and Plan 09/19: Per the and the nurse significant change in status including left upper and lower worsening weakness, blood pressure improved after adding hydralazine, tachycardia 110/120, need to rule out any underlying sepsis considering low-grade fever of 100 today >> Stat Accu-Chek has been done showing 170 >> Check stat CT without contrast assess bleeding, contraindication for TPA due to this >> Neuro check every hour >> Placed call for neurology to reassess Discussed with nurse, , reviewed previous imagings , previous note from other attending and specialist, decision made to hold on discharge today and workup worsening neuro status >> Neurosurgery also notified stable follow on CT had >> Check lactic acid and CBC stat, blood culture 09/20: Blood culture positive for gram-positive cocci sepsis? Urine source>> started vancomycin, 2-D echo pending, appreciate ID consultation Continue monitoring, neurology following 09/21: Positive blood culture with + GC>> will do CT abdomen and pelvic rule out underlying abscess, continue vancomycin, awaiting 2-D echo, repeat BMP mag and possible, consult ID 09/22: Discussed with the CT abdomen and MRI of brain reviewed personally by me, showing enlarged prostate and distended bladder, area of ischemic stroke and minimal hemorrhage on MRI as above Check bladder scan and inserted Pantoja if needed to release pressure of the bladder Notify neurology about the result of the MRI EEG she reviewed personally by me positive encephalopathy with EPOCH epileptogenic area. 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 -Neurologist recommends Coumadin and to wait 1 week before starting medication. -MRV negative and hypocoagulable screening pending. -Per neurologist okay for blood pressure to run 120-160. -PT/OT/ST following Hypertension/Dyslipidemia/FRANCHESKA/GERD/urinary incontinence/hypothyroidism/diabetes On losartan 100 mg daily and Coreg 6.25 mg twice a day at home for hypertension. Continue hydralazine started today and better control of BP. On Crestor 80 mg at night for dyslipidemia. Hold Plavix Continue oxybutynin 10 mg by mouth daily. Continue Levoxyl 75 mg by mouth daily. Check TSH Hold metformin/glipizide 1000/5 one tablet twice a day. Sliding scale insulin Accu-Cheks to maintain euglycemia/low regimen Prophylaxis - GI - Protonix - DVT - SCD/from) prophylaxis contra indicated status post bleed Problem Qualifiers (1) Hypertension: Qualified Code: I10 - Essential hypertension (2) Diabetes mellitus: Qualified Code: E11.8 - Type 2 diabetes mellitus with complication, without long-term current use of insulin (3) Gastroesophageal reflux disease: Qualified Code: K21.9 - Gastroesophageal reflux disease, esophagitis presence not specified (4) Hypothyroidism: Qualified Code: E03.9 - Hypothyroidism, unspecified type Luciana Heck MD Sep 23, 2016 17:34
[2016-09-23] MEDS: POTASSIUM PHOSPHATE MONOBASIC 500 MG TAB PO SCH (20:11)
[2016-09-23] MEDS: ATORVASTATIN 80 MG TAB PO SCH (20:11)
[2016-09-24] VITALS: BP 144/74; PULSE 88; RESP 21; TEMP 98; O2SAT 95
[2016-09-24] MEDS: ceFAZolin 2 GM PREMIX 50 ML IV SCH ×2 (03:40→11:40)
[2016-09-24 04:00] VITALS: BP 145/67; PULSE 82; PULSE 92; RESP 20; TEMP 98.6; O2SAT 93
[2016-09-24] MEDS: CHLORHEXIDINE GLUCONATE 2 % 1 PACK (2 CLOTHS) TOP SCH (04:00)
[2016-09-24 05:43] LABS: BICARBONATE 28.7 MEQ/L (21.0-32.0); POTASSIUM 3.4 MEQ/L (3.5-5.1)
[2016-09-24] MEDS: INSULIN NovoLIN REGULAR SUPPLEMENTAL SCALE SQ SCH ×3 (07:00→16:00)
[2016-09-24 07:48] VITALS: O2SAT 97
[2016-09-24 08:00] VITALS: BP 137/67; PULSE 84; RESP 16; TEMP 98.3; O2SAT 97
[2016-09-24] MEDS: SODIUM CHLOR 0.9% 1000 ML INJ 1,000 ML IV SCH (08:30)
[2016-09-24] MEDS: PANTOPRAZOLE SODIUM 40 MG VIAL IV SCH (08:39)
[2016-09-24] MEDS: hydrALAZINE HCL 50 MG TAB PO SCH ×2 (08:39→13:40)
[2016-09-24] MEDS: LEVOTHYROXINE SODIUM 75 MCG TAB PO SCH (08:39)
[2016-09-24] MEDS: POTASSIUM PHOSPHATE MONOBASIC 500 MG TAB PO SCH (08:40)
[2016-09-24] MEDS: SODIUM CHLORIDE 0.9% FLUSH 10 ML FLUSH IV FLUSH SCH (08:40)
[2016-09-24] MEDS: TOLTERODINE TARTRATE 4 MG CAP LA PO SCH (08:40)
[2016-09-24] MEDS: LOSARTAN 50 MG TAB PO SCH (08:40)
[2016-09-24] MEDS: CARVEDILOL 6.25 MG TAB PO SCH (08:40)
[2016-09-24] MEDS: DOCUSATE SODIUM 50 MG/SENNA 8.6 MG TAB PO SCH (08:40)
[2016-09-24 12:00] VITALS: BP 123/62; PULSE 80; RESP 16; TEMP 98.4; O2SAT 96
--- NOTE | 2016-09-24 13:30 | HHI.FF ---
Infusion Therapy Location of Infusion Therapy: [facility] Infusion Therapy Order Patient Information Patient Weight 68.2 kg Diagnosis: Diagnosis Sepsis, UTI. Staph aureus. Coded Allergies: Bactrim (Unverified Allergy, Severe, rash itch and patches, 09/14/16) Niacin (Unverified Allergy, Severe, redness,itching ,rash, 09/14/16) Uncoded Allergies: crestor (Allergy, Severe, muscle aches, 05/17/09) Administer Medication Cefazolin 2 grams IV q 8 hours Stop Treatment: Oct 03, 2016 Additional Information Venous access: PICC Line Additional Instructions [x] Peripheral flush and dressing changes per protocol [x] Implanted port and central vessel liner: * Implanted port: 10 ml Normal Saline followed by 5 ml Heparin 100 units/ml Heparin flush after each use and monthly to maintain. [] May leave port accessed during therapy. [] May leave peripheral site accessed for duration of therapy. [x] If patient has SOB or respiratory distress, check oxygen saturation. If less than 90% or clinical signs of respiratory distress, administer oxygen at 2 L/min. via nasal cannula and notify physician. [x] Anaphylaxis/Reaction orders: * Stop infusion. * Keep IV line open with saline flush. * Notify physician. * Monitor vital signs every 15 minutes until symptoms resolve. * Check Oxygen saturation; Oxygen at 2 L/min. via nasal cannula if less than 90% or clinical signs of respiratory distress. * Administer diphenhydramine (Benadryl) 25 mg IV STAT, (unless patient has received as pre-med). May repeat once, if necessary. * Solu-Cortef 250 mg IVP over 30-60 seconds, use 100 mg vials for each dissolution. * Epinephrine (1mg/1 ml) 0.3 mg subcutaneously or IVP now with any signs of respiratory distress. * Check with physician for new additional pre-med orders if patient is re- challenged or re-treated. [x] May remove PICC line when treatment complete, after confirming with Physician. [x] If the patient is admitted to the hospital, the ED, or transferred via [facility] , complete transfer form including medication reconciliation order sheet. Laboratory Tests Weekly Labs: BMP, LFT's (Hepatic function test) Alex Macdonald MD Sep 24, 2016 13:30
--- NOTE | 2016-09-24 13:34 | HHI.DS ---
Discharge Summary Admission Date Sep 14, 2016 at 23:30 Discharge Date: Sep 24, 2016 Admitting Diagnosis 6 mm left thalamic hemorrhage (1) Nontraumatic thalamic hemorrhage ICD Code: I61.9 (2) Hypertension ICD Code: I10 (3) Dyslipidemia ICD Code: E78.5 (4) Diabetes mellitus ICD Code: E11.9 (5) FRANCHESKA (obstructive sleep apnea) ICD Code: G47.33 (6) Gastroesophageal reflux disease ICD Code: K21.9 (7) Hypothyroidism ICD Code: E03.9 (8) Acute kidney injury ICD Code: N17.9 (9) History of CVA (cerebrovascular accident) ICD Code: Z86.73 Procedures See below Brief History - From Admission 56-year-old male right-handed male. Date of admission 09/15/2016. Past medical history includes prior CVA 2007 in 2016, hypertension, dyslipidemia , diabetes mellitus, gastroesophageal reflux disease, obstructive sleep apnea patient was last seen his normal state of the 12:30 today. With falls and occludes increasing confusion, left facial droop subjectively the left upper extremity/sensation. According to daughter, patient is more confused than his baseline.. Upon arrival, patient had imaging the brain from which revealed a left basal ganglia superior anterior bleed.mass or shift. Patient was hypertensive with systolic in the 180s. Dr. Low was notified and recommended domestic helper admit patient for further evaluation treatment. Patient is currently on a Cleviprex gtt to maintain systolic blood pressure less than 150.. Noted left facial droop, left pronator drift and decreased sensation to left upper extremity. CBC/BMP: 09/22/16 0332 09/24/16 0325 Significant Findings Laboratory Tests Test 09/21/16 09/22/16 09/24/16 14:40 03:32 03:25 Potassium Level 3.4 MEQ/L 3.3 MEQ/L 3.4 MEQ/L (3.5-5.1) (3.5-5.1) (3.5-5.1) Random Glucose 234 MG/DL 235 MG/DL 249 MG/DL (74-106) (74-106) (74-106) Calcium Level 8.3 MG/DL 7.9 MG/DL 8.1 MG/DL (8.5-10.1) (8.5-10.1) (8.5-10.1) Phosphorus Level 2.4 MG/DL (2.5-4.9) Red Blood Count 3.89 MIL/MM3 (4.50-5.90) Hemoglobin 11.9 GM/DL (13.0-17.0) Hematocrit 34.4 % (39.0-51.0) Platelet Count 126 TH/MM3 (150-450) Monocytes (%) (Auto) 10.8 % (0.0-8.0) Blood Urea Nitrogen 19 MG/DL (7-18) PE at Discharge GENERAL: This is a well-nourished, well-developed patient, in no apparent distress. SKIN: No rashes, warm and dry HEAD: Atraumatic. Normocephalic. EYES: Pupils equal round and reactive. Extraocular motions intact. No scleral icterus. ENT: Nose without bleeding, or drainage, Airway patent. NECK: Trachea midline. Supple CARDIOVASCULAR: Regular tachycardia without murmurs, gallops, or rubs. RESPIRATORY: Fair air entry bilaterally. No wheezes, rales, or rhonchi. GASTROINTESTINAL: Abdomen soft, non-tender, nondistended. Positive bowel sounds MUSCULOSKELETAL: Extremities without clubbing, cyanosis, or edema. Pedal pulses appreciated NEUROLOGICAL: Awake and alert oriented to place and person not time Right upper and lower extremity 4 out of 5, left upper and lower extremity 2-3 out of 5. Normal speech but slow. Hospital Course 56 years old male admitted for left superior anterior thalamic CVA history of CVA 2007 as well old supratentorial CV, acute right MCA cortical infarct, neurology and neurosurgery consulted GABY and Holter monitor has been done, Coumadin recommended later on next week when patient follow up with a neurosurgeon, multiple MRI is being done. PTOT Patient had hypertension dyslipidemia, neurology guided blood pressure control. On September 19 patient that looked change and worsening in his mental status, workup has been done showed MSSA bacteremia, ID consulted, started on Ance. Patient also found to have enlarged prostate with urinary obstruction Pantoja placed, patient follow up with urology in [place], the will schedule an appointment to see him. Patient cleared by neurosurgery and neurology as well as ID with whom I discussed on the day of discharge to go on Ancef for a total of 14 days from the last ostia of blood culture. [id number] encounter performed with the patient on discharge day, as well as physical exam, summary of hospitalization course and postdischarge plan has been D/W the patient. D/W nurse D/W case aide. Discharge medications reviewed and printed and signed, post discharge follow up visit with PCP and other specialist as well as Brief hospital course and discharge summary has been placed. Pt Condition on Discharge: Fair Discharge Disposition: Discharge to SNF Discharge Time: > 30 minutes Discharge Instructions DIET: Follow Instructions for: Heart Healthy Diet, Diabetic Diet Activities you can perform: See Additionl Instruction Other Activity Instructions: per PT Follow up Referrals: Infectious Disease - 2 Weeks with Lori Aguero MD Neurology - 1 Week with Pio Burgess MD Neurosurgery - 1 Week with Biju Low MD New Medications: Walker with Front Wheels (Walker with Front Wheels) 1 Mis Mis 1 EA .ROUTE DIRECTED #1 Ref 0 EA Hydralazine HCl (Hydralazine HCl) 50 Mg Tablet 50 MG PO Q8HR htn #90 TAB Hydrocodone-Acetaminophen (Hydrocodone-Acetaminophen) 5-325 mg Tab 1 TAB PO Q4H PRN PAIN SCALE 1 TO 5 #15 TAB Pantoprazole Inj (Protonix Inj) 40 Mg Inj 40 MG IV DAILY gi #30 INJECTION Continued Medications: Atorvastatin (Atorvastatin) 80 Mg Tab 80 MG PO HS Cholesterol Management #30 Ref 0 TAB Carvedilol (Coreg) 6.25 Mg Tab 6.25 MG PO BID #60 Ref 0 TAB Empagliflozin-Metformin (Synjardy) 5-1,000 Mg Tab 1 TAB PO BIDPC Blood Sugar Management #60 Ref 0 TAB Glimepiride (Glimepiride) 2 Mg Tab 2 MG PO DAILY Take with breakfast or first main meal Blood Sugar Management #30 Ref 0 TAB Levothyroxine (Levothyroxine) 75 Mcg Tab 75 MCG PO DAILY Thyroid #30 Ref 0 TAB Losartan (Losartan) 100 Mg Tab 100 MG PO DAILY Blood Pressure Management #30 Ref 0 TAB Oxybutynin ER 24 HR (Oxybutynin ER 24 HR) 10 Mg Tab 10 MG PO DAILY Overactive Bladder Ref 0 TAB Luciana Heck MD Sep 24, 2016 13:34
--- NOTE | 2016-09-24 14:47 | HHI.NSPN ---
Note Status Status: Progress Note Interval History Interval History THIS NOTE REFLECTS MY ENCOUNTER ON 09/18 WHEN MR MURPHY WAS EVALUATED DURING ROUNDS This is a 56-year-old right-handed male. He has history of prior CVA 2008 in 2017, hypertension, dyslipidemia, diabetes mellitus, gastroesophageal reflux disease, obstructive sleep apnea. He presented with increasing confusion, left facial droop subjectively the left upper extremity/sensation. According to his daughter, he is more confused than his baseline.. Upon arrival, patient had imaging the brain from which revealed a left basal ganglia bleed.without significant mass effect or midline shift. He was hypertensive with systolic in the 180s. He is currently on a Cleviprex drip to maintain systolic blood pressure less than 150.. Noted left facial droop, left pronator drift and decreased sensation to left upper extremity. Neurosurgical consultation was requested 09/16: doing well, neuro stable overnight. f/u CT Head yesterday was stable. 09/17: sitting up in chair eating breakfast. MRI Brain shows multiple strokes, Neurology work up 09/18. Alerty, awake neurologically stable Labs, Micro, & Vital Signs Results Date Time Temp Pulse Resp B/P Pulse Ox O2 Delivery O2 Flow Rate FiO2 09/24/16 12:00 98.4 80 16 123/62 96 09/24/16 12:00 80 09/24/16 08:00 98.3 84 16 137/67 97 09/24/16 08:00 84 09/24/16 07:48 97 Nasal Cannula 4.00 09/24/16 07:00 95 Nasal Cannula 2.50 09/24/16 04:00 92 09/24/16 04:00 98.6 82 20 145/67 93 09/24/16 00:00 98.0 88 21 144/74 95 09/24/16 00:00 88 09/23/16 20:46 34 Nasal Cannula 2.00 09/23/16 20:00 98.3 86 23 146/70 95 09/23/16 20:00 86 09/23/16 19:19 97 09/23/16 19:00 95 Room Air 09/23/16 16:00 98.8 85 19 142/67 96 09/23/16 16:00 85 09/23/16 15:13 92 Nasal Cannula 2.00 21 09/24/16 07:00 Intake Total 2717 ml Output Total 4175 ml Balance -1458 ml Constitutional Vital Signs Date Time Temp Pulse Resp B/P Pulse Ox O2 Delivery O2 Flow Rate FiO2 09/24/16 12:00 98.4 80 16 123/62 96 09/24/16 12:00 80 09/24/16 08:00 98.3 84 16 137/67 97 09/24/16 08:00 84 09/24/16 07:48 97 Nasal Cannula 4.00 09/24/16 07:00 95 Nasal Cannula 2.50 09/24/16 04:00 92 09/24/16 04:00 98.6 82 20 145/67 93 09/24/16 00:00 98.0 88 21 144/74 95 09/24/16 00:00 88 09/23/16 20:46 34 Nasal Cannula 2.00 09/23/16 20:00 98.3 86 23 146/70 95 09/23/16 20:00 86 09/23/16 19:19 97 09/23/16 19:00 95 Room Air 09/23/16 16:00 98.8 85 19 142/67 96 09/23/16 16:00 85 09/23/16 15:13 92 Nasal Cannula 2.00 21 09/24/16 07:00 Intake Total 2717 ml Output Total 4175 ml Balance -1458 ml Review of Systems/Exam ROS THIS NOTE REFLECTS MY ENCOUNTER ON 09/18 WHEN MR MURPHY WAS EVALUATED DURING ROUNDS Exam THIS NOTE REFLECTS MY ENCOUNTER ON 09/18 WHEN MR MURPHY WAS EVALUATED DURING ROUNDS Mr. Murphy is alert, conversing. Sitting up in chair eating breakfast. Cranial nerve examination: pupils equal, round, and reactive to light. Facial motor appears symmetric. Neck is soft and supple. Muscle strength: moves all four extremities grossly symmetrically b/l. Plantar flexors b/l. Hoffmanns sign is negative. Mr. Murphy is alert, awake. Int confusion Cranial nerve examination: pupils equal, round, and reactive to light. Neck is soft and supple. Muscle strength: moves all four extremities grossly symmetrically b/l. Plantar flexors b/l. Hoffmanns sign is negative. Cerebellar examination is intact to [id number] test Medical Decision Making MDM Remarks THIS NOTE REFLECTS MY ENCOUNTER ON 09/18 WHEN MR MURPHY WAS EVALUATED DURING ROUNDS Last Impressions Head/Brain Mag Res Venography 09/17/16 0000 Signed Impressions: Service Date/Time: August 12:37 - CONCLUSION: Negative Arben King MD Neck Magnetic Resonance Angiography 09/16/16900 Signed Impressions: Service Date/Time: Friday, September 16, 2016 15:51 - CONCLUSION: Normal examination. Arben King MD Head Magnetic Resonance Angiography 09/16/16900 Signed Impressions: Service Date/Time: Friday, September 16, 2016 15:51 - CONCLUSION: No acute [place] vascular findings Arben King MD Brain MRI 09/16/16900 Signed Impressions: Service Date/Time: Friday, September 16, 2016 15:51 - CONCLUSION: Central and cortical atrophy with periventricular white matter changes. Focal 1 cm area of restricted diffusion high right centrum semiovale. Chronic hemosiderin changes basalganglia on the left. There is no contrast enhancement. Aly Smiley MD FACR Chest X-Ray 09/14/160 Signed Impressions: Service Date/Time: Wednesday, September 14, 2016 22:30 - CONCLUSION: No acute disease. Eugene Gutierrez MD Plan Plan Remarks THIS NOTE REFLECTS MY ENCOUNTER ON 09/18 WHEN MR MURPHY WAS EVALUATED DURING ROUNDS 56 y/o male with small left basal ganglia hemorrhage, stable, nonoperative multiple CVA on MRI Brain Attending Statement Continue neuro checks Pulmonary. aggressive pulmonary toilette, nasotracheal suction, and breathing treatments with nebulizers. PT and OT evaluation Nutrition. NPO Renal. monitor closely urine output, BUN and creatinine Endocrine. Monitor serial Acu checks and SSI as needed in detail ID monitor for signs of infection Protonix for stress ulcer prophylaxis Luke hose and SCD's for DVT prophylaxis Biju Low MD Sep 24, 2016 14:47
[2016-09-24 16:00] VITALS: PULSE 79
== END 2016-09-24 17:32 | disposition home or self-care (01) | DRG 65 ==
LOC: NEPC 22:08 → NEDA 23:30 → N03A 09-15 03:47
PROVIDERS: ADMIT Hospitalist; ATTEND Hospitalist
PROC: 0T9B70Z Drainage of Bladder with Drainage Device, Via Natural or Artificial Opening (ICD-10-PCS; principal; 2016-09-22)
DX: I61.8 Other nontraumatic intracerebral hemorrhage (principal); N17.9 Acute kidney failure, unspecified; N13.8 Other obstructive and reflux uropathy; I10 Essential (primary) hypertension; E11.9 Type 2 diabetes mellitus without complications; B95.61 Methicillin susceptible Staphylococcus aureus infection as the cause of diseases classified elsewhere; N39.0 Urinary tract infection, site not specified; T39.015A Adverse effect of aspirin, initial encounter; E78.5 Hyperlipidemia, unspecified; G47.33 Obstructive sleep apnea (adult) (pediatric); K21.0 Gastro-esophageal reflux disease with esophagitis; E03.9 Hypothyroidism, unspecified; R29.810 Facial weakness; N39.41 Urge incontinence; E78.00 Pure hypercholesterolemia, unspecified; I69.311 Memory deficit following cerebral infarction; Z82.3 Family history of stroke; Y92.9 Unspecified place or not applicable; N40.1 Benign prostatic hyperplasia with lower urinary tract symptoms
CPT/HCPCS: 36569; 70450; 70544; 70546; 70548; 70551; 70553; 71010; 74176; 76937; 80048; 80053; 80061; 80202; 80307; 81001; 81240; 81241; 82550; 82607; 82746; 82948; 83036; 83605; 83735; 83921; 84100; 84207; 84425; 84439; 84443; 84484; 85007; 85025; 85027; 85240; 85300; 85303; 85306; 85610; 85613; 85652; 85730; 86038; 86140; 86147; 86403; 86430; 86592; 86850; 86900; 86901; 87040; 87086; 87149; 87186; 87205; 87641; 93005; 93225; 93226; 93306; 94003; 94150; 94770; 95819; A9579; C9113; C9248; J0360; J0690; J3370; J3480; J7030; J7050; Q9963